=== PATIENT | female | born 1955 | race Caucasian/White ===

== ENCOUNTER 2019-10-06 13:53 | Outpatient (CLI) | payer MEDICARE, MEDICAID, SELFPAY ==
--- NOTE | 2019-10-06 14:01 | MM_ITS ---
WS: [id number] BILATERAL SCREENING DIGITAL MAMMOGRAM WITH CAD HISTORY: SCREENING COMPARISON: 08/09/2018 07/21/2017 Bilateral CC and MLO views submitted. Computer aided detection analyzed. Breast composition: There are scattered areas of fibroglandular density. No suspicious masses, microc alcifications or architectural distortion. Benign calcifications within each breast. MM/[place] [id number] IMPRESSION: BI-RADS: 2-Benign FOLLOW UP: 1 Year Follow-up
== END 2019-10-06 13:54 | disposition home or self-care (01) ==
LOC: RADSHAW 13:58
PROVIDERS: Family Provider Family Medicine; PCP Family Medicine; Visit Provider Family Medicine
DX: Z12.31 Encounter for screening mammogram for malignant neoplasm of breast (principal)
CPT/HCPCS: 77067

== ENCOUNTER → 2020-02-29 08:32 | Outpatient (BNVA) | payer MEDICARE, MEDICAID, SELFPAY | PROVIDERS: Family Provider Family Medicine; PCP Family Medicine; Referring Provider Family Medicine; Visit Provider Specialist | DX: G62.9 Polyneuropathy, unspecified (principal); G57.93 Unspecified mononeuropathy of bilateral lower limbs; M79.661 Pain in right lower leg; M79.662 Pain in left lower leg; R20.0 Anesthesia of skin; R20.2 Paresthesia of skin | CPT/HCPCS: 95909 ==

== ENCOUNTER → 2020-04-11 07:51 | Outpatient (BNVA) | payer MEDICARE, MEDICAID, SELFPAY | PROVIDERS: Family Provider Family Medicine; PCP Family Medicine; Visit Provider Licensed Practical Nurse | DX: G63 Polyneuropathy in diseases classified elsewhere (principal); R20.0 Anesthesia of skin; R20.2 Paresthesia of skin | CPT/HCPCS: 99204 ==

== ENCOUNTER 2020-04-20 08:53 | Outpatient (CLI) | payer MEDICARE, MEDICAID, SELFPAY ==
--- NOTE | 2020-04-20 09:00 | CT_ITS ---
WS: [id number] CT LUMBAR SPINE, noncontrast. HISTORY: Low back pain, gait instability TECHNIQUE: Contiguous 2.5 mm axial imaging are performed. Sagittal and coronal reformats are submitte d and reviewed. All CT scans at [facility] use at least one of these dose optimization te chniques: automated exposure control; mA and/or kV adjustment per patient size (includes targeted exa ms where dose is matched to clinical indication); or iterative reconstruction. IV contrast: None DLP: 1664.44 mGycm COMPARISON: 06/19/2008 Normal lumbar alignment. Less than 2 mm retrolisthesis of L1. Mild disc space narrowing at L1-2 and L 5-S1. Small endplate hypertrophic osteophytes at all levels. No fractures. L1-2: Mild asymmetric disc bulging. No stenosis. L2-3: Mild annular disc bulging without stenosis. L3-4: Mild annular disc bulging. No significant encroachment or focal disc protrusion. L4-5: Diffuse annular disc bulging with mild ligamentum flavum hypertrophy and facet arthritis. Mild central, subarticular recess and foraminal stenosis. L5-S1: Mild diffuse annular disc bulging with osteophytic ridging. Vertebral body osteophytes encroac h into the LEFT foramen most significantly. Effacement of fat in the foramen with slightly greater st enosis on the LEFT. Similar findings were noted on the prior study. Prior cholecystectomy. Mild atherosclerosis aorta. CT/CT lumbar spine wo con* [id number] IMPRESSION: 1. Moderate bilateral foraminal stenosis at L5-S1, greater on the LEFT. Simila r to the prior study from 2007. 2. Mild central, subarticular recess and foraminal stenosis at L4-5 is stable.
== END 2020-04-20 08:54 | disposition home or self-care (01) ==
LOC: RADWPI 08:57
PROVIDERS: Family Provider Family Medicine; PCP Family Medicine; Visit Provider Licensed Practical Nurse
DX: M54.5 Low back pain (principal); R26.89 Other abnormalities of gait and mobility; M48.07 Spinal stenosis, lumbosacral region; M48.061 Spinal stenosis, lumbar region without neurogenic claudication
CPT/HCPCS: 72131

== ENCOUNTER → 2020-05-02 10:55 | Outpatient (BNVA) | payer MEDICARE, MEDICAID, SELFPAY | PROVIDERS: Family Provider Family Medicine; PCP Family Medicine; Visit Provider Licensed Practical Nurse | DX: G63 Polyneuropathy in diseases classified elsewhere (principal) | CPT/HCPCS: 99213 ==

== ENCOUNTER 2020-05-23 12:42 | Outpatient (CLI) | payer MEDICARE, MEDICAID, SELFPAY ==
--- NOTE | 2020-05-23 12:46 | USCV_ITS ---
Alpa Barrera Age: 64 Gender: F : 1955 Exam Date: 05/23/2020 13:19 Ordering Phys: Rafal Kwok MD Technologist: Morales Morrow Exam Location: [facility] – [place] Indication: HISTORY: Lower extremity edema. PROCEDURES: Bilateral duplex Venous Insufficiency study of the Deep and Superficial systems was carried out according to normal protocol with the patient in supine positon for deep system and dependent position for the superficial system. FINDINGS: All deep veins demonstrated compressibility without evidence of intraluminal thrombus or increased echogenicity. Spectral analysis of Doppler signals demonstrates normal response to compression maneuvers indicating patency without obstruction. Reflux determinations were made with the patient in the dependent position, the weight being on the contralateral leg. Vein measurements and reflux times are listed below were applicable. No notable reflux was seen at this time. CONCLUSIONS No evidence of DVT in the above-mentioned identifiable veins. No significant venous reflux either in the deep or superficial veins Dr Toñito Becerra MD [facility] (Electronically Signed) Final Date: 24 May 2020 15:06 S
== END 2020-05-23 12:43 | disposition home or self-care (01) ==
PROVIDERS: PCP Family Medicine; Visit Provider Family Medicine
DX: I87.8 Other specified disorders of veins (principal); R60.0 Localized edema
CPT/HCPCS: 93970

== ENCOUNTER → 2020-09-06 08:53 | Outpatient (BNVA) | payer MEDICARE, MEDICAID, SELFPAY | PROVIDERS: PCP Family Medicine; Visit Provider Internal Medicine Rheumatology | DX: M05.79 Rheumatoid arthritis with rheumatoid factor of multiple sites without organ or systems involvement (principal); Z79.899 Other long term (current) drug therapy; Z11.59 Encounter for screening for other viral diseases; Z11.1 Encounter for screening for respiratory tuberculosis; M17.0 Bilateral primary osteoarthritis of knee; E11.42 Type 2 diabetes mellitus with diabetic polyneuropathy; Z79.4 Long term (current) use of insulin; Z87.891 Personal history of nicotine dependence | CPT/HCPCS: 36415; 99204 ==

== ENCOUNTER 2020-09-06 10:12 | Outpatient (CLI) | payer MEDICARE, MEDICAID, SELFPAY ==
--- NOTE | 2020-09-06 10:19 | XR_ITS ---
WS: [id number] RIGHT FOOT: 3 VIEW(S) TECHNIQUE: AP, oblique and lateral. HISTORY: M06.9 - Rheumatoid arthritis, unspecified COMPARISON: None available. Mild hallux valgus deformity. Small osteophyte along the medial first metatarsal phalangeal joint. No erosions at the metatarsal heads. No subluxations. Small calcaneal spur. No osteopenia. No soft tissue abnormality or bone destruction. XR/XR foot RT min 3V* [id number] IMPRESSION: No metatarsal erosions. Mild hallux valgus deformity.
--- NOTE | 2020-09-06 10:19 | XR_ITS ---
WS: [id number] RIGHT KNEE: 3 VIEW(S) TECHNIQUE: AP, oblique(s) and lateral. HISTORY: M06.9 - Rheumatoid arthritis, unspecified COMPARISON: None available. No fracture or dislocation. Mild narrowing of the medial compartment with small marginal osteophytes. No erosions or subluxation. Possible minimal small effusion. No soft tissue abnormality. XR/XR knee RT 3V* [id number] IMPRESSION: Mild osteoarthritis medial compartment. No erosions.
--- NOTE | 2020-09-06 10:19 | XR_ITS ---
WS: [id number] LEFT KNEE: 3 VIEW(S) TECHNIQUE: AP, oblique(s) and lateral. HISTORY: M06.9 - Rheumatoid arthritis, unspecified COMPARISON: None available. No fracture or dislocation. Mild narrowing of the medial compartment. No joint effusion. No soft tissue abnormality. XR/XR knee LT 3V* [id number] IMPRESSION: Mild medial compartment joint space narrowing.
--- NOTE | 2020-09-06 10:19 | XR_ITS ---
WS: [id number] CHEST 2 VIEWS HISTORY: M06.9 - Rheumatoid arthritis, unspecified COMPARISON: 06/27/2019 Lungs: Clear with no abnormality. No pleural effusion or pneumothorax. Cardiac size: Normal. Mediastinum/Aorta: Mild atherosclerosis aorta. Bones: Prior anterior cervical fusion hardware. XR/XR chest 2V* [id number] IMPRESSION: No acute cardiopulmonary disease. Stable chest.
--- NOTE | 2020-09-06 10:19 | XR_ITS ---
WS: [id number] LEFT HAND: 3 VIEW(S) TECHNIQUE: PA, oblique and lateral. HISTORY: M06.9 - Rheumatoid arthritis, unspecified COMPARISON: 10/04/2008 No acute fracture or dislocation. No erosions. No osteopenia. Mild interphalangeal joint space narrowing. XR/XR hand LT min 3V* [id number] IMPRESSION: 1. No metacarpal head erosions. 2. Mild osteoarthritis.
--- NOTE | 2020-09-06 10:19 | XR_ITS ---
WS: [id number] RIGHT HAND: 3 VIEW(S) TECHNIQUE: PA, oblique and lateral. HISTORY: M06.9 - Rheumatoid arthritis, unspecified COMPARISON: None available. No acute fracture or dislocation. Mild interphalangeal joint space narrowing. No erosions. No osteopenia. XR/XR hand RT min 3V* [id number] IMPRESSION: 1. No erosions. 2. Mild interphalangeal joint space narrowing due to osteoarthritis.
--- NOTE | 2020-09-06 10:19 | XR_ITS ---
WS: [id number] LEFT FOOT: 3 VIEW(S) TECHNIQUE: AP, oblique and lateral. HISTORY: M06.9 - Rheumatoid arthritis, unspecified COMPARISON: 11/09/2015 No acute fracture or dislocation. Normal tarsal/metatarsal alignment. Small calcification or osseous density again noted adjacent to the distal lateral calcaneus. Moderate size calcaneal spur. XR/XR foot LT min 3V* [id number] IMPRESSION: No metatarsal head erosions.
== END 2020-09-06 10:13 | disposition home or self-care (01) ==
PROVIDERS: PCP Family Medicine; Visit Provider Internal Medicine Rheumatology
DX: M06.9 Rheumatoid arthritis, unspecified (principal); Z79.899 Other long term (current) drug therapy; M17.11 Unilateral primary osteoarthritis, right knee; M19.042 Primary osteoarthritis, left hand; M19.041 Primary osteoarthritis, right hand; M20.11 Hallux valgus (acquired), right foot
CPT/HCPCS: 71046; 73130; 73562; 73630; 80076; 82306; 82565; 85025; 85651; 86140; 86480; 86704; 86803; 87340

== ENCOUNTER 2021-06-17 11:34 | Emergency (ER) | payer MEDICARE, MEDICAID, SELFPAY ==
[2021-06-17 11:56] VITALS: BP 182/80; PULSE 62; RESP 18; TEMP 36.3; O2SAT 98; BMI 42.5
--- NOTE | 2021-06-17 12:03 | ECG_ITS ---
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 Measurements Intervals [place] Rate: 59 P: -73 UT: 167 QRS: -7 QRSD: 74 T: 63 QT: 412 QTc: 409 Interpretive Statements ECTOPIC ATRIAL BRADYCARDIA LOW QRS VOLTAGE IN PRECORDIAL LEADS [QRS DEFLECTION < 1.0 mV IN CHEST LEADS] POSSIBLE ANTERIOR MYOCARDIAL INFARCTION , PROBABLY OLD [30 ms Q WAVE IN V3/V4, OR R < 0.2 mV IN V4] ABNORMAL RHYTHM ECG Compared to ECG 07/01/2019 12:18:20 Bradycardia, nonsinus now present Myocardial infarct finding now present Sinus bradycardia no longer present Electronically Signed On 06-17-2021 23:47:09 CDT by Toñito Becerra M.D. [id number]
--- NOTE | 2021-06-17 12:33 | XR_ITS ---
WS: [id number] Exam: XR chest 1V portable [id number] Date/Time of Exam: 06/17/2021 12:33 PM Reason For Exam: chest pain Comparison 09/06/2020. The lungs are clear and fully expanded. Normal cardiomediastinal silhouette. Normal bony structures. Costophrenic angles are sharp. Fusion hardware noted in the lower cervical spine. XR/XR chest 1V portable [id number] IMPRESSION: 1. No acute cardiopulmonary process identified.
[2021-06-17 14:01] LABS: Basophils % 0.4 %; Eosinophils # 0.2 10^3/uL (0.0-0.8); Eosinophils % 2.2 %; Hematocrit 46.6 % (37.0-47.0); Hemoglobin 15.1 g/dL (11.5-15.3); Lymphocytes # 2.8 10^3/uL (0.8-4.8); Lymphocytes % 34.5 %; Mean Corpuscular HGB Conc 32.4 g/dL (30.0-36.0); Mean Corpuscular Hemoglobin 29.9 pg (28.0-34.0); Mean Corpuscular Volume 92.3 fl (81-99); Mean Platelet Volume 11.3 fL (7.4-10.4); Monocytes # 0.6 10^3/uL (0.2-0.9); Monocytes % 7.1 %; Neutrophils # 4.47 10^3/uL (1.8-7.7); Neutrophils % 55.7 %; Nucleated Red Blood Cells % 0 %; Platelet Count 196 10^3/cmm (130-400); Red Blood Count 5.05 10^6/uL (4.1-5.3)
[2021-06-17 14:28] LABS: Alanine Aminotransferase 20 U/L (0-33); Albumin Level 4.1 g/dL (3.5-5.2); Alkaline Phosphatase 78 IU/L (35-105); Anion Gap 16.2 (5-19); Aspartate Amino Transferase 17 U/L (0-32); Blood Urea Nitrogen 17 mg/dL (8-23); Calcium 9.6 mg/dL (8.5-10.5); Carbon Dioxide 27 mmol/L (22-29); Chloride 102 mmol/L (98-107); Globulin 3.2 g/dL (1.3-4.6); Glomerular Filtration Rate 99.7 mL/min (90-130); Glucose 158 mg/dL (65-115); Osmolality Calculated 297 mOsm/kg (285-295); Potassium 4.2 mmol/L (3.5-5.1); Sodium 141 mmol/L (136-145); Total Bilirubin 0.3 mg/dL (0.15-1.2); Total Protein 7.3 g/dL (6.6-8.7)
--- NOTE | 2021-06-17 14:28 | ED_ITS ---
HPI - Chest Pain General: Chief Complaint: Chest Pain Stated Complaint: Chest Pain for Several Days Time Seen by Provider: 06/17/21 14:16 History of Present Illness: HPI narrative: 65-year-old female presents emergency room with complaint of chest pain. States she has had central chest pain radiating into her shoulders for the last 4 days intermittently at times she will get short of breath with that she does not get diaphoretic or nauseous. Is relieved by rest and slightly exacerbated by activity.. MD complaint: chest pain Onset (ago): day(s) (4) Timing of current episode: episodic Onset: during rest Pain location: substernal Pain radiation: left shoulder and right shoulder Quality: aching and heaviness Relieving factors: rest Exacerbating factors: nothing Associated symptoms: Deny abdominal pain, diaphoresis, dyspnea, fever(s), leg edema, nausea, palpitations, sense of impending doom, syncope or vomiting Treatment prior to arrival: none Review of Systems Const: Denies: fever(s) or diaphoresis ENMT: Denies: throat pain, ear or mastoid pain, nasal discharge or nasal congestion Card: Denies: palpitations or syncope Resp: Denies: dyspnea GI: Denies: abdominal pain, nausea or vomiting : Denies: flank pain, difficulty voiding, dysuria, urinary frequency or urinary urgency Skin/Breast: Denies: rash or pruritus PFSH ED PFSH: Medical History Anticoagulation adequate with anticoagulant therapy Atrial fibrillation Carotid stenosis Conversion disorder Diabetes Dyslipidemia High risk medication use IDDM (insulin dependent diabetes mellitus) Immunization counseling Numbness and tingling of both feet Seropositive rheumatoid arthritis of multiple sites Sleep apnea Surgical History History of appendectomy History of cholecystectomy History of hysterectomy Family History Mother Diabetes Hypertension Father Diabetes CAD (coronary artery disease) Hypertension Sister Hypertension Diabetes Brother Diabetes Social History Smoking and tobacco status: former smoker Alcohol intake: former Household members: spouse Marital status: Current occupational status: disabled History of recent travel: No Physical Exam Const: COMMON NORMALS: no acute distress GENERAL APPEARANCE: cooperative and comfortable ORIENTATION/CONSCIOUSNESS: Yes awake, Yes oriented to person, Yes oriented to place and Yes oriented to time HENMT: COMMON NORMALS: normocephalic, atraumatic and hearing grossly normal bilaterally HEAD & SCALP: normocephalic and atraumatic Neck/C-Spine: COMMON NORMALS: no JVD Resp: COMMON NORMALS: normal respiratory effort, No retractions, No use of accessory muscles and clear to auscultation bilaterally AUSCULTATION: clear to auscultation bilaterally Cardio: COMMON NORMALS: no JVD, regular rate, regular rhythm and No murmurs present (Cardio) RATE: regular rate RHYTHM: regular rhythm GI: COMMON NORMALS: Soft to palpation and No hepatosplenomegaly present AUSCULTATION: Yes normoactive bowel sounds PALPATION: Yes Soft to palpation, No Tenderness to palpation present (GI), No Guarding due to palpation present (GI) and Yes No hepatosplenomegaly present Extremity: COMMON NORMALS: normal to inspection, capillary refill normal, no clubbing, cyanosis or edema, no calf tenderness and no pedal edema Neuro: SENSORIUM/ORIENTATION: Yes oriented to person, Yes oriented to place and Yes oriented to time Skin: COMMON NORMALS: no rashes or lesions noted GENERAL SKIN EXAM: no rashes or lesions noted Course Vital Signs: Vital signs: Vital Signs Temperature 97.4 F L 06/17/21 11:56 Pulse Rate 62 06/17/21 15:04 Respiratory Rate 20 H 06/17/21 15:04 Blood Pressure 178/93 06/17/21 15:04 Pulse Oximetry 93 06/17/21 15:04 MDM - Chest Pain MDM Narrative: Medical decision making narrative: Labs and imaging EKGs reviewed as found in the chart. Discussed different options with the patient. She is feeling better and she would prefer to go home. Discussed going home versus admission she would prefer to go home at this point. She is on anticoagulation said no history of atrial fibrillation we will discharge her home at isosorbide mononitrate encourage patient return immediately if she has any further problems otherwise follow-up with primary care or cardiology within the next week. Lab Data: Labs: Lab Results 06/17/21 06/17/21 06/17/21 13:40 13:40 13:40 WBC 8.0 10^3/uL 10^3/ uL (4.0-10.0) RBC 5.05 10^6/uL 10^6 /uL (4.1-5.3) Hgb 15.1 g/dL g/dL (11.5-15.3) Hct 46.6 % % (37.0-47.0) MCV 92.3 fl fl (81-99) MCH 29.9 pg pg (28.0-34.0) MCHC 32.4 g/dL g/dL (30.0-36.0) RDW 13.0 % % (12.1-15.1) Plt Count 196 10^3/cmm 10^3 /cmm (130-400) MPV 11.3 fL H fL (7.4-10.4) Neut % (Auto) 55.7 % % Lymph % (Auto) 34.5 % % [place] % (Auto) 7.1 % % Eos % (Auto) 2.2 % % Baso % (Auto) 0.4 % % Neut # (Auto) 4.47 10^3/uL 10^3 /uL (1.8-7.7) Lymph # (Auto) 2.8 10^3/uL 10^3/ uL (0.8-4.8) [place] # (Auto) 0.6 10^3/uL 10^3/ uL (0.2-0.9) Eos # (Auto) 0.2 10^3/uL 10^3/ uL (0.0-0.8) Baso # (Auto) 0.0 10^3/uL 10^3/ uL (0.0-0.1) Nucleated RBC % (a uto) 0 % % Nucleated RBCs # 0.0 /100WBC /100W BC Sodium 141 mmol/L mmol/L (136-145) Potassium 4.2 mmol/L mmol/L (3.5-5.1) Chloride 102 mmol/L mmol/L (98-107) Carbon Dioxide 27 mmol/L mmol/L (22-29) Anion Gap 16.2 (5-19) BUN 17 mg/dL mg/dL (8-23) Creatinine 0.6 mg/dL mg/dL (0.5-0.9) GFR Calculation 99.7 mL/min mL/mi n (90-130) Glucose 158 mg/dL H mg/dL (65-115) Calculated Osmolal ity 297 mOsm/kg H mOs m/kg (285-295) Calcium 9.6 mg/dL mg/dL (8.5-10.5) Total Bilirubin 0.3 mg/dL mg/dL (0.15-1.2) AST 17 U/L U/L (0-32) ALT 20 U/L U/L (0-33) Alkaline Phosphata se 78 IU/L IU/L (35-105) Troponin T Baselin e 9 ng/L ng/L (0-10) Total Protein 7.3 g/dL g/dL (6.6-8.7) Albumin 4.1 g/dL g/dL (3.5-5.2) Globulin 3.2 g/dL g/dL (1.3-4.6) Discharge Plan Discharge Patient Disposition: Home Clinical Impression: Atypical chest pain, IDDM (insulin dependent diabetes mellitus), Anticoagulation adequate with anticoagulant therapy, Atrial fibrillation Condition: Stable Prescriptions: New isosorbide mononitrate 30 mg tablet extended release 24 hr 30 mg PO DAILY Qty: 30 RF: 0 No Action insulin asp prt-insulin aspart [Novolog Mix 70-30FlexPen U-100] 100 unit/mL (70-30) insulin pen 4 unit SUBCUT .sliding scale RF: 0 Tresiba FlexTouch U-200 200 unit/mL (3 mL) insulin pen 23 unit SUBCUT .at night RF: 0 sotalol 80 mg tablet 80 mg PO BID Qty: 180 RF: 4 aspirin [Aspir-81] 81 mg tablet,delayed release (DR/EC) 81 mg PO DAILY RF: 0 verapamil 180 mg capsule,ext rel. pellets 24 hr 180 mg PO DAILY Qty: 90 RF: 3 albuterol sulfate [ProAir HFA] 90 mcg/actuation HFA aerosol inhaler 2 puff INHALATION Q4H PRNRF: 0 alpha lipoic acid 200 mg capsule 200 mg PO TID RF: 0 pantoprazole 40 mg tablet,delayed release (DR/EC) 40 mg PO QAM Qty: 90 RF: 3 bismuth subsalicylate [Bismuth] 262 mg tablet,chewable 1 tab PO BID Qty: 60 RF: 4 amitriptyline 25 mg tablet 75 mg PO DAILY RF: 0 prednisone 5 mg tablet 5 mg PO DAILY Qty: 30 RF: 0 Hold Instructions: Doctor's Order sulfasalazine 500 mg tablet 1 g PO BID Qty: 120 RF: 3 amlodipine 5 mg tablet 5 mg PO DAILY Qty: 90 RF: 3 olmesartan-hydrochlorothiazide 40-12.5 mg tablet 1 tab PO DAILY Qty: 90 RF: 3 folic acid 1 mg tablet 1 mg PO DAILY Qty: 90 RF: 3 methotrexate sodium 2.5 mg tablet 15 mg PO .Q7days Qty: 30 RF: 3 diclofenac sodium 1 % gel 2 g topical QID Qty: 100 RF: 2 cholecalciferol (vitamin D3) 50 mcg (2,000 unit) capsule 50 mcg PO DAILY Qty: 30 RF: 0 acetaminophen-codeine 300-15 mg tablet 1 tab PO BID Qty: 60 RF: 5 Eliquis 5 mg tablet 5 mg PO BID Qty: 180 RF: 3 Discharge Orders: Discharge ED (Routine); Ordered 06/17/21 Ordered By: Rakesh Tobias Referrals: Rafal Kwok MD [Primary Care Provider] - Discharge Diet: Usual diet Discharge Activity: Limit activity as instructed Patient Instructions: Opioid Safety Activity Restrictions/Additional Instructions: Case management will make arrangements for you to see cardiology within the next week. Return if you have further problems. Coding Level of Care Code ED Video Tape Duplicator for Tavo Fwd Exam Comprehensive
[2021-06-17 14:31] LABS: Troponin(5th) Baseline 9 ng/L (0-10)
[2021-06-17 14:46] VITALS: BP 178/93; PULSE 55; RESP 20; O2SAT 97
[2021-06-17 15:04] VITALS: BP 178/93; PULSE 62; RESP 20; O2SAT 93
== END 2021-06-17 15:05 | disposition home or self-care (01) ==
PROVIDERS: Physician Assistant; Emergency Provider Family Medicine; PCP Family Medicine
DX: R07.89 Other chest pain (principal); E10.8 Type 1 diabetes mellitus with unspecified complications; I48.91 Unspecified atrial fibrillation; E78.5 Hyperlipidemia, unspecified; Z79.01 Long term (current) use of anticoagulants; Z79.82 Long term (current) use of aspirin; Z79.4 Long term (current) use of insulin; Z79.899 Other long term (current) drug therapy
CPT/HCPCS: 71045; 80053; 84484; 85025; 93005; 99283

== ENCOUNTER 2021-07-17 07:26 | Outpatient (CLI) | payer MEDICARE, MEDICAID, SELFPAY ==
--- NOTE | 2021-07-17 07:33 | ECG_ITS ---
[facility] Test Date: 2021-07-17 Pat Name: Alpa Barrera Department: Room: Gender: Female Slack Cooper: : 1955 Requested By: Rafal Valverde Order Number: [id number] Laurie MD: DANUTA STONE Interpretive Statements NAME OF STUDY: LEXISCAN SESTAMIBI STRESS TEST INDICATION: Chest Pain, SEND RESULTS TO DR. LANGE NOTE: Please note that this is the electrocardiogram portion of the Lexiscan/Sestamibi stress test. The perfusion scan will be documented separately. DATA: Baseline heart rate was 58 beats per minute. Baseline blood pressure was 153/87 millimeters of mercury. Target heart rate was 153. Maximum heart rate achieved was 81. which was 52 % of the predicted target heart rate. Maximum blood pressure was 153/92 millimeters of mercury. The reason for ending the test was completion of the protocol. The patient did not experience any symptoms. ELECTROCARDIOGRAM: BASELINE: Sinus rhythm. Normal axis. Otherwise, no ST-T changes suggestive of ischemia noted. No arrhythmia noted. EXERCISE: After Lexiscan injection, no ST-T changes suggestive of ischemic noted. No arrhythmia noted. 1. EKG not suggestive of ischemia 2. Lexiscan injection unremarkable. 3. Perfusion scan will be documented separately. Electronically Signed On 07-17-2021 11:34:58 FOLDER SEAMER by DANUTA STONE [id number]
--- NOTE | 2021-07-17 07:34 | NMCV_ITS ---
NM adam perf SPECT r/s* [id number] Alpa Barrera Age: 65 Gender: F : 1955 Exam Date: 07/17/2021 07:34 Ordering Phys: Rafal Kwok MD Technologist: SHARI Nunn Exam Location: [facility] Indications: CHEST PAIN STRESS TEST [facility] IMAGE PROTOCOL Rest/Stress 1 Lexiscan Day Radiopharmaceutical Dose (mCi) Administration Site Administered by Rest: Tc-99m 10.8 IV SHARI Mckoy Sestamibi Stress:Tc-99m 32.6 IV SHARI Nunn Sestamidanny Rest: 17-Jul-2021 60 Discovery 630 Stress: 17-Jul-2021 30 Discovery 630 0.4mg Lexiscan. Images obtained in supine and prone position. SPECT RESULTS Technical Quality: Excellent Raw Data Analysis: Breast attenuation Image Corrections: No attenuation or motion correction applied Summed Stress Score: 6 Summed Rest Score: 3 Summed Difference Score: 3 PERFUSION FINDINGS Small area of fixed perfusion defect noted in distal apical, apical inferior and apical lateral wall suggestive of old myocardial infarction versus scarring. FUNCTIONAL RESULTS (calculated via Gated SPECT) Stress Image LV EF (%): 71 Stress EDV (mL):102 TID: 1.06 Stress ESV (mL):30 Rest Image LV EF (%): 71 FUNCTIONAL FINDINGS: There is normal left ventricular systolic function. IMPRESSIONS Small area of old myocardial infarction versus scarring noted in the distal apical, apical inferior and apical lateral wall without precious-infarct ischemia. EKG segment to be documented separately. Fatou Valentino MD (Electronically Signed) Final Date: 17 July 2021 11:26 S
[2021-07-17 07:42] VITALS: BMI 43.4
[2021-07-17] MEDS: regadenoson 0.4 Mg/5 ml Syringe IVP (09:37)
[2021-07-17 09:54] VITALS: BP 136/84; PULSE 66
== END 2021-07-17 07:27 | disposition home or self-care (01) ==
LOC: CDL 07:27
PROVIDERS: PCP Family Medicine; Visit Provider Family Medicine
DX: R07.89 Other chest pain (principal)
CPT/HCPCS: 78452; 93017; A9500; J2785

== ENCOUNTER 2021-09-20 08:19 | Emergency (ER) | payer MEDICARE, MEDICAID, SELFPAY ==
[2021-09-20 08:33] VITALS: BP 174/83; PULSE 70; RESP 19; TEMP 36.9; O2SAT 98; BMI 43.4
--- NOTE | 2021-09-20 08:36 | CT_ITS ---
WS: [id number] CT HEAD NONCONTRAST HISTORY: Symptoms of Acute Stroke TECHNIQUE: Contiguous axial imaging performed through the brain in 2.5 mm imaging. Bone and soft tiss ue windows. Sagittal and coronal reformats reviewed. All CT scans at [facility] use at least one of these dose optimization techniques: automated exposure control; mA and/or kV adjustment per pa tient size (includes targeted exams where dose is matched to clinical indication); or iterative recon struction. DLP: 752.93 mGy.cm COMPARISON: 06/27/2019 No acute intracranial hemorrhage, midline shift or mass effect. Mild atrophy is symmetric bilaterally. No acute area of sulcal effacement. Very mild chronic microvas cular ischemic type changes. Ventricles: Normal size with no hydrocephalus. Paranasal sinuses: As visualized are clear. Mastoid air cells: Well pneumatized. Calvarium and scalp: Skull is intact with no soft tissue edema or swelling. CT/CT head wo con* [id number] IMPRESSION: 1. No acute intracranial hemorrhage or edema. 2. Mild atrophy and chronic white matter ischemic disease. No evidence for an acute infarct. Notified Rakesh Tobias DO at 09/20/2021 9:05 AM.
--- NOTE | 2021-09-20 09:02 | ED_ITS ---
HPI - Neuro Symptoms/Deficit General: Chief Complaint: Neuro Symptoms/Deficit Stated Complaint: Stoke-like symptoms Time Seen by Provider: 09/20/21 08:35 Source: patient History of Present Illness: 65-year-old female comes in complaining of numbness at the tip of her tongue on the left side as well as facial droop on the left side. This all began about a day and 1/2 to 2 days ago initially began with some pain behind the left ear. She had a difficult time closing her eye on the left side as well some tearing of the eye and difficulty with swallowing when she goes to swallow she is liquid dribble out the left corner of her mouth. She has previously had strokes in the past. She is on apixaban for atrial fibrillation. She told me that her symptoms began Thursday evening. She had told the nurse that began yesterday around noon. She has a history neuropathy and wears braces on both legs. Onset (ago): day(s) Timing confirmed by: family member Location: left face Severity: moderate Quality: weak, tingling and burning Relieving factors: none Exacerbating factors: none Context: gradual onset Associated symptoms: Deny chest pain, cough, diaphoresis, fevers/chills, headache(s), anorexia, malaise, nausea, seizures, short of breath, syncope, tingling, vertigo, vomiting or weakness Treatments Prior to Arrival: none Review of Systems Const: Denies: malaise or diaphoresis ENMT: Denies: throat pain, ear or mastoid pain, nasal discharge or nasal congestion Card: Denies: chest pain or syncope Resp: Denies: dyspnea, productive cough or non-productive cough GI: Denies: nausea or vomiting : Denies: flank pain, difficulty voiding, dysuria, urinary frequency or urinary urgency Skin/Breast: Denies: rash or pruritus Neuro: Denies: headache(s) or vertigo PFSH ED PFSH: Medical History Anticoagulation adequate with anticoagulant therapy Atrial fibrillation Carotid stenosis Conversion disorder Diabetes Dyslipidemia High risk medication use IDDM (insulin dependent diabetes mellitus) Immunization counseling Numbness and tingling of both feet Seropositive rheumatoid arthritis of multiple sites Sleep apnea Surgical History History of appendectomy History of cholecystectomy History of hysterectomy Family History Mother Diabetes Hypertension Father Diabetes CAD (coronary artery disease) Hypertension Sister Hypertension Diabetes Brother Diabetes Social History Alcohol intake: former Household members: spouse Marital status: Current occupational status: disabled History of recent travel: No NIH stroke score NIHSS: Level Of Consciousness - 1a: 0 Level Of Consciousness Questions - 1b: Both Correct Level Of Consciousness Commands - 1c: Both Correct Best Gaze - 2: Normal Visual Solitario - 3: No Visual Loss Facial Palsy - 4: Minor Paralysis Motor Arm Right - 5: No Drift Motor Arm Left - 5: No Drift Motor Leg Right - 6: No Drift Motor Leg Left - 6: No Drift Limb Ataxia - 7: Absent Sensory - 8: Normal Best Language - 9: No Aphasia Dysarthia - 10: Normal Extinction And Inattention - 11: 0 Score: Total Score: 1 Physical Exam Const: GENERAL APPEARANCE: cooperative and comfortable ORIENTATION/CONSCIOUSNESS: Yes awake, Yes oriented to person, Yes oriented to place and Yes oriented to time HENMT: COMMON NORMALS: normocephalic, atraumatic, hearing grossly normal bilaterally, external ears normal, EAC's normal, TM's normal bilaterally, Normal nasal mucous membranes and turbinates present, moist oral mucous membranes and oropharynx normal HEAD & SCALP: normocephalic and atraumatic NOSE: Normal nasal mucous membranes and turbinates present EXTERNAL EAR: Yes external ears normal EXTERNAL AUDITORY CANAL: EAC's normal TYMPANIC MEMBRANE: TM's normal bilaterally Eye: COMMON NORMALS: Equal, round and reactive pupils present, EOMs intact bilaterally, conjunctivae normal and no scleral icterus CONJUNCTIVA: Yes conjunctivae normal PUPIL: Yes Equal, round and reactive pupils present Neck/C-Spine: COMMON NORMALS: full ROM, no lymphadenopathy, supple and no JVD Lymph: LYMPHATIC: no lymphadenopathy noted and no lymphedema noted Resp: COMMON NORMALS: normal respiratory effort, No retractions, No use of accessory muscles and clear to auscultation bilaterally AUSCULTATION: clear to auscultation bilaterally Cardio: COMMON NORMALS: no JVD, regular rate, regular rhythm and No murmurs present (Cardio) RATE: regular rate RHYTHM: regular rhythm GI: COMMON NORMALS: Soft to palpation and No hepatosplenomegaly present AUSCULTATION: Yes normoactive bowel sounds PALPATION: Yes Soft to palpation, No Tenderness to palpation present (GI), No Guarding due to palpation present (GI) and Yes No hepatosplenomegaly present Extremity: COMMON NORMALS: normal to inspection, capillary refill normal, no clubbing, cyanosis or edema, no calf tenderness and no pedal edema Neuro: SENSORIUM/ORIENTATION: Yes oriented to person, Yes oriented to place and Yes oriented to time OTHER: Left-sided lower facial droop including the left forehead. Patient is unable to completely close left eye and has a droop at the corner of the left mouth. 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 She has previously had strokes per her report. She is on Eliquis and her onset of symptoms is at very best just short of 24 hours and may be even substantially longer based on the varying history she gave. CT reviewed discussed with the patient discharged home with prednisone. Medical Records I reviewed the patient's medical records. Lab Data I reviewed the patient's lab results. Radiology Impressions Head CT 09/20/21 08:36 IMPRESSION: 1. No acute intracranial hemorrhage or edema. 2. Mild atrophy and chronic white matter ischemic disease. No evidence for an acute infarct. Notified Rakesh Tobias DO at 09/20/2021 9:05 AM. Laboratory Results POC Glucose 125 mg/dL (70-110) H 09/20/21 09:11 Discharge Plan Discharge Patient Disposition: Home Clinical Impression: De Leon's palsy Condition: Stable Prescriptions: New prednisone 20 mg tablet 20 mg PO TID 5 Days Qty: 15 0RF Held prednisone 5 mg tablet 5 mg PO DAILY Qty: 30 0RF Hold Instructions: Resume on 09/25/21. Rx Instructions: take 1 tab daily for 7 days then call the Doctor with report No Action insulin asp prt-insulin aspart [Novolog Mix 70-30FlexPen U-100] 100 unit/mL (70-30) insulin pen 4 unit SUBCUT .sliding scale 0RF Tresiba FlexTouch U-200 200 unit/mL (3 mL) insulin pen 23 unit SUBCUT .at night 0RF sotalol 80 mg tablet 80 mg PO BID Qty: 180 4RF Ozempic 0.25 mg or 0.5 mg(2 mg/1.5 mL) pen injector 0.25 mg SUBCUT .WEEKLY 0RF aspirin [Aspir-81] 81 mg tablet,delayed release (DR/EC) 81 mg PO DAILY 0RF verapamil 180 mg capsule,ext rel. pellets 24 hr 180 mg PO DAILY Qty: 90 3RF albuterol sulfate [ProAir HFA] 90 mcg/actuation HFA aerosol inhaler 2 puff INHALATION Q4H PRN0RF alpha lipoic acid 200 mg capsule 200 mg PO TID 0RF pantoprazole 40 mg tablet,delayed release (DR/EC) 40 mg PO QAM Qty: 90 3RF bismuth subsalicylate [Bismuth] 262 mg tablet,chewable 1 tab PO BID Qty: 60 4RF Rx Instructions: do not exceed 16 tabs per 24 hrs amitriptyline 25 mg tablet 75 mg PO DAILY 0RF sulfasalazine 500 mg tablet 1 g PO BID Qty: 120 3RF Rx Instructions: Take 1 QD daily x1wk then 1 BID x1wk then 2 in AM and 1 HS for 1wk then 2 BID. give with food (meal/snack) amlodipine 5 mg tablet 5 mg PO DAILY Qty: 90 3RF olmesartan-hydrochlorothiazide 40-12.5 mg tablet 1 tab PO DAILY Qty: 90 3RF folic acid 1 mg tablet 1 mg PO DAILY Qty: 90 3RF methotrexate sodium 2.5 mg tablet 15 mg PO .Q7days Qty: 30 3RF Rx Instructions: take on same day 1x a week diclofenac sodium 1 % gel 2 g topical QID Qty: 100 2RF Rx Instructions: apply to affected area as needed cholecalciferol (vitamin D3) 50 mcg (2,000 unit) capsule 50 mcg PO DAILY Qty: 30 0RF acetaminophen-codeine 300-15 mg tablet 1 tab PO BID Qty: 60 5RF Rx Instructions: dose change to 300-30 and patient is to cut tab in half. spoke with jerome at pharmacy. Eliquis 5 mg tablet 5 mg PO BID Qty: 180 3RF isosorbide mononitrate 30 mg tablet extended release 24 hr 30 mg PO DAILY Qty: 30 0RF Discharge Orders: Discharge ED (Routine); Ordered 09/20/21 Ordered By: Rakesh Tobias Referrals: Rafal Kwok MD [Primary Care Provider] - Discharge Diet: Usual diet Discharge Activity: Increase activity as tolerated Patient Instructions: De Leon Palsy (ED), Opioid Safety Activity Restrictions/Additional Instructions: Follow-up with your primary care doctor as needed. Coding Level of Care Code ED Director Of Critical Care for Chg Fwd Exam Comprehensive
[2021-09-20 09:09] VITALS: BP 148/66; PULSE 61; O2SAT 95
[2021-09-20 09:16] LABS: Glucose Point of Care 125 mg/dL (70-110)
[2021-09-20 10:07] VITALS: BP 167/77; PULSE 66; O2SAT 95
== END 2021-09-20 10:15 | disposition home or self-care (01) ==
PROVIDERS: Emergency Provider Family Medicine; PCP Family Medicine
DX: G51.0 Bell's palsy (principal); Z79.01 Long term (current) use of anticoagulants; Z79.82 Long term (current) use of aspirin; Z79.4 Long term (current) use of insulin; E11.9 Type 2 diabetes mellitus without complications; E78.5 Hyperlipidemia, unspecified
CPT/HCPCS: 36416; 70450; 82962; 99283

== ENCOUNTER 2021-12-17 14:21 | Outpatient (CLI) | payer MEDICARE, MEDICAID, SELFPAY ==
--- NOTE | 2021-12-17 14:30 | XR_ITS ---
WS: [id number] DEXA (DUAL ENERGY X-RAY ABSORPTIOMETRY) Bone mineral density was performed using a Smart Balloon machine. HISTORY: POST MENOPAUSAL COMPARISON: None available. Lumbar spine BMD (L1-L4): 1.134 g/cm2 T score: -0.4 Z score: 0.1 Total hip BMD: Left: 0.991 g/cm2. T score: -0.1 Z score: 0.4 Right: 1.041 g/cm2. T score: 0.3 Z score: 0.8 10 year probability of a major osteoporotic fracture is 9%. XR/XR DEXA axial skeleton* [id number] IMPRESSION: NORMAL BONE MINERAL DENSITY based upon the WHO classification for females.
== END 2021-12-17 14:22 | disposition home or self-care (01) ==
LOC: RAD 14:24
PROVIDERS: PCP Family Medicine; Visit Provider Nurse Practitioner
DX: Z78.0 Asymptomatic menopausal state (principal)
CPT/HCPCS: 77080

== ENCOUNTER → 2022-01-07 11:01 | Outpatient (BNVA) | payer MEDICARE, MEDICAID, SELFPAY | PROVIDERS: PCP Family Medicine; Visit Provider Podiatrist Foot & Ankle Surgery | DX: E11.42 Type 2 diabetes mellitus with diabetic polyneuropathy (principal); L84 Corns and callosities; M21.371 Foot drop, right foot; M21.372 Foot drop, left foot; E11.8 Type 2 diabetes mellitus with unspecified complications; L60.3 Nail dystrophy | CPT/HCPCS: 11056; 11721 ==

== ENCOUNTER 2022-01-19 12:40 | Emergency (ER) | payer MEDICARE, MEDICAID, SELFPAY ==
[2022-01-19 12:45] VITALS: BP 201/124; PULSE 77; RESP 18; TEMP 36.6; O2SAT 94; BMI 43.8
--- NOTE | 2022-01-19 12:56 | XRR_ITS ---
PROCEDURE INFORMATION: Exam: XR Chest Exam date and time: 01/19/2022 1:17 PM Age: 66 years old Clinical indication: Shortness of breath; Additional info: Covid TECHNIQUE: Imaging protocol: XR of the chest. Views: 1 view. COMPARISON: CR XR chest 1V portable [id number] 06/17/2021 12:41 PM FINDINGS: Lungs: Unremarkable. No consolidation. Pleural spaces: Unremarkable. No pleural effusion. No pneumothorax. Heart/Mediastinum: Unremarkable. No cardiomegaly. Bones/joints: Unremarkable. XR/XR chest 1V portable [id number] IMPRESSION: No acute findings.
--- NOTE | 2022-01-19 12:56 | ECG_ITS ---
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 Measurements Intervals [place] Rate: 80 P: 45 MD: 171 QRS: 12 QRSD: 78 T: 66 QT: 368 QTc: 425 Interpretive Statements SINUS RHYTHM LOW QRS VOLTAGE IN PRECORDIAL LEADS [QRS DEFLECTION < 1.0 mV IN CHEST LEADS] POSSIBLE ANTERIOR MYOCARDIAL INFARCTION , PROBABLY OLD [30 ms Q WAVE IN V3/V4, OR R < 0.2 mV IN V4] Compared to ECG 06/17/2021 12:07:53 Bradycardia, nonsinus no longer present Myocardial infarct finding still present Electronically Signed On 01-19-2022 20:26:08 CDT by Yomi Cohn M.D. [id number]
--- NOTE | 2022-01-19 12:58 | W.ED.COVID ---
HPI - COVID General: Chief Complaint: COVID symptoms Stated Complaint: COVID Time Seen by Provider: 01/19/22 12:44 Triage information: Has fever, cough or shortness of breath. Exposure to COVID + person last 14 days History of Present Illness: 66-year-old presents due to lightheadedness. 3 days ago diagnosed with COVID-19. States today she had 1 episode of nausea and nonbloody nonbilious emesis. Denies any chest pain or abdominal pain. Denies diarrhea or constipation. Denies shortness of breath. States she felt lightheaded but did not syncopized. Denies any focal weakness numbness or tingling. Does report mild bifrontal headache that she has had since being diagnosed with COVID. Denies focal weakness numbness or tingling. COVID Results: No Data to Display Review of Systems Narrative: - CONSTITUTIONAL: Denies weight loss, fever and chills. - HEENT: Denies changes in vision and hearing. - RESPIRATORY: As above - CV: Denies palpitations and CP. - GI: As above - : Denies dysuria and urinary frequency. - MSK: Denies myalgia and joint pain. - SKIN: Denies rash and pruritus. - NEUROLOGICAL: As above - PSYCHIATRIC: Denies suicidal ideation PFS ED PFSH: Medical History Anticoagulation adequate with anticoagulant therapy Atrial fibrillation Carotid stenosis Conversion disorder Diabetes Dyslipidemia High risk medication use IDDM (insulin dependent diabetes mellitus) Immunization counseling Numbness and tingling of both feet Seropositive rheumatoid arthritis of multiple sites Sleep apnea Surgical History History of appendectomy History of cholecystectomy History of hysterectomy Family History Mother Diabetes Hypertension Father Diabetes CAD (coronary artery disease) Hypertension Sister Hypertension Diabetes Brother Diabetes Social History Smoking and tobacco status: former smoker Alcohol intake: former Household members: spouse Marital status: Current occupational status: disabled History of recent travel: No Physical Exam Narrative: EXAM NARRATIVE: - GENERAL: Alert and oriented x 3. No acute distress. Well-nourished. - EYES: EOMI. Anicteric. - HENT: Atraumatic, no C-spine tenderness. Moist mucous membranes. No scleral icterus. No cervical lymphadenopathy. - LUNGS: Clear to auscultation bilaterally. No accessory muscle use. Equal lung sounds bilaterally. No respiratory distress. - CARDIOVASCULAR: Regular rate and rhythm. No murmur. No JVD. - ABDOMEN: Soft, non-tender and non-distended. Negative CVA tenderness bilaterally, no rebound or guarding, negative Brock sign. No palpable masses. - EXTREMITIES: No edema. Non-tender. - SKIN: No rashes or lesions. Warm. - NEUROLOGIC: No meningismus or focal neurological deficits. CN II-XII grossly intact. - PSYCHIATRIC: Cooperative. Appropriate mood and affect. Course Vital Signs: Vital signs: Vital Signs Temperature 97.8 F 01/19/22 12:45 Pulse Rate 68 01/19/22 14:30 Respiratory Rate 22 H 01/19/22 13:50 Blood Pressure 160/89 01/19/22 14:30 Pulse Oximetry 99 01/19/22 14:30 MDM - COVID Medical Decision Making 66-year-old presents due to general malaise in the setting of COVID-19 infection. She has nonfocal neurologic exam. Does complain of headache but CT scan does not reveal any intracranial hemorrhage or acute abnormality. There is no meningismus. Symptoms started around the same time as other general COVID symptoms. She saturating well on room air. Remainder of lab work unremarkable. At this time I believe patient would be safe for discharge and outpatient follow-up. Return precautions provided. Plan was reviewed with the patient who expressed understanding. Questions answered. Patient will follow up with PCP. Patient discharged in stable condition. Lab Data : 01/19/22 13:20 01/19/22 14:00 Radiology Impressions Chest X-Ray 01/19/22 12:56 IMPRESSION: No acute findings. Head CT 01/19/22 12:59 IMPRESSION: There are senescent changes of the brain as described above. No evidence for large acute ischemic infarction or acute intracranial injury. Laboratory Results WBC 6.8 10^3/uL (4.0-10.0) 01/19/22 13:20 RBC 5.53 10^6/uL (4.1-5.3) H 01/19/22 13:20 Hgb 16.3 g/dL (11.5-15.3) H 01/19/22 13:20 Hct 48.2 % (37.0-47.0) H 01/19/22 13:20 MCV 87.2 fl (81-99) 01/19/22 13:20 MCH 29.5 pg (28.0-34.0) 01/19/22 13:20 MCHC 33.8 g/dL (30.0-36.0) 01/19/22 13:20 RDW 12.3 % (12.1-15.1) 01/19/22 13:20 Plt Count 183 10^3/cmm (130-400) 01/19/22 13:20 MPV 11.7 fL (7.4-10.4) H 01/19/22 13:20 Neut % (Auto) 62.6 % 01/19/22 13:20 Lymph % (Auto) 28.9 % 01/19/22 13:20 [place] % (Auto) 6.2 % 01/19/22 13:20 Eos % (Auto) 1.6 % 01/19/22 13:20 Baso % (Auto) 0.3 % 01/19/22 13:20 Neut # (Auto) 4.26 10^3/uL (1.8-7.7) 01/19/22 13:20 Lymph # (Auto) 2.0 10^3/uL (0.8-4.8) 01/19/22 13:20 [place] # (Auto) 0.4 10^3/uL (0.2-0.9) 01/19/22 13:20 Eos # (Auto) 0.1 10^3/uL (0.0-0.8) 01/19/22 13:20 Baso # (Auto) 0.0 10^3/uL (0.0-0.1) 01/19/22 13:20 Nucleated RBC % (auto) 0 % 01/19/22 13:20 Nucleated RBCs # 0.0 /100WBC 01/19/22 13:20 Sodium 140 mmol/L (136-145) 01/19/22 14:00 Potassium 4.3 mmol/L (3.5-5.1) 01/19/22 14:00 Chloride 104 mmol/L (98-107) 01/19/22 14:00 Carbon Dioxide 23 mmol/L (22-29) 01/19/22 14:00 Anion Gap 17.3 (5-19) 01/19/22 14:00 BUN 17 mg/dL (8-23) 01/19/22 14:00 Creatinine 0.6 mg/dL (0.5-0.9) 01/19/22 14:00 GFR Calculation 99.4 mL/min (90-130) 01/19/22 14:00 Glucose 137 mg/dL (65-115) H 01/19/22 14:00 Calculated Osmolality 294 mOsm/kg (285-295) 01/19/22 14:00 Calcium 8.5 mg/dL (8.5-10.5) 01/19/22 14:00 Total Bilirubin 0.4 mg/dL (0.15-1.2) 01/19/22 14:00 AST 24 U/L (0-32) 01/19/22 14:00 ALT 29 U/L (0-33) 01/19/22 14:00 Alkaline Phosphatase 72 IU/L (35-105) 01/19/22 14:00 Total Protein 6.9 g/dL (6.6-8.7) 01/19/22 14:00 Albumin 3.7 g/dL (3.5-5.2) 01/19/22 14:00 Globulin 3.2 g/dL (1.3-4.6) 01/19/22 14:00 TSH 1.81 uIU/mL (0.27-4.20) 01/19/22 14:00 Free T4 1.19 ng/dL (0.82-1.77) 01/19/22 14:00 Urine Color Straw (Yellow) 01/19/22 14:40 Urine Appearance Clear (CLEAR) 01/19/22 14:40 Urine pH 8 (5-7) H 01/19/22 14:40 Ur Specific [place] 1.010 (1.005-1.030) 01/19/22 14:40 Urine Protein Neg (Negative) 01/19/22 14:40 Urine Glucose (UA) Norm (Normal) 01/19/22 14:40 Urine Ketones Negative (Negative) 01/19/22 14:40 Urine Blood Neg (Negative) 01/19/22 14:40 Urine Nitrate Negative (Negative) 01/19/22 14:40 Urine Bilirubin Neg (Negative) 01/19/22 14:40 Prot Sulfosalicylic Acd Positive (Negative) 01/19/22 14:40 Urine Urobilinogen Norm mg/dL (Negative) 01/19/22 14:40 Ur Leukocyte Esterase Negative (Negative) 01/19/22 14:40 Urine RBC None /hpf (0-2) 01/19/22 14:40 Urine WBC Rare /hpf (0-5) 01/19/22 14:40 Ur Squamous Epith Cells 0-4 /hpf (0-5) H 01/19/22 14:40 Amorphous Sediment Not Reportable 01/19/22 14:40 Urine Bacteria Trace /hpf (NONE) 01/19/22 14:40 No Data to Display EKG Data EKG 1: Other EKG comments: Sinus rhythm, rate of 80, no sign of acute ischemia or other acute abnormality. Discharge Plan Discharge Patient Disposition: Home Clinical Impression: COVID-19 Condition: Stable Prescriptions: No Action insulin asp prt-insulin aspart [Novolog Mix 70-30FlexPen U-100] 100 unit/mL (70-30) insulin pen 4 unit SUBCUT .sliding scale 0RF Tresiba FlexTouch U-200 200 unit/mL (3 mL) insulin pen 23 unit SUBCUT .at night 0RF sotalol 80 mg tablet 80 mg PO BID Qty: 180 4RF Ozempic 0.25 mg or 0.5 mg(2 mg/1.5 mL) pen injector 0.25 mg SUBCUT .WEEKLY 0RF aspirin [Aspir-81] 81 mg tablet,delayed release (DR/EC) 81 mg PO DAILY 0RF verapamil 180 mg capsule,ext rel. pellets 24 hr 180 mg PO DAILY Qty: 90 3RF albuterol sulfate [ProAir HFA] 90 mcg/actuation HFA aerosol inhaler 2 puff INHALATION Q4H PRN0RF alpha lipoic acid 200 mg capsule 200 mg PO TID 0RF pantoprazole 40 mg tablet,delayed release (DR/EC) 40 mg PO QAM Qty: 90 3RF bismuth subsalicylate [Bismuth] 262 mg tablet,chewable 1 tab PO BID Qty: 60 4RF Rx Instructions: do not exceed 16 tabs per 24 hrs amitriptyline 25 mg tablet 75 mg PO DAILY 0RF prednisone 5 mg tablet 5 mg PO DAILY Qty: 30 0RF Hold Instructions: Resume on 09/25/21. Rx Instructions: take 1 tab daily for 7 days then call the Doctor with report sulfasalazine 500 mg tablet 1 g PO BID Qty: 120 3RF Rx Instructions: Take 1 QD daily x1wk then 1 BID x1wk then 2 in AM and 1 HS for 1wk then 2 BID. give with food (meal/snack) [place]on 36,000-114,000- 180,000 unit capsule,delayed release(DR/EC) 2 cap PO TID Qty: 180 3RF Rx Instructions: administer with meals and/or snacks gabapentin 300 mg/6 mL (6 mL) solution 300 mg PO BID 0RF amlodipine 5 mg tablet 5 mg PO DAILY Qty: 90 3RF olmesartan-hydrochlorothiazide 40-12.5 mg tablet 1 tab PO DAILY Qty: 90 3RF folic acid 1 mg tablet 1 mg PO DAILY Qty: 90 3RF methotrexate sodium 2.5 mg tablet 15 mg PO .Q7days Qty: 30 3RF Rx Instructions: take on same day 1x a week diclofenac sodium 1 % gel 2 g topical QID Qty: 100 2RF Rx Instructions: apply to affected area as needed cholecalciferol (vitamin D3) 50 mcg (2,000 unit) capsule 50 mcg PO DAILY Qty: 30 0RF Eliquis 5 mg tablet 5 mg PO BID Qty: 180 3RF acetaminophen-codeine 300-30 mg tablet 0.5 tab PO BID PRN (Reason: diarrhea) Qty: 30 0RF Rx Instructions: Patient needs appointment before further refills isosorbide mononitrate 30 mg tablet extended release 24 hr 30 mg PO DAILY Qty: 30 0RF Discharge Orders: Discharge ED (Routine); Ordered 01/19/22 Ordered By: Pablo Sosa Referrals: Rafal Kwok MD [Primary Care Provider] - 1-3 days Patient Instructions: COVID-19 (Coronavirus Disease 2019) (ED), Opioid Safety Coding Level of Care Code 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
--- NOTE | 2022-01-19 12:59 | CTR_ITS ---
PROCEDURE INFORMATION: Exam: CT Head Without Contrast Exam date and time: 01/19/2022 1:27 PM Age: 66 years old Clinical indication: Other: Confusion; Additional info: RIOS TECHNIQUE: Imaging protocol: Computed tomography of the head without contrast. Radiation optimization: All CT scans at this facility use at least one of these dose optimization techniques: automated exposure control; mA and/or kV adjustment per patient size (includes targeted exams where dose is matched to clinical indication); or iterative reconstruction. COMPARISON: CT head wo con* [id number] 09/20/2021 8:49 AM RADIATION DOSE METRICS: Total DLP (mGy-cm): 805.75 FINDINGS: Brain: There is mild diffuse cerebral atrophy present, consistent with this patient's age. Periventricular and subcortical white matter low densities are present which at this age likely represent microvascular ischemic change. There is a small chronic lacunar infarct versus prominent perivascular space in the right external capsule, similar to the prior study. No evidence for large acute ischemic infarction. Please note acute ischemia can be occult by head CT. Cerebral ventricles: No ventriculomegaly. Paranasal sinuses: There are air-fluid levels in the maxillary sinuses. Mucosal thickening is present in the maxillary sinuses and left frontal sinus. Mastoid air cells: Visualized mastoid air cells are well aerated. Bones/joints: Unremarkable. No acute fracture. Soft tissues: Unremarkable. CT/CT head wo con* [id number] IMPRESSION: There are senescent changes of the brain as described above. No evidence for large acute ischemic infarction or acute intracranial injury.
[2022-01-19 13:27] LABS: Basophils % 0.3 %; Eosinophils # 0.1 10^3/uL (0.0-0.8); Eosinophils % 1.6 %; Hematocrit 48.2 % (37.0-47.0); Hemoglobin 16.3 g/dL (11.5-15.3); Lymphocytes % 28.9 %; Mean Corpuscular HGB Conc 33.8 g/dL (30.0-36.0); Mean Corpuscular Hemoglobin 29.5 pg (28.0-34.0); Mean Corpuscular Volume 87.2 fl (81-99); Mean Platelet Volume 11.7 fL (7.4-10.4); Monocytes # 0.4 10^3/uL (0.2-0.9); Monocytes % 6.2 %; Neutrophils # 4.26 10^3/uL (1.8-7.7); Neutrophils % 62.6 %; Nucleated Red Blood Cells % 0 %; Platelet Count 183 10^3/cmm (130-400); Red Blood Count 5.53 10^6/uL (4.1-5.3); Red Cell Distribution Width 12.3 % (12.1-15.1); White Blood Count 6.8 10^3/uL (4.0-10.0)
[2022-01-19 13:30] VITALS: O2SAT 99
[2022-01-19] MEDS: sodium chloride 0.9% 1,000 ML 999 ML IV (13:31)
[2022-01-19] MEDS: ondansetron 2 mg/ML SDV 2 mL 4 MG IVP (13:31)
[2022-01-19 13:50] VITALS: BP 160/89; PULSE 86; RESP 22; O2SAT 99
[2022-01-19] MEDS: hyDRALAzine 20 mg/mL INJ 1 mL 10 MG IVP (13:52)
[2022-01-19 14:30] VITALS: BP 160/89; PULSE 68; O2SAT 99
[2022-01-19 14:34] LABS: Chloride 104 mmol/L (98-107); Potassium 4.3 mmol/L (3.5-5.1); Sodium 140 mmol/L (136-145)
[2022-01-19 14:56] LABS: Add Urine Culture? No; Bacteria Urine TRACE /hpf; Bilirubin Urine Neg (Negative); Blood Urine Neg (Negative); Glucose Urine UA Norm (Normal); Ketones Urine Negative (Negative); Leukocyte Esterase Urine Negative (Negative); Nitrate Urine Negative (Negative); Protein Urine Neg (Negative); Squamous Epithelial Cell Urine 0-4 /hpf (0-5); Sulfosalicylic Acid Urine Positive (Negative); Urine Appearance Clear (CLEAR); Urine Color Straw (Yellow); Urobilinogen Urine Norm (Negative); WBC Urine RARE /hpf (0-5); pH Urine 8 (5-7)
[2022-01-19 15:03] LABS: Alanine Aminotransferase 29 U/L (0-33); Albumin Level 3.7 g/dL (3.5-5.2); Alkaline Phosphatase 72 IU/L (35-105); Anion Gap 17.3 (5-19); Aspartate Amino Transferase 24 U/L (0-32); Blood Urea Nitrogen 17 mg/dL (8-23); Calcium 8.5 mg/dL (8.5-10.5); Carbon Dioxide 23 mmol/L (22-29); Free T4 Free Thyroxine 1.19 ng/dL (0.82-1.77); Globulin 3.2 g/dL (1.3-4.6); Glomerular Filtration Rate 99.4 mL/min (90-130); Glucose 137 mg/dL (65-115); Osmolality Calculated 294 mOsm/kg (285-295); Thyroid Stimulating Hormone 1.81 uIU/mL (0.27-4.20); Total Bilirubin 0.4 mg/dL (0.15-1.2); Total Protein 6.9 g/dL (6.6-8.7)
[2022-01-19 15:50] VITALS: BP 148/73; PULSE 78; RESP 18; TEMP 36.9; O2SAT 96
[2022-01-19 15:51] VITALS: BP 148/73; PULSE 78; RESP 18; TEMP 36.9; O2SAT 96
== END 2022-01-19 15:53 | disposition home or self-care (01) ==
PROVIDERS: Emergency Provider Emergency Medicine; PCP Family Medicine
DX: U07.1 COVID-19 (principal); R51.9 Headache, unspecified; E11.9 Type 2 diabetes mellitus without complications; I48.91 Unspecified atrial fibrillation; Z79.4 Long term (current) use of insulin; Z79.82 Long term (current) use of aspirin; Z79.01 Long term (current) use of anticoagulants; Z87.891 Personal history of nicotine dependence
CPT/HCPCS: 70450; 71045; 80053; 81001; 84439; 84443; 85025; 93005; 96361; 96374; 96375; 99285; J0360; J2405; J7030

== ENCOUNTER → 2022-05-13 09:40 | Outpatient (BNVA) | payer MEDICARE, MEDICAID, SELFPAY | PROVIDERS: PCP Family Medicine; Visit Provider Podiatrist Foot & Ankle Surgery | DX: E11.42 Type 2 diabetes mellitus with diabetic polyneuropathy (principal); L84 Corns and callosities; L60.3 Nail dystrophy; M21.371 Foot drop, right foot; M21.372 Foot drop, left foot; M21.621 Bunionette of right foot; Z79.4 Long term (current) use of insulin | CPT/HCPCS: 11056; 11721; 99213 ==

== ENCOUNTER 2022-05-25 13:01 | Emergency (ER) | payer MEDICARE, MEDICAID, SELFPAY ==
[2022-05-25] VITALS (18 sets, daily range): BP systolic 109–177; BP diastolic 62–144; PULSE 66–99; RESP 14–28; TEMP 36.2; O2SAT 93–99; BMI 43.4
--- NOTE | 2022-05-25 13:07 | XRR_ITS ---
PROCEDURE INFORMATION: Exam: XR Chest Exam date and time: 05/25/2022 1:19 PM Age: 66 years old Clinical indication: Pain; Chest pressure; Additional info: Cp TECHNIQUE: Imaging protocol: Radiologic exam of the chest. Views: 1 view. Other technique: Frontal portable upright view of the chest. COMPARISON: CR XR chest 1V portable [id number] 01/19/2022 1:17 PM FINDINGS: Tubes, catheters and devices: EKG leads are present overlying the chest. Lungs: The lungs are clear bilaterally. The pulmonary vasculature is normal. Pleural spaces: No pleural effusion. No pneumothorax. Heart/Mediastinum: The heart is normal in size and contour. Mediastinum: Stable. Bones/joints: Lower cervical spinal anterior fixation hardware. Stable. XR/XR chest 1V portable [id number] IMPRESSION: No acute cardiopulmonary abnormality identified.
--- NOTE | 2022-05-25 13:14 | ED_ITS ---
HPI - Chest Pain General: Chief Complaint: Chest Pain Stated Complaint: Chest Pain and BP Time Seen by Provider: 05/25/22 13:06 Source: patient Mode of arrival: ambulatory Limitations: no limitations History of Present Illness: 66-year-old female states she has been having chest pains over the last 3 days she states that sharp pain in the center of her chest she rates her pain a 6 out of 10 currently states she had some slight dizziness as well she denies any nausea or diaphoresis states she has had shortness of breath states she has had chronic shortness of breath for years and it is no different today. Patient is in no distress here. Associated symptoms: Deny abdominal pain, dyspnea, fever(s), nausea or vomiting Review of Systems Const: Denies: fever(s), chills, body aches or change in appetite Eyes: Denies: blurry vision or eye discomfort ENMT: Denies: throat pain or dental pain Card: Reports: chest pain Resp: Denies: dyspnea GI: Denies: abdominal pain, nausea, vomiting or diarrhea : Denies: dysuria Musc: Denies: neck pain or back pain Skin/Breast: Denies: rash Neuro: Reports: dizziness Psych: Denies: depression Rahat/Lymph: Denies: easy bruising All/Imm: Denies: urticaria PFSH ED PFSH: Medical History Anticoagulation adequate with anticoagulant therapy Atrial fibrillation Carotid stenosis Conversion disorder Diabetes Dyslipidemia High risk medication use IDDM (insulin dependent diabetes mellitus) Immunization counseling Numbness and tingling of both feet Seropositive rheumatoid arthritis of multiple sites Sleep apnea Surgical History History of appendectomy History of cholecystectomy History of hysterectomy Family History Mother Diabetes Hypertension Father Diabetes CAD (coronary artery disease) Hypertension Sister Hypertension Diabetes Brother Diabetes Social History Smoking and tobacco status: former smoker Alcohol intake: former Household members: spouse Marital status: Current occupational status: disabled History of recent travel: No Physical Exam Const: COMMON NORMALS: patient oriented x3 HENMT: COMMON NORMALS: normocephalic and atraumatic HEAD & SCALP: normocephalic and atraumatic Eye: COMMON NORMALS: Equal, round and reactive pupils present and EOMs intact bilaterally PUPIL: Yes Equal, round and reactive pupils present Neck/C-Spine: COMMON NORMALS: full ROM and supple Chest: COMMONS NORMALS: normal inspection of the chest and normal palpation of entire chest wall Resp: COMMON NORMALS: normal respiratory effort, No retractions, No use of accessory muscles and clear to auscultation bilaterally AUSCULTATION: clear to auscultation bilaterally Cardio: COMMON NORMALS: regular rate, regular rhythm and No murmurs present (Cardio) RATE: regular rate RHYTHM: regular rhythm GI: COMMON NORMALS: Normal to inspection, nondistended, normoactive bowel sounds present, Soft to palpation, non-tender and no masses PALPATION: Yes Soft to palpation Extremity: COMMON NORMALS: normal to inspection and full ROM Neuro: COMMON NORMALS: patient oriented x3, moves all extremities and no focal motor deficits Psych: COMMON NORMALS: mental status grossly normal, Normal thought process present and cooperative THOUGHT PROCESS: Normal thought process present Skin: COMMON NORMALS: no rashes or lesions noted and no wounds GENERAL SKIN EXAM: no rashes or lesions noted Course Vital Signs: Vital signs: Vital Signs Temperature 97.2 F L 05/25/22 13:04 Pulse Rate 99 05/25/22 17:15 Respiratory Rate 28 H 05/25/22 17:15 Blood Pressure 160/144 05/25/22 17:15 Pulse Oximetry 93 05/25/22 17:00 Oxygen Delivery Me thod 05/25/22 13:04 MDM - Chest Pain Medical Decision Making Patient presents with chest pain since resolved her initial repeat troponin here negative she has no signs of acute coronary syndrome no signs of dissection or pulmonary embolism. Patient is stable for discharge we will get her cardiology follow-up she is return if she has worsening pain she understands agrees to plan. Lab Data : 05/25/22 13:40 05/25/22 13:40 Radiology Impressions Chest X-Ray 05/25/22 13:07 IMPRESSION: No acute cardiopulmonary abnormality identified. Laboratory Results WBC 9.0 10^3/uL (4.0-10.0) 05/25/22 13:40 RBC 4.54 10^6/uL (4.1-5.3) 05/25/22 13:40 Hgb 13.7 g/dL (11.5-15.3) 05/25/22 13:40 Hct 42.2 % (37.0-47.0) 05/25/22 13:40 MCV 93.0 fl (81-99) 05/25/22 13:40 MCH 30.2 pg (28.0-34.0) 05/25/22 13:40 MCHC 32.5 g/dL (30.0-36.0) 05/25/22 13:40 RDW 13.0 % (12.1-15.1) 05/25/22 13:40 Plt Count 175 10^3/cmm (130-400) 05/25/22 13:40 MPV 11.6 fL (7.4-10.4) H 05/25/22 13:40 Neut % (Auto) 64.6 % 05/25/22 13:40 Lymph % (Auto) 27.2 % 05/25/22 13:40 Cascade % (Auto) 5.9 % 05/25/22 13:40 Eos % (Auto) 1.7 % 05/25/22 13:40 Baso % (Auto) 0.2 % 05/25/22 13:40 Neut # (Auto) 5.80 10^3/uL (1.8-7.7) 05/25/22 13:40 Lymph # (Auto) 2.4 10^3/uL (0.8-4.8) 05/25/22 13:40 Cascade # (Auto) 0.5 10^3/uL (0.2-0.9) 05/25/22 13:40 Eos # (Auto) 0.2 10^3/uL (0.0-0.8) 05/25/22 13:40 Baso # (Auto) 0.0 10^3/uL (0.0-0.1) 05/25/22 13:40 Nucleated RBC % (auto) 0 % 05/25/22 13:40 Nucleated RBCs # 0.0 /100WBC 05/25/22 13:40 PT 15.80 SECONDS (12.1-14.9) H 05/25/22 13:40 INR 1.23 (0.8-1.2) H 05/25/22 13:40 Sodium 140 mmol/L (136-145) 05/25/22 13:40 Potassium 3.9 mmol/L (3.5-5.1) 05/25/22 13:40 Chloride 101 mmol/L (98-107) 05/25/22 13:40 Carbon Dioxide 26 mmol/L (22-29) 05/25/22 13:40 Anion Gap 16.9 (5-19) 05/25/22 13:40 BUN 18 mg/dL (8-23) 05/25/22 13:40 Creatinine 1.1 mg/dL (0.5-0.9) H 05/25/22 13:40 GFR Calculation 49.4 mL/min (90-130) L 05/25/22 13:40 Glucose 241 mg/dL (65-115) H 05/25/22 13:40 Calculated Osmolality 300 mOsm/kg (285-295) H 05/25/22 13:40 Calcium 9.1 mg/dL (8.5-10.5) 05/25/22 13:40 Total Bilirubin 0.4 mg/dL (0.15-1.2) 05/25/22 13:40 AST 15 U/L (0-32) 05/25/22 13:40 ALT 25 U/L (0-33) 05/25/22 13:40 Alkaline Phosphatase 68 U/L (35-105) 05/25/22 13:40 Troponin T Baseline 14 ng/L (0-10) H 05/25/22 13:40 Troponin T 120 Minute 11.97 ng/L (0-10) H 05/25/22 15:53 Delta Troponin T -2.03 ABS# (0-10) L 05/25/22 15:53 NT-Pro-B Natriuret Pep 84 pg/mL (0-125) 05/25/22 13:40 Total Protein 6.5 g/dL (6.6-8.7) L 05/25/22 13:40 Albumin 3.6 g/dL (3.5-5.2) 05/25/22 13:40 Globulin 2.9 g/dL (1.3-4.6) 05/25/22 13:40 EKG Data EKG 1: I personally reviewed and interpreted this EKG as follows: EKG interpretation date: 05/25/22 EKG interpretation time: 13:14 Interpretation: nsr hr [address] or t wave abnormalities qrs 74 qtc 409 Discharge Plan Discharge Patient Disposition: Home Clinical Impression: Chest pain Condition: Stable Prescriptions: No Action insulin asp prt-insulin aspart [Novolog Mix 70-30FlexPen U-100] 100 unit/mL (70-30) insulin pen 4 unit SUBCUT .sliding scale Tresiba FlexTouch U-200 200 unit/mL (3 mL) insulin pen 23 unit SUBCUT .at night sotalol 80 mg tablet 80 mg PO BID Qty: 180 4RF Ozempic 0.25 mg or 0.5 mg(2 mg/1.5 mL) pen injector 0.25 mg SUBCUT .WEEKLY aspirin [Aspir-81] 81 mg tablet,delayed release (DR/EC) 81 mg PO DAILY verapamil 180 mg capsule,ext rel. pellets 24 hr 180 mg PO DAILY Qty: 90 3RF albuterol sulfate [ProAir HFA] 90 mcg/actuation HFA aerosol inhaler 2 puff INHALATION Q4H PRN alpha lipoic acid 200 mg capsule 200 mg PO TID pantoprazole 40 mg tablet,delayed release (DR/EC) 40 mg PO QAM Qty: 90 3RF bismuth subsalicylate [Bismuth] 262 mg tablet,chewable 1 tab PO BID Qty: 60 4RF Rx Instructions: do not exceed 16 tabs per 24 hrs amitriptyline 25 mg tablet 75 mg PO DAILY prednisone 5 mg tablet 5 mg PO DAILY Qty: 30 0RF Hold Instructions: Doctor's Order Rx Instructions: take 1 tab daily for 7 days then call the Doctor with report sulfasalazine 500 mg tablet 1 g PO BID Qty: 120 3RF Rx Instructions: Take 1 QD daily x1wk then 1 BID x1wk then 2 in AM and 1 HS for 1wk then 2 BID. give with food (meal/snack) Creon 36,000-114,000- 180,000 unit capsule,delayed release(DR/EC) 2 cap PO TID Qty: 180 3RF Rx Instructions: administer with meals and/or snacks gabapentin 300 mg/6 mL (6 mL) solution 300 mg PO BID methylprednisolone [Medrol (Donovan)] 4 mg tablets,dose pack See Rx Instructions PO PER PKG DIR Qty: 21 0RF Rx Instructions: PO PER PKG DIR amlodipine 5 mg tablet 5 mg PO DAILY Qty: 90 3RF olmesartan-hydrochlorothiazide 40-12.5 mg tablet 1 tab PO DAILY Qty: 90 3RF folic acid 1 mg tablet 1 mg PO DAILY Qty: 90 3RF methotrexate sodium 2.5 mg tablet 15 mg PO .Q7days Qty: 30 3RF Rx Instructions: take on same day 1x a week diclofenac sodium 1 % gel 2 g topical QID Qty: 100 2RF Rx Instructions: apply to affected area as needed cholecalciferol (vitamin D3) 50 mcg (2,000 unit) capsule 50 mcg PO DAILY Qty: 30 0RF Eliquis 5 mg tablet 5 mg PO BID Qty: 180 3RF acetaminophen-codeine 300-30 mg tablet 0.5 tab PO BID PRN (Reason: diarrhea) Qty: 30 0RF Rx Instructions: Patient needs appointment before further refills isosorbide mononitrate 30 mg tablet extended release 24 hr 30 mg PO DAILY Qty: 30 0RF Discharge Orders: Discharge ED (Routine); Ordered 05/25/22 Ordered By: Jamal Vasques Referrals: Yomi Cohn M.D [Physician] - 1-3 days Rafal Kwok MD [Primary Care Provider] - Discharge Diet: Advance as tolerated Discharge Activity: Resume usual activity Patient Instructions: Chest Pain (ED) Coding Level of Care Code ED Field Technical Assistant for Chg Fwd Exam Comprehensive
--- NOTE | 2022-05-25 13:14 | ECG_ITS ---
[facility] Test Date: 2022-05-25 Pat Name: Alpa Barrera Department: Room: Gender: Female Credit Representative: : 1955 Requested By: Jamal Vasques Order Number: [id number] Laurie MD: Yomi Cohn M.D. Measurements Intervals [place] Rate: 79 P: 21 [place]: 162 QRS: -7 QRSD: 74 T: 58 QT: 375 QTc: 430 Interpretive Statements SINUS RHYTHM WITH SINUS ARRHYTHMIA LOW QRS VOLTAGE IN PRECORDIAL LEADS [QRS DEFLECTION < 1.0 mV IN CHEST LEADS] POSSIBLE ANTERIOR MYOCARDIAL INFARCTION , PROBABLY OLD [30 ms Q WAVE IN V3/V4, OR R < 0.2 mV IN V4] Compared to ECG 01/19/2022 13:11:59 No significant changes Electronically Signed On 05-25-2022 22:00:09 CDT by Yomi Cohn M.D. [id number]
[2022-05-25] MEDS: meclizine 25 mg tablet PO (13:59)
[2022-05-25 14:01] LABS: Basophils % 0.2 %; Eosinophils # 0.2 10^3/uL (0.0-0.8); Eosinophils % 1.7 %; Hematocrit 42.2 % (37.0-47.0); Hemoglobin 13.7 g/dL (11.5-15.3); Lymphocytes # 2.4 10^3/uL (0.8-4.8); Lymphocytes % 27.2 %; Mean Corpuscular HGB Conc 32.5 g/dL (30.0-36.0); Mean Corpuscular Hemoglobin 30.2 pg (28.0-34.0); Mean Platelet Volume 11.6 fL (7.4-10.4); Monocytes # 0.5 10^3/uL (0.2-0.9); Monocytes % 5.9 %; Neutrophils % 64.6 %; Nucleated Red Blood Cells % 0 %; Platelet Count 175 10^3/cmm (130-400); Red Blood Count 4.54 10^6/uL (4.1-5.3)
[2022-05-25 14:16] LABS: INR 1.23 (0.8-1.2)
[2022-05-25 14:47] LABS: Troponin(5th) Baseline 14 ng/L (0-10)
[2022-05-25 14:50] LABS: Alanine Aminotransferase 25 U/L (0-33); Albumin Level 3.6 g/dL (3.5-5.2); Alkaline Phosphatase 68 U/L (35-105); Anion Gap 16.9 (5-19); Aspartate Amino Transferase 15 U/L (0-32); Blood Urea Nitrogen 18 mg/dL (8-23); Calcium 9.1 mg/dL (8.5-10.5); Carbon Dioxide 26 mmol/L (22-29); Chloride 101 mmol/L (98-107); Globulin 2.9 g/dL (1.3-4.6); Glomerular Filtration Rate 49.4 mL/min (90-130); Glucose 241 mg/dL (65-115); NT Pro B Type Natriuretic Pept 84 pg/mL (0-125); Osmolality Calculated 300 mOsm/kg (285-295); Potassium 3.9 mmol/L (3.5-5.1); Sodium 140 mmol/L (136-145); Total Bilirubin 0.4 mg/dL (0.15-1.2); Total Protein 6.5 g/dL (6.6-8.7)
--- NOTE | 2022-05-25 15:18 | ECG_ITS ---
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 Measurements Intervals [place] Rate: 79 P: 47 [place]: 164 QRS: -3 QRSD: 76 T: 45 QT: 394 QTc: 453 Interpretive Statements SINUS RHYTHM LOW QRS VOLTAGE IN PRECORDIAL LEADS [QRS DEFLECTION < 1.0 mV IN CHEST LEADS] Compared to ECG 05/25/2022 13:14:54 Sinus arrhythmia no longer present Myocardial infarct finding no longer present Electronically Signed On 05-25-2022 22:05:00 CDT by Yomi Cohn M.D. [id number]
[2022-05-25 16:33] LABS: Troponin 5 2HR 11.97 ng/L (0-10)
[2022-05-25 16:54] LABS: Troponin 5 2HR Delta -2.03 ABS# (0-10)
--- NOTE | 2022-05-26 13:53 | DCPLANNER ---
Addendum entered by Michelle Jackman 08/04/22 15:07: Patient had a follow up appointment scheduled 05.27.22 with [facility] - patient did attend appointment. Addendum entered by Michelle Jackman 05/27/22 06:03: Patient has a follow up appointment scheduled for Friday, May 27, 2022 at 3:[address] Cohn at [facility]. Clinic will call patient with appointment information. Original Note: site project manager had message to schedule a follow up appointment for patient with cardiology. site project manager sent patients information to the front office staff at [facility]. patients information will be printed and reviewed. Clinic will call patient with appointment information.
== END 2022-05-25 17:24 | disposition home or self-care (01) ==
PROVIDERS: Emergency Provider Emergency Medicine; PCP Family Medicine
DX: R07.9 Chest pain, unspecified (principal); Z79.01 Long term (current) use of anticoagulants; Z79.82 Long term (current) use of aspirin; Z79.4 Long term (current) use of insulin; Z87.891 Personal history of nicotine dependence; E11.9 Type 2 diabetes mellitus without complications; E78.5 Hyperlipidemia, unspecified
CPT/HCPCS: 36415; 71045; 80053; 83880; 84484; 85025; 85610; 93005; 99285; J8597

== ENCOUNTER → 2022-05-27 15:16 | Outpatient (BNVA) | payer MEDICARE, MEDICAID, SELFPAY | PROVIDERS: PCP Family Medicine; Visit Provider Internal Medicine | DX: R07.9 Chest pain, unspecified (principal); I48.91 Unspecified atrial fibrillation; Z79.01 Long term (current) use of anticoagulants; Z79.82 Long term (current) use of aspirin; G47.30 Sleep apnea, unspecified; E78.5 Hyperlipidemia, unspecified; E11.9 Type 2 diabetes mellitus without complications; Z79.4 Long term (current) use of insulin; I65.29 Occlusion and stenosis of unspecified carotid artery; Z87.891 Personal history of nicotine dependence | CPT/HCPCS: 99214 ==

== ENCOUNTER 2022-06-04 | Outpatient (CLI) | payer MEDICARE, MEDICAID, SELFPAY ==
[2022-06-04 09:05] LABS: Basophils % 0.6 %; Eosinophils # 0.2 10^3/uL (0.0-0.8); Eosinophils % 2.3 %; Hematocrit 40.6 % (37.0-47.0); Hemoglobin 13.8 g/dL (11.5-15.3); Lymphocytes # 1.7 10^3/uL (0.8-4.8); Lymphocytes % 25.2 %; Mean Corpuscular Hemoglobin 30.3 pg (28.0-34.0); Mean Corpuscular Volume 89.2 fl (81-99); Mean Platelet Volume 11.9 fL (7.4-10.4); Monocytes # 0.5 10^3/uL (0.2-0.9); Monocytes % 8.1 %; Neutrophils # 4.21 10^3/uL (1.8-7.7); Neutrophils % 63.3 %; Nucleated Red Blood Cells % 0 %; Platelet Count 223 10^3/cmm (130-400); Red Blood Count 4.55 10^6/uL (4.1-5.3); Red Cell Distribution Width 12.5 % (12.1-15.1); White Blood Count 6.6 10^3/uL (4.0-10.0)
[2022-06-04 09:17] LABS: INR 1.16 (0.83-1.21); Prothrombin Time (Patient) 15.1 Seconds (12.0-15.1)
[2022-06-04 09:22] LABS: Anion Gap 15.2 (5-19); Blood Urea Nitrogen 21 mg/dL (8-23); Calcium 9.7 mg/dL (8.5-10.5); Carbon Dioxide 27 mmol/L (22-29); Chloride 96 mmol/L (98-107); Glomerular Filtration Rate 62.3 mL/min (90-130); Glucose 254 mg/dL (65-115); Osmolality Calculated 290 mOsm/kg (285-295); Potassium 4.2 mmol/L (3.5-5.1); Sodium 134 mmol/L (136-145)
[2022-06-04 09:38] LABS: Slide Review Slide Review Perform
== END 2022-06-04 23:00 | disposition home or self-care (01) ==
LOC: CCL 06-24 01:45
PROVIDERS: PCP Family Medicine; Visit Provider Internal Medicine
DX: I48.91 Unspecified atrial fibrillation (principal); R58 Hemorrhage, not elsewhere classified
CPT/HCPCS: 36415; 80048; 85025; 85610

== ENCOUNTER 2022-06-18 11:20 | Outpatient (CLI) | payer MEDICARE, MEDICAID, SELFPAY ==
--- NOTE | 2022-06-18 | CT_ITS ---
WS: [id number] CT HEAD WITH AND WITHOUT CONTRAST HISTORY: VISION DISTURBANCES TECHNIQUE: Noncontrast 2.5 mm axial images obtained from the vertex to the skull base. Additional shalonda ging performed at 2.5 mm axial images status post IV contrast. Bone and soft tissue windows are revie wed. All CT scans at [facility] use at least one of these dose optimization techniques: autom ated exposure control; mA and/or kV adjustment per patient size (includes targeted exams where dose i s matched to clinical indication); or iterative reconstruction. CONTRAST: Omnipaque 350; 95 mL IV. DLP: 2020.58 mGy.cm COMPARISON: 01/19/2022 No acute intracranial hemorrhage, edema or midline shift. Mild atrophy and small vessel ischemic dise ase. Small lacunar infarct in the posterior LEFT external capsule versus perivascular space is unchan ged. Stable perivascular space or prior lacunar infarct LEFT frontal lobe. No enhancing mass or vascular malformations identified. Dural venous sinuses are normally enhancing. Visualized [place] is unremarkable. Paranasal sinuses as visualized: Clear. Mastoid air cells: Clear. Calvarium and scalp: Intact. CT/CT head wo/w con [id number] IMPRESSION: 1. No acute intracranial hemorrhage or enhancing mass. 2. Mild atrophy and small vessel ischemic disease. Very similar to the prior s tudy of 01/19/2022. 3. MRI brain with and without contrast may be helpful for additional evaluatio n
[2022-06-18] MEDS: iohexol 350 mg/mL 100 mL Btl IV (12:07)
== END 2022-06-18 11:21 | disposition home or self-care (01) ==
LOC: RAD 11:25
PROVIDERS: PCP Family Medicine; Visit Provider Family Medicine
DX: H53.9 Unspecified visual disturbance (principal); G31.9 Degenerative disease of nervous system, unspecified; I67.82 Cerebral ischemia
CPT/HCPCS: 70470

== ENCOUNTER 2022-08-01 11:11 | Outpatient (CLI) | payer MEDICARE, MEDICAID, SELFPAY ==
--- NOTE | 2022-08-01 11:15 | MM_ITS ---
WS: [id number] Bilateral screening 3D tomosynthesis digital mammogram, 08/01/2022 Clinical Data: SCREENING Comparison: 10/06/2019, 08/09/2018, 07/21/2017, 07/20/2013, 07/17/2010, 07/16/2009. Findings: The breast parenchymal pattern shows hyperglandular tissue. No spiculated masses or clustered calcifi cations are seen. There are no secondary signs of carcinoma. There are small lymph nodes in the left axilla. MM/[place] [id number] Impression: 1. Negative bilateral mammogram unchanged. 2. Recommend annual screening mammograms. BIRADS: 1-Negative FOLLOW UP: 1 Year Follow-up The CAD billing checker was used.
== END 2022-08-01 11:12 | disposition home or self-care (01) ==
PROVIDERS: PCP Family Medicine; Visit Provider Physician Assistant
DX: Z12.31 Encounter for screening mammogram for malignant neoplasm of breast (principal)
CPT/HCPCS: 77063; 77067

== ENCOUNTER 2022-08-14 12:33 | Outpatient (CLI) | payer MEDICARE, MEDICAID, SELFPAY ==
--- NOTE | 2022-08-14 12:48 | MR_ITS ---
WS: [id number] MRI HEAD WITH CONTRAST TECHNIQUE: Sagittal T1, T2 axial, T2 axial FLAIR, axial susceptibility weighted imaging, axial diffus ion weighted images, and coronal T2 images were obtained. Pre and post-T1 axial and post T1 coronal i mages. ADC and FSPGR images. CLINICAL INFORMATION: MEMORY CHANGES COMPARISON: CT June 18, 2022 FINDINGS: No evidence of restricted diffusion to suggest acute ischemia. Ventricular system and basal cisterns are patent. Prior postoperative changes in the upper cervical spine. Mild small vessel changes. Mild parenchymal volume loss. No extra-axial fluid collections. No evidence of mass or mass effect. Promin ent perivascular spaces in the basal ganglia. Normal posterior fossa. Normal vascular flow voids at the skull base. Paranasal sinuses and mastoid a ir cells are well aerated. No hemosiderin on susceptibly weighted images. Normal optic chiasm and pit uitary infundibulum. Normal cavernous sinuses and Meckel's cave. Normal temporal lobes and hippocampa l formations. No abnormal gadolinium enhancement. Normal visualized dural venous sinuses. MR/MR head wo/w con [id number] IMPRESSION: 1. No evidence of restricted diffusion to suggest acute ischemia. 2. Mild small vessel changes. No significant parenchymal volume loss 3. No abnormal gadolinium enhancement. 4. No hemosiderin on susceptibly weighted images. 5. Temporal lobes and hippocampal formations are normal in appearance.
[2022-08-14] MEDS: gadobenate dimeglumine 20 mL vial IV (13:43)
== END 2022-08-14 12:34 | disposition home or self-care (01) ==
LOC: RAD 12:35
PROVIDERS: PCP Family Medicine; Visit Provider Family Medicine
DX: R41.3 Other amnesia (principal)
CPT/HCPCS: 70553; A9577

== ENCOUNTER → 2022-11-20 08:58 | Outpatient (BNVA) | payer OTHER, MEDICAID, SELFPAY | PROVIDERS: PCP Family Medicine; Visit Provider Podiatrist Foot & Ankle Surgery | DX: E11.42 Type 2 diabetes mellitus with diabetic polyneuropathy (principal); L84 Corns and callosities; L60.3 Nail dystrophy; M21.371 Foot drop, right foot; M21.372 Foot drop, left foot; M21.621 Bunionette of right foot; Z79.4 Long term (current) use of insulin | CPT/HCPCS: 11056; 11721 ==

== ENCOUNTER 2022-11-30 14:43 | Emergency (ER) | payer MEDICARE, MEDICAID, SELFPAY ==
[2022-11-30 15:00] VITALS: BP 135/66; PULSE 80; RESP 16; TEMP 36.6; O2SAT 95
[2022-11-30 15:14] LABS: Glucose Point of Care 66 mg/dL (70-110)
--- NOTE | 2022-11-30 15:16 | ED_ITS ---
Documented by User: Law Caro MD 12/11/22 03:33 HPI - Weakness General: Chief complaint: Weakness Stated complaint: low sugar Time Seen by Provider: 11/30/22 15:16 History of Present Illness: Ms. Barrera is a 67 history of diabetes, coming with generalized weakness. She saw PCP due to hyperglycemia and was started on sliding scale. Took 18 units and started to feel worse, did not eat lunch, generalized malaise. Intensity symptoms is moderate. Course has persisted. No other specific changes in health, exacerbating, or alleviating factors identified. Onset (ago): hour(s) Severity: moderate Context: new medication Review of Systems General: Reports: 10 or more systems reviewed and unremarkable except in HPI and below PFSH ED PFSH: Medical History Anticoagulation adequate with anticoagulant therapy Atrial fibrillation Carotid stenosis Conversion disorder Diabetes Dyslipidemia High risk medication use IDDM (insulin dependent diabetes mellitus) Immunization counseling Numbness and tingling of both feet Seropositive rheumatoid arthritis of multiple sites Sleep apnea Surgical History History of appendectomy History of cholecystectomy History of hysterectomy Family History Mother Diabetes Hypertension Father Diabetes CAD (coronary artery disease) Hypertension Sister Hypertension Diabetes Brother Diabetes Social History Smoking and tobacco status: former smoker Alcohol intake: former Household members: spouse Marital status: Current occupational status: disabled Physical Exam Const: COMMON NORMALS: patient oriented x3 and alert GENERAL APPEARANCE: cooperative and well developed HENMT: COMMON NORMALS: normocephalic and atraumatic HEAD & SCALP: normoceph alic and atraumatic THROAT: posterior oropharynx normal Eye: COMMON NORMALS: conjunctivae normal CONJUNCTIVA: Yes conjunctivae normal SCLERA: sclerae normal Neck/C-Spine: COMMON NORMALS: supple GENERAL: Yes trachea midline Resp: COMMON NORMALS: normal respiratory effort EFFORT & INSPECTION: Yes able to speak in complete sentences Cardio: COMMON NORMALS: regular rate and regular rhythm RATE: regular rate RHYTHM: regular rhythm GI: COMMON NORMALS: Soft to palpation PALPATION: Yes Soft to palpation and No Tenderness to palpation present (GI) PERCUSSION: normal to percussion Extremity: GENERAL: Yes normal exam except as noted and No edema Neuro: COMMON NORMALS: patient oriented x3, CN's II-XII intact bilaterally, moves all extremities, no focal motor deficits and no sensory deficits noted SENSORIUM/ORIENTATION: Yes alert and No Orientation impaired Psych: COMMON NORMALS: mental status grossly normal and Normal thought process present THOUGHT PROCESS: Normal thought process present Course Vital Signs: Vital signs: Vital Signs Temperature 97.8 F 11/30/22 15:00 Pulse Rate 51 L 11/30/22 19:42 Respiratory Rate 16 11/30/22 19:42 Blood Pressure 172/88 11/30/22 19:42 Pulse Oximetry 97 11/30/22 19:42 Oxygen Delivery Me thod Room Air 11/30/22 19:10 MDM - Weakness Medical Decision Making 67-year-old lady presenting with low blood sugar in the context of medication change. Exam as above. No focal neurodeficits. Labs with no significant hematologic abnormality Mild dehydration on metabolic panel. Mild transaminitis of uncertain etiology. Urine pending. Patient care handed off to Dr. Vasques pending completion of ED evaluation and reassessment. Patient presents here with weakness likely from hypoglycemia her blood sugar here is improved she had recently increased her meds I informed her go back to her dose she is taking a week ago other work-up here is normal head CT is normal no signs of a stroke she is stable for discharge she is to follow-up with her PCP and return if worsening her glucose is normalized here. Medical Records I reviewed the patient's medical records. Lab Data I reviewed the patient's lab results. 11/30/22 16:15 11/30/22 16:[address] 11/30/22 17:34 IMPRESSION: No acute intracranial abnormality. Laboratory Results WBC 7.1 10^3/uL (4.0-10.0) 11/30/22 16:15 RBC 4.64 10^6/uL (4.1-5.3) 11/30/22 16:15 Hgb 13.5 g/dL (11.5-15.3) 11/30/22 16:15 Hct 41.7 % (37.0-47.0) 11/30/22 16:15 MCV 89.9 fl (81-99) 11/30/22 16:15 MCH 29.1 pg (28.0-34.0) 11/30/22 16:15 MCHC 32.4 g/dL (30.0-36.0) 11/30/22 16:15 RDW 12.9 % (12.1-15.1) 11/30/22 16:15 Plt Count 172 10^3/cmm (130-400) 11/30/22 16:15 MPV 11.9 fL (7.4-10.4) H 11/30/22 16:15 Neut % (Auto) 69.4 % 11/30/22 16:15 Lymph % (Auto) 21.4 % 11/30/22 16:15 [place] % (Auto) 6.1 % 11/30/22 16:15 Eos % (Auto) 2.5 % 11/30/22 16:15 Baso % (Auto) 0.3 % 11/30/22 16:15 Neut # (Auto) 4.92 10^3/uL (1.8-7.7) 11/30/22 16:15 Lymph # (Auto) 1.5 10^3/uL (0.8-4.8) 11/30/22 16:15 [place] # (Auto) 0.4 10^3/uL (0.2-0.9) 11/30/22 16:15 Eos # (Auto) 0.2 10^3/uL (0.0-0.8) 11/30/22 16:15 Baso # (Auto) 0.0 10^3/uL (0.0-0.1) 11/30/22 16:15 Nucleated RBC % (auto) 0 % 11/30/22 16:15 Nucleated RBCs # 0.0 /100WBC 11/30/22 16:15 Sodium 133 mmol/L (136-145) L 11/30/22 16:15 Potassium 3.5 mmol/L (3.5-5.1) 11/30/22 16:15 Chloride 97 mmol/L (98-107) L 11/30/22 16:15 Carbon Dioxide 26 mmol/L (22-29) 11/30/22 16:15 Anion Gap 13.5 (5-19) 11/30/22 16:15 BUN 21 mg/dL (8-23) 11/30/22 16:15 Creatinine 0.7 mg/dL (0.5-0.9) 11/30/22 16:15 GFR Calculation 83.0 mL/min (90-130) L 11/30/22 16:15 Glucose 190 mg/dL (65-115) H 11/30/22 16:15 POC Glucose 226 mg/dL (70-110) H 11/30/22 17:05 Calculated Osmolality 284 mOsm/kg (285-295) L 11/30/22 16:15 Calcium 8.9 mg/dL (8.5-10.5) 11/30/22 16:15 Total Bilirubin 0.4 mg/dL (0.15-1.2) 11/30/22 16:15 AST 33 U/L (0-32) H 11/30/22 16:15 ALT 38 U/L (0-33) H 11/30/22 16:15 Alkaline Phosphatase 63 U/L (35-105) 11/30/22 16:15 Total Protein 6.9 g/dL (6.6-8.7) 11/30/22 16:15 Albumin 3.6 g/dL (3.5-5.2) 11/30/22 16:15 Globulin 3.3 g/dL (1.3-4.6) 11/30/22 16:15 Urine Color Yellow (Yellow) 11/30/22 17:55 Urine Appearance Sl hazy (CLEAR) A 11/30/22 17:55 Urine pH 6 (5-7) 11/30/22 17:55 Ur Specific Howard 1.025 (1.005-1.030) 11/30/22 17:55 Urine Protein Neg (Negative) 11/30/22 17:55 Urine Glucose (UA) 2+ (Normal) H 11/30/22 17:55 Urine Ketones Negative (Negative) 11/30/22 17:55 Urine Blood Neg (Negative) 11/30/22 17:55 Urine Nitrate Negative (Negative) 11/30/22 17:55 Urine Bilirubin Neg (Negative) 11/30/22 17:55 Urine Urobilinogen Norm mg/dL (Negative) 11/30/22 17:55 Ur Leukocyte Esterase Trace (Negative) H 11/30/22 17:55 Urine RBC 0-4 /hpf (0-2) H 11/30/22 17:55 Urine WBC 0-4 /hpf (0-5) H 11/30/22 17:55 Ur Squamous Epith Cells 40-55 /hpf (0-5) H 11/30/22 17:55 Amorphous Sediment Not Reportable 11/30/22 17:55 Urine Bacteria Trace /hpf (NONE) 11/30/22 17:55 Urine Yeast 1+ /hpf H 11/30/22 17:55 Discharge Plan Discharge Patient Disposition: Home Clinical Impression: Hypoglycemia, Generalized weakness, Transaminitis Condition: Stable Prescriptions: No Action insulin asp prt-insulin aspart [Novolog Mix 70-30FlexPen U-100] 100 unit/mL (70-30) insulin pen 4 unit SUBCUT .sliding scale Tresiba FlexTouch U-200 200 unit/mL (3 mL) insulin pen 23 unit SUBCUT .at night Ozempic 0.25 mg or 0.5 mg(2 mg/1.5 mL) pen injector 0.25 mg SUBCUT .WEEKLY aspirin [Aspir-81] 81 mg tablet,delayed release (DR/EC) 81 mg PO DAILY verapamil 180 mg capsule,ext rel. pellets 24 hr 180 mg PO DAILY Qty: 90 3RF albuterol sulfate [ProAir HFA] 90 mcg/actuation HFA aerosol inhaler 2 puff INHALATION Q4H PRN (Reason: Shortness Of Breath) alpha lipoic acid 200 mg capsule 200 mg PO TID pantoprazole 40 mg tablet,delayed release (DR/EC) 40 mg PO QAM Qty: 90 3RF bismuth subsalicylate [Bismuth] 262 mg tablet,chewable 1 tab PO BID Qty: 60 4RF Rx Instructions: do not exceed 16 tabs per 24 hrs amitriptyline 25 mg tablet 75 mg PO DAILY prednisone 5 mg tablet 5 mg PO DAILY Qty: 30 0RF Hold Instructions: Doctor's Order Rx Instructions: take 1 tab daily for 7 days then call the Doctor with report sulfasalazine 500 mg tablet 1 g PO BID Qty: 120 3RF Rx Instructions: Take 1 QD daily x1wk then 1 BID x1wk then 2 in AM and 1 HS for 1wk then 2 BID. give with food (meal/snack) gabapentin 300 mg/6 mL (6 mL) solution 300 mg PO BID sotalol 80 mg tablet 80 mg PO BID Qty: 180 3RF Eliquis 5 mg tablet 5 mg PO BID Qty: 180 3RF methylprednisolone [Medrol (Donovan)] 4 mg tablets,dose pack See Rx Instructions PO PER PKG DIR Qty: 21 0RF Rx Instructions: PO PER PKG DIR amlodipine 5 mg tablet 5 mg PO DAILY Qty: 90 3RF olmesartan-hydrochlorothiazide 40-12.5 mg tablet 1 tab PO DAILY Qty: 90 3RF folic acid 1 mg tablet 1 mg PO DAILY Qty: 90 3RF methotrexate sodium 2.5 mg tablet 15 mg PO .Q7days Qty: 30 3RF Rx Instructions: take on same day 1x a week diclofenac sodium 1 % gel 2 g topical QID Qty: 100 2RF Rx Instructions: apply to affected area as needed cholecalciferol (vitamin D3) 50 mcg (2,000 unit) capsule 50 mcg PO DAILY Qty: 30 0RF acetaminophen-codeine 300-30 mg tablet 0.5 tab PO BID PRN (Reason: diarrhea) Qty: 30 0RF Rx Instructions: Patient needs appointment before further refills Creon 36,000-114,000- 180,000 unit capsule,delayed release(DR/EC) 2 cap PO TID Qty: 180 3RF Rx Instructions: administer with meals and/or snacks isosorbide mononitrate 30 mg tablet extended release 24 hr 30 mg PO DAILY Qty: 30 0RF Discharge Orders: Discharge ED (Routine); Ordered 11/30/22 Ordered By: Jamal Vasques Referrals: Rafal Kwok MD [Primary Care Provider] - Discharge Diet: Diabetic Discharge Activity: Increase activity as tolerated Patient Instructions: Hypoglycemia in a Person with Diabetes (ED), What to Do if Your Blood Sugar is Low (ED) Activity Restrictions/Additional Instructions: Thank you for visiting the emergency department. You were seen and evaluated for generalized symptoms in the context of low blood sugar. We are pleased that your blood sugar has improved. The most likely cause of symptoms is insulin use in the absence of eating. I recommend follow-up with your primary care provider. In the meantime please reduce your sliding scale to 75% or 3/4 of what you are previously instructed to take. Return to the emergency department for anything that you are concerned about and feel needs emergency department evaluation. Coding Level of Care Code ED Nurse Healthcare Manager for Chg Fwd Documented by User: Jamal Vasques MD 11/30/22 19:28 HPI - Weakness General: Chief complaint: Weakness Stated complaint: low sugar Time Seen by Provider: 11/30/22 15:16 PFSH ED PFSH: Medical History Anticoagulation adequate with anticoagulant therapy Atrial fibrillation Carotid stenosis Conversion disorder Diabetes Dyslipidemia High risk medication use IDDM (insulin dependent diabetes mellitus) Immunization counseling Numbness and tingling of both feet Seropositive rheumatoid arthritis of multiple sites Sleep apnea Surgical History History of appendectomy History of cholecystectomy History of hysterectomy Family History Mother Diabetes Hypertension Father Diabetes CAD (coronary artery disease) Hypertension Sister Hypertension Diabetes Brother Diabetes Social History Smoking and tobacco status: former smoker Alcohol intake: former Household members: spouse Marital status: Current occupational status: disabled Course Vital Signs: Vital signs: Vital Signs Temperature 97.8 F 11/30/22 15:00 Pulse Rate 51 L 11/30/22 19:42 Respiratory Rate 16 11/30/22 19:42 Blood Pressure 172/88 11/30/22 19:42 Pulse Oximetry 97 11/30/22 19:42 Oxygen Delivery Me thod Room Air 11/30/22 19:10 MDM - Weakness Medical Decision Making Patient presents here with weakness likely from hypoglycemia her blood sugar here is improved she had recently increased her meds I informed her go back to her dose she is taking a week ago other work-up here is normal head CT is normal no signs of a stroke she is stable for discharge she is to follow-up with her PCP and return if worsening her glucose is normalized here. Lab Data 11/30/22 16:15 11/30/22 16:[address] 11/30/22 17:34 IMPRESSION: No acute intracranial abnormality. Laboratory Results WBC 7.1 10^3/uL (4.0-10.0) 11/30/22 16:15 RBC 4.64 10^6/uL (4.1-5.3) 11/30/22 16:15 Hgb 13.5 g/dL (11.5-15.3) 11/30/22 16:15 Hct 41.7 % (37.0-47.0) 11/30/22 16:15 MCV 89.9 fl (81-99) 11/30/22 16:15 MCH 29.1 pg (28.0-34.0) 11/30/22 16:15 MCHC 32.4 g/dL (30.0-36.0) 11/30/22 16:15 RDW 12.9 % (12.1-15.1) 11/30/22 16:15 Plt Count 172 10^3/cmm (130-400) 11/30/22 16:15 MPV 11.9 fL (7.4-10.4) H 11/30/22 16:15 Neut % (Auto) 69.4 % 11/30/22 16:15 Lymph % (Auto) 21.4 % 11/30/22 16:15 [place] % (Auto) 6.1 % 11/30/22 16:15 Eos % (Auto) 2.5 % 11/30/22 16:15 Baso % (Auto) 0.3 % 11/30/22 16:15 Neut # (Auto) 4.92 10^3/uL (1.8-7.7) 11/30/22 16:15 Lymph # (Auto) 1.5 10^3/uL (0.8-4.8) 11/30/22 16:15 [place] # (Auto) 0.4 10^3/uL (0.2-0.9) 11/30/22 16:15 Eos # (Auto) 0.2 10^3/uL (0.0-0.8) 11/30/22 16:15 Baso # (Auto) 0.0 10^3/uL (0.0-0.1) 11/30/22 16:15 Nucleated RBC % (auto) 0 % 11/30/22 16:15 Nucleated RBCs # 0.0 /100WBC 11/30/22 16:15 Sodium 133 mmol/L (136-145) L 11/30/22 16:15 Potassium 3.5 mmol/L (3.5-5.1) 11/30/22 16:15 Chloride 97 mmol/L (98-107) L 11/30/22 16:15 Carbon Dioxide 26 mmol/L (22-29) 11/30/22 16:15 Anion Gap 13.5 (5-19) 11/30/22 16:15 BUN 21 mg/dL (8-23) 11/30/22 16:15 Creatinine 0.7 mg/dL (0.5-0.9) 11/30/22 16:15 GFR Calculation 83.0 mL/min (90-130) L 11/30/22 16:15 Glucose 190 mg/dL (65-115) H 11/30/22 16:15 POC Glucose 226 mg/dL (70-110) H 11/30/22 17:05 Calculated Osmolality 284 mOsm/kg (285-295) L 11/30/22 16:15 Calcium 8.9 mg/dL (8.5-10.5) 11/30/22 16:15 Total Bilirubin 0.4 mg/dL (0.15-1.2) 11/30/22 16:15 AST 33 U/L (0-32) H 11/30/22 16:15 ALT 38 U/L (0-33) H 11/30/22 16:15 Alkaline Phosphatase 63 U/L (35-105) 11/30/22 16:15 Total Protein 6.9 g/dL (6.6-8.7) 11/30/22 16:15 Albumin 3.6 g/dL (3.5-5.2) 11/30/22 16:15 Globulin 3.3 g/dL (1.3-4.6) 11/30/22 16:15 Urine Color Yellow (Yellow) 11/30/22 17:55 Urine Appearance Sl hazy (CLEAR) A 11/30/22 17:55 Urine pH 6 (5-7) 11/30/22 17:55 Ur Specific [place] 1.025 (1.005-1.030) 11/30/22 17:55 Urine Protein Neg (Negative) 11/30/22 17:55 Urine Glucose (UA) 2+ (Normal) H 11/30/22 17:55 Urine Ketones Negative (Negative) 11/30/22 17:55 Urine Blood Neg (Negative) 11/30/22 17:55 Urine Nitrate Negative (Negative) 11/30/22 17:55 Urine Bilirubin Neg (Negative) 11/30/22 17:55 Urine Urobilinogen Norm mg/dL (Negative) 11/30/22 17:55 Ur Leukocyte Esterase Trace (Negative) H 11/30/22 17:55 Urine RBC 0-4 /hpf (0-2) H 11/30/22 17:55 Urine WBC 0-4 /hpf (0-5) H 11/30/22 17:55 Ur Squamous Epith Cells 40-55 /hpf (0-5) H 11/30/22 17:55 Amorphous Sediment Not Reportable 11/30/22 17:55 Urine Bacteria Trace /hpf (NONE) 11/30/22 17:55 Urine Yeast 1+ /hpf H 11/30/22 17:55 Discharge Plan Discharge Patient Disposition: Home Clinical Impression: Hypoglycemia, Generalized weakness, Transaminitis Condition: Stable Prescriptions: No Action insulin asp prt-insulin aspart [Novolog Mix 70-30FlexPen U-100] 100 unit/mL (70-30) insulin pen 4 unit SUBCUT .sliding scale Tresiba FlexTouch U-200 200 unit/mL (3 mL) insulin pen 23 unit SUBCUT .at night Ozempic 0.25 mg or 0.5 mg(2 mg/1.5 mL) pen injector 0.25 mg SUBCUT .WEEKLY aspirin [Aspir-81] 81 mg tablet,delayed release (DR/EC) 81 mg PO DAILY verapamil 180 mg capsule,ext rel. pellets 24 hr 180 mg PO DAILY Qty: 90 3RF albuterol sulfate [ProAir HFA] 90 mcg/actuation HFA aerosol inhaler 2 puff INHALATION Q4H PRN (Reason: Shortness Of Breath) alpha lipoic acid 200 mg capsule 200 mg PO TID pantoprazole 40 mg tablet,delayed release (DR/EC) 40 mg PO QAM Qty: 90 3RF bismuth subsalicylate [Bismuth] 262 mg tablet,chewable 1 tab PO BID Qty: 60 4RF Rx Instructions: do not exceed 16 tabs per 24 hrs amitriptyline 25 mg tablet 75 mg PO DAILY prednisone 5 mg tablet 5 mg PO DAILY Qty: 30 0RF Hold Instructions: Doctor's Order Rx Instructions: take 1 tab daily for 7 days then call the Doctor with report sulfasalazine 500 mg tablet 1 g PO BID Qty: 120 3RF Rx Instructions: Take 1 QD daily x1wk then 1 BID x1wk then 2 in AM and 1 HS for 1wk then 2 BID. give with food (meal/snack) gabapentin 300 mg/6 mL (6 mL) solution 300 mg PO BID sotalol 80 mg tablet 80 mg PO BID Qty: 180 3RF Eliquis 5 mg tablet 5 mg PO BID Qty: 180 3RF methylprednisolone [Medrol (Donovan)] 4 mg tablets,dose pack See Rx Instructions PO PER PKG DIR Qty: 21 0RF Rx Instructions: PO PER PKG DIR amlodipine 5 mg tablet 5 mg PO DAILY Qty: 90 3RF olmesartan-hydrochlorothiazide 40-12.5 mg tablet 1 tab PO DAILY Qty: 90 3RF folic acid 1 mg tablet 1 mg PO DAILY Qty: 90 3RF methotrexate sodium 2.5 mg tablet 15 mg PO .Q7days Qty: 30 3RF Rx Instructions: take on same day 1x a week diclofenac sodium 1 % gel 2 g topical QID Qty: 100 2RF Rx Instructions: apply to affected area as needed cholecalciferol (vitamin D3) 50 mcg (2,000 unit) capsule 50 mcg PO DAILY Qty: 30 0RF acetaminophen-codeine 300-30 mg tablet 0.5 tab PO BID PRN (Reason: diarrhea) Qty: 30 0RF Rx Instructions: Patient needs appointment before further refills Creon 36,000-114,000- 180,000 unit capsule,delayed release(DR/EC) 2 cap PO TID Qty: 180 3RF Rx Instructions: administer with meals and/or snacks isosorbide mononitrate 30 mg tablet extended release 24 hr 30 mg PO DAILY Qty: 30 0RF Discharge Orders: Discharge ED (Routine); Ordered 11/30/22 Ordered By: Jamal Vasques Referrals: Rafal Kwok MD [Primary Care Provider] - Discharge Diet: Diabetic Discharge Activity: Increase activity as tolerated Patient Instructions: Hypoglycemia in a Person with Diabetes (ED), What to Do if Your Blood Sugar is Low (ED) Activity Restrictions/Additional Instructions: Thank you for visiting the emergency department. You were seen and evaluated for generalized symptoms in the context of low blood sugar. We are pleased that your blood sugar has improved. The most likely cause of symptoms is insulin use in the absence of eating. I recommend follow-up with your primary care provider. In the meantime please reduce your sliding scale to 75% or 3/4 of what you are previously instructed to take. Return to the emergency department for anything that you are concerned about and feel needs emergency department evaluation. Coding Level of Care Code ED Nurse Healthcare Manager for Tavo Gambino
[2022-11-30 16:23] LABS: Basophils % 0.3 %; Eosinophils # 0.2 10^3/uL (0.0-0.8); Eosinophils % 2.5 %; Hematocrit 41.7 % (37.0-47.0); Hemoglobin 13.5 g/dL (11.5-15.3); Lymphocytes # 1.5 10^3/uL (0.8-4.8); Lymphocytes % 21.4 %; Mean Corpuscular HGB Conc 32.4 g/dL (30.0-36.0); Mean Corpuscular Hemoglobin 29.1 pg (28.0-34.0); Mean Corpuscular Volume 89.9 fl (81-99); Mean Platelet Volume 11.9 fL (7.4-10.4); Monocytes # 0.4 10^3/uL (0.2-0.9); Monocytes % 6.1 %; Neutrophils # 4.92 10^3/uL (1.8-7.7); Neutrophils % 69.4 %; Nucleated Red Blood Cells % 0 %; Platelet Count 172 10^3/cmm (130-400); Red Blood Count 4.64 10^6/uL (4.1-5.3); Red Cell Distribution Width 12.9 % (12.1-15.1); White Blood Count 7.1 10^3/uL (4.0-10.0)
[2022-11-30 17:02] LABS: Alanine Aminotransferase 38 U/L (0-33); Albumin Level 3.6 g/dL (3.5-5.2); Alkaline Phosphatase 63 U/L (35-105); Anion Gap 13.5 (5-19); Aspartate Amino Transferase 33 U/L (0-32); Blood Urea Nitrogen 21 mg/dL (8-23); Calcium 8.9 mg/dL (8.5-10.5); Carbon Dioxide 26 mmol/L (22-29); Chloride 97 mmol/L (98-107); Globulin 3.3 g/dL (1.3-4.6); Glucose 190 mg/dL (65-115); Osmolality Calculated 284 mOsm/kg (285-295); Potassium 3.5 mmol/L (3.5-5.1); Sodium 133 mmol/L (136-145); Total Bilirubin 0.4 mg/dL (0.15-1.2); Total Protein 6.9 g/dL (6.6-8.7)
[2022-11-30 17:09] VITALS: BP 126/65; PULSE 62; O2SAT 92
[2022-11-30 17:10] LABS: Glucose Point of Care 226 mg/dL (70-110)
--- NOTE | 2022-11-30 17:34 | CTR_ITS ---
PROCEDURE INFORMATION: Exam: CT Head Without Contrast Exam date and time: 11/30/2022 6:08 PM Age: 67 years old Clinical indication: Other: Lightheaded w/low blood sugar; Patient HX: PT reports she got very light headed and her blood sugar dropped into the 50's. HX of stroke. ; Additional info: AMS TECHNIQUE: Imaging protocol: Computed tomography of the head without contrast. Radiation optimization: All CT scans at this facility use at least one of these dose optimization techniques: automated exposure control; mA and/or kV adjustment per patient size (includes targeted exams where dose is matched to clinical indication); or iterative reconstruction. REPORTING DATA: Count of CT and Cardiac NM exams in prior 12 months: This patient has received 2 known CTs and 0 known cardiac nuclear medicine studies in the 12 months prior to the current study. COMPARISON: MR head wo/w con [id number] 08/14/2022 1:15 PM RADIATION DOSE METRICS: Total DLP (mGy-cm): 1063.18 FINDINGS: Brain: Mild diffuse cortical volume loss. Very mild hypodensities in supratentorial periventricular and subcortical white matter, consistent with microangiopathy. No intracranial hemorrhage. Cerebral ventricles: No ventriculomegaly. Paranasal sinuses: Visualized sinuses are unremarkable. No fluid levels. Mastoid air cells: Visualized mastoid air cells are well aerated. Orbital cavities: Prior cataract surgery. Bones/joints: Unremarkable. No acute fracture. Soft tissues: Unremarkable. Vasculature: No hyperdense artery. CT/CT head wo con* [id number] IMPRESSION: No acute intracranial abnormality.
--- NOTE | 2022-11-30 17:35 | ECG_ITS ---
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 Measurements Intervals [place] Rate: 60 P: 35 W[place]: 194 QRS: -4 QRSD: 80 T: 46 QT: 437 QTc: 439 Interpretive Statements SINUS RHYTHM LOW QRS VOLTAGE IN PRECORDIAL LEADS [QRS DEFLECTION < 1.0 mV IN CHEST LEADS] POSSIBLE ANTERIOR MYOCARDIAL INFARCTION , PROBABLY OLD [30 ms Q WAVE IN V3/V4, OR R < 0.2 mV IN V4] POSSIBLE INFERIOR MYOCARDIAL INFARCTION , PROBABLY OLD [30 ms Q WAVE IN II/aVF] Compared to ECG 05/25/2022 15:18:35 Myocardial infarct finding now present Electronically Signed On 11-30-2022 22:13:35 CDT by Toñito Becerra M.D. [id number]
[2022-11-30] MEDS: sodium chloride 0.9% 1,000 ML 999 ML IV (18:01)
[2022-11-30 18:13] VITALS: BP 128/99
[2022-11-30 18:23] LABS: Add Urine Microscopic? YES; Bilirubin Urine Neg (Negative); Blood Urine Neg (Negative); Glucose Urine UA 2+ (Normal); Ketones Urine Negative (Negative); Leukocyte Esterase Urine Trace (Negative); Nitrate Urine Negative (Negative); Protein Urine Neg (Negative); Specific Gravity, Urine 1.025 (1.005-1.030); Urine Appearance SL Hazy (CLEAR); Urine Color Yellow (Yellow); Urobilinogen Urine Norm (Negative); pH Urine 6 (5-7)
[2022-11-30 18:25] LABS: RBC Urine 0-4 /hpf (0-2)
[2022-11-30 18:26] LABS: WBC Urine 0-4 /hpf (0-5)
[2022-11-30 18:27] LABS: Bacteria Urine TRACE /hpf; Squamous Epithelial Cell Urine 40-55 /hpf (0-5)
[2022-11-30 19:10] VITALS: BP 158/83; PULSE 51; RESP 18; O2SAT 95
[2022-11-30 19:42] VITALS: BP 172/88; PULSE 51; RESP 16; O2SAT 97
== END 2022-11-30 19:50 | disposition home or self-care (01) ==
PROVIDERS: Emergency Medicine; Emergency Provider Emergency Medicine; PCP Family Medicine
DX: E11.649 Type 2 diabetes mellitus with hypoglycemia without coma (principal); R53.1 Weakness; R74.01 Elevation of levels of liver transaminase levels; Z79.82 Long term (current) use of aspirin; Z79.01 Long term (current) use of anticoagulants; Z79.4 Long term (current) use of insulin; E78.5 Hyperlipidemia, unspecified; Z87.891 Personal history of nicotine dependence
CPT/HCPCS: 36415; 36416; 70450; 80053; 81001; 82962; 85025; 93005; 96361; 96374; 99285; J7030

== ENCOUNTER → 2023-02-11 08:36 | Outpatient (BNVA) | payer MEDICARE, MEDICAID, SELFPAY | PROVIDERS: PCP Family Medicine; Referring Provider Family Medicine; Visit Provider Specialist | DX: G43.711 Chronic migraine without aura, intractable, with status migrainosus (principal); G31.84 Mild cognitive impairment of uncertain or unknown etiology; I48.91 Unspecified atrial fibrillation; Z79.01 Long term (current) use of anticoagulants; E11.42 Type 2 diabetes mellitus with diabetic polyneuropathy; Z79.4 Long term (current) use of insulin; E11.8 Type 2 diabetes mellitus with unspecified complications; L84 Corns and callosities; L60.3 Nail dystrophy; M21.371 Foot drop, right foot; M21.372 Foot drop, left foot; M21.621 Bunionette of right foot | CPT/HCPCS: 11056; 11721; 99204 ==

== ENCOUNTER → 2023-04-10 12:11 | Outpatient (BNVA) | payer MEDICARE, MEDICAID, SELFPAY | PROVIDERS: PCP Family Medicine; Visit Provider Specialist | DX: G43.711 Chronic migraine without aura, intractable, with status migrainosus (principal); G31.84 Mild cognitive impairment of uncertain or unknown etiology | CPT/HCPCS: 99213 ==

== ENCOUNTER → 2023-05-20 08:00 | Outpatient (BNVA) | payer MEDICARE, MEDICAID, SELFPAY | PROVIDERS: PCP Family Medicine; Visit Provider Podiatrist Foot & Ankle Surgery | DX: E11.42 Type 2 diabetes mellitus with diabetic polyneuropathy (principal); L84 Corns and callosities; L60.3 Nail dystrophy; M21.371 Foot drop, right foot; M21.372 Foot drop, left foot; M21.621 Bunionette of right foot; M21.41 Flat foot [pes planus] (acquired), right foot; M21.42 Flat foot [pes planus] (acquired), left foot; M20.41 Other hammer toe(s) (acquired), right foot; M20.42 Other hammer toe(s) (acquired), left foot; Z79.4 Long term (current) use of insulin | CPT/HCPCS: 11056; 11721 ==

== ENCOUNTER 2023-06-24 11:23 | Emergency (ER) | payer MEDICARE, MEDICAID, SELFPAY ==
[2023-06-24 11:26] VITALS: BP 187/97; PULSE 61; RESP 17; TEMP 36.4; O2SAT 99; BMI 43.4
--- NOTE | 2023-06-24 11:55 | CT_ITS ---
WS: [id number] CT ABDOMEN PELVIS TECHNIQUE: Contrast-enhanced CT of the abdomen and pelvis with coronal and sagittal reformatted image s. CLINICAL INFORMATION: Diffuse Abdominal Pain COMPARISON: None. DLP: 980.[address] scans at [facility] use at least one of these dose optimization techniques: automated e xposure control; mA and/or kV adjustment per patient size (includes targeted exams where dose is matc hed to clinical indication); or iterative reconstruction. FINDINGS: Slight bibasilar atelectasis. Mild diffuse fatty filtration of the liver. Spinal granulomas . Normal portal vein and splenic vein. Fatty atrophy of the pancreas. Tiny esophageal hiatal hernia. Normal caliber abdominal aorta. Aortic calcification. Celiac and SMA are patent. Adrenal glands are n ormal. Normal renal parenchymal enhancement. No hydronephrosis. Bilateral renal cysts. A few sigmoid diverticuli. Prior hysterectomy and cholecystectomy. IMPRESSION: 1. Mild diffuse fatty filtration of the liver. Prior cholecystectomy. 2. Tiny esophageal hernia. 3. No hydronephrosis in either kidney. Bilateral renal cysts. 4. A few sigmoid diverticuli. No evidence of acute diverticulitis. 5. No other suspicious findings.
[2023-06-24] MEDS: sodium chloride 0.9% 1,000 ML 999 ML IV (12:10)
[2023-06-24] MEDS: ondansetron 2 mg/ML SDV 2 mL 4 MG IVP (12:10)
[2023-06-24 12:11] VITALS: RESP 18; O2SAT 94
[2023-06-24 12:11] LABS: Basophils % 0.4 %; Eosinophils # 0.2 10^3/uL (0.0-0.8); Hematocrit 44.8 % (36-47); Lymphocytes # 2.6 10^3/uL (0.8-4.8); Mean Corpuscular HGB Conc 33.3 g/dL (30-55); Mean Corpuscular Hemoglobin 29.7 pg (27-33); Mean Corpuscular Volume 89.2 fl (85-98); Mean Platelet Volume 11.5 fL (7.4-10.4); Monocytes # 0.4 10^3/uL (0.2-0.9); Monocytes % 5.2 %; Neutrophils % 55.1 %; Nucleated Red Blood Cells % 0 %; Platelet Count 177 10^3/cmm (157-399); Red Blood Count 5.02 10^6/uL (3.85-5.65); Red Cell Distribution Width 12.6 % (12.1-15.1); White Blood Count 7.08 10^3/uL (3.29-11.43)
[2023-06-24] MEDS: HYDROmorphone 1 mg/mL INJ 1 mL 0.5 MG IVP (12:11)
[2023-06-24 12:24] LABS: Alanine Aminotransferase 27 U/L (0-33); Albumin Level 4.1 g/dL (3.5-5.2); Alkaline Phosphatase 75 U/L (35-105); Anion Gap 14.4 (5-19); Aspartate Amino Transferase 20 U/L (0-32); Blood Urea Nitrogen 19 mg/dL (8-23); Calcium 9.7 mg/dL (8.5-10.5); Carbon Dioxide 27 mmol/L (22-29); Chloride 102 mmol/L (98-107); Globulin 3.5 g/dL (1.3-4.6); Glucose 171 mg/dL (65-115); Lipase 13 U/L (13-60); Osmolality Calculated 294 mOsm/kg (285-295); Potassium 4.4 mmol/L (3.5-5.1); Sodium 139 mmol/L (136-145); Total Bilirubin 0.3 mg/dL (0.15-1.2); Total Protein 7.6 g/dL (6.6-8.7)
[2023-06-24] MEDS: iohexol 350 mg/mL 500 mL Btl (per mL) IV (12:55)
[2023-06-24 13:01] VITALS: BP 198/92; PULSE 58; O2SAT 93
--- NOTE | 2023-06-24 13:14 | PC.PHAR ---
pt and pts verified pts medications-pt states not gotten emgality injection since the last sat in apr 2023-pt states dced ozempic 0.25mg q7d on 06/24/23-pt states she uses novolog ss up to qid as directed ext shows last filled 08/28/22 125d/s ss qpm meal-pt states she is using tresiba flextouch u-100 32 units hs ext shows last filled 08/28/22 25 units hs-notes are made in the pharmacy comments
--- NOTE | 2023-06-24 14:02 | W.ED.ABDPA2 ---
HPI - Abdominal Pain General: Chief Complaint: Abdominal Pain Stated Complaint: lower abd pain, sent by Dr Isabel Kwok Time Seen by Provider: 06/24/23 11:33 History of Present Illness: This patient is a 67-year-old white female who presents to the ER complaining of diffuse abdominal pain. The symptoms been going on for 1 week now. She has not had any nausea or vomiting. She has had diarrhea. No blood in the stool. No fever. Urination has been normal. Review of Systems General: Reports: 10 or more systems reviewed and unremarkable except in HPI and below PFSH ED PFSH: Medical History Anticoagulation adequate with anticoagulant therapy Atrial fibrillation Carotid stenosis Conversion disorder Diabetes Dyslipidemia High risk medication use IDDM (insulin dependent diabetes mellitus) Immunization counseling Numbness and tingling of both feet Seropositive rheumatoid arthritis of multiple sites Sleep apnea Surgical History History of appendectomy History of cholecystectomy History of hysterectomy Family History Mother Diabetes Hypertension Father Diabetes CAD (coronary artery disease) Hypertension Sister Hypertension Diabetes Brother Diabetes Social History Smoking and tobacco/nicotine status: former use of tobacco/nicotine Alcohol intake: former Substance/Drug Use: never Household members: spouse Marital status: Current occupational status: disabled Physical Exam Const: COMMON NORMALS: patient oriented x3 and no limitations GENERAL APPEARANCE: cooperative and comfortable OTHER: Mild distress HENMT: COMMON NORMALS: normocephalic, atraumatic, Normal nasal mucous membranes and turbinates present, moist oral mucous membranes and oropharynx normal HEAD & SCALP: normal to inspection, normocephalic and atraumatic FACE & SINUS: normal facial exam NOSE: Normal nasal mucous membranes and turbinates present Eye: COMMON NORMALS: Equal, round and reactive pupils present, EOMs intact bilaterally and conjunctivae normal GENERAL EYE: appearance normal, both eyes and all related structures CONJUNCTIVA: Yes conjunctivae normal PUPIL: Yes Equal, round and reactive pupils present Neck/C-Spine: COMMON NORMALS: supple and no JVD Chest: COMMONS NORMALS: normal inspection of the chest Resp: COMMON NORMALS: normal respiratory effort and clear to auscultation bilaterally AUSCULTATION: clear to auscultation bilaterally Cardio: COMMON NORMALS: no JVD, regular rate, regular rhythm, No gallops present (Cardio), No murmurs present (Cardio) and No rub (Cardio) RATE: regular rate RHYTHM: regular rhythm GI: COMMON NORMALS: Soft to palpation AUSCULTATION: Yes normoactive bowel sounds PALPATION: Yes Soft to palpation OTHER: Mild diffuse tenderness to palpation. : COMMON NORMALS: Yes no CVA tenderness BLADDER/KIDNEY EXAM: Yes no CVA tenderness Back/Pelvis: COMMON NORMALS: no CVA tenderness and thoracic and lumbar spine normal to inspection Extremity: COMMON NORMALS: normal to inspection Neuro: COMMON NORMALS: patient oriented x3 and CN's II-XII intact bilaterally Psych: COMMON NORMALS: mental status grossly normal, Normal thought process present and cooperative THOUGHT PROCESS: Normal thought process present Skin: COMMON NORMALS: no rashes or lesions noted, turgor normal and no jaundice GENERAL SKIN EXAM: no rashes or lesions noted and turgor normal Course Vital Signs: Vital signs: Vital Signs Temperature 97.5 F L 06/24/23 11:26 Pulse Rate 58 L 06/24/23 13:01 Respiratory Rate 18 06/24/23 12:11 Blood Pressure 198/92 06/24/23 13:01 Pulse Oximetry 93 06/24/23 13:01 Oxygen Delivery Me thod Room Air 06/24/23 11:26 MDM - Abdominal Pain Medical Decision Making Patient was given IV fluids, Zofran and Dilaudid. She is feeling better. Her CBC, CMP and lipase were normal. CT scan of the abdomen and pelvis was read by the radiologist as nothing acute. Patient likely has some gastroenteritis with spasm of the bowel. She was discharged in stable condition with prescriptions for norco and Bentyl. Follow up with PCP in 2 days for recheck if no improvement. Lab Data 06/24/23 12:00 06/24/23 12:00 Labs/Radiology: Laboratory Results WBC 7.08 10^3/uL (3.29-11.43) 06/24/23 12:00 RBC 5.02 10^6/uL (3.85-5.65) 06/24/23 12:00 Hgb 14.90 g/dL (11.27-16.99) 06/24/23 12:00 Hct 44.8 % (36-47) 06/24/23 12:00 MCV 89.2 fl (85-98) 06/24/23 12:00 MCH 29.7 pg (27-33) 06/24/23 12:00 MCHC 33.3 g/dL (30-55) 06/24/23 12:00 RDW 12.6 % (12.1-15.1) 06/24/23 12:00 Plt Count 177 10^3/cmm (157-399) 06/24/23 12:00 MPV 11.5 fL (7.4-10.4) H 06/24/23 12:00 Neut % (Auto) 55.1 % 06/24/23 12:00 Lymph % (Auto) 36.0 % 06/24/23 12:00 [place] % (Auto) 5.2 % 06/24/23 12:00 Eos % (Auto) 3.0 % 06/24/23 12:00 Baso % (Auto) 0.4 % 06/24/23 12:00 Neut # (Auto) 3.90 10^3/uL (1.8-7.7) 06/24/23 12:00 Lymph # (Auto) 2.6 10^3/uL (0.8-4.8) 06/24/23 12:00 [place] # (Auto) 0.4 10^3/uL (0.2-0.9) 06/24/23 12:00 Eos # (Auto) 0.2 10^3/uL (0.0-0.8) 06/24/23 12:00 Baso # (Auto) 0.0 10^3/uL (0.0-0.1) 06/24/23 12:00 Nucleated RBC % (auto) 0 % 06/24/23 12:00 Nucleated RBCs # 0.0 /100WBC 06/24/23 12:00 Sodium 139 mmol/L (136-145) 06/24/23 12:00 Potassium 4.4 mmol/L (3.5-5.1) 06/24/23 12:00 Chloride 102 mmol/L (98-107) 06/24/23 12:00 Carbon Dioxide 27 mmol/L (22-29) 06/24/23 12:00 Anion Gap 14.4 (5-19) 06/24/23 12:00 BUN 19 mg/dL (8-23) 06/24/23 12:00 Creatinine 0.7 mg/dL (0.5-0.9) 06/24/23 12:00 GFR Calculation 83.0 mL/min (90-130) L 06/24/23 12:00 Glucose 171 mg/dL (65-115) H 06/24/23 12:00 Calculated Osmolality 294 mOsm/kg (285-295) 06/24/23 12:00 Calcium 9.7 mg/dL (8.5-10.5) 06/24/23 12:00 Total Bilirubin 0.3 mg/dL (0.15-1.2) 06/24/23 12:00 AST 20 U/L (0-32) 06/24/23 12:00 ALT 27 U/L (0-33) 06/24/23 12:00 Alkaline Phosphatase 75 U/L (35-105) 06/24/23 12:00 Total Protein 7.6 g/dL (6.6-8.7) 06/24/23 12:00 Albumin 4.1 g/dL (3.5-5.2) 06/24/23 12:00 Globulin 3.5 g/dL (1.3-4.6) 06/24/23 12:00 Lipase 13 U/L (13-60) 06/24/23 12:00 All radiology interpretation(s) finalized by discharge Discharge Plan Discharge Patient Disposition: Home Clinical Impression: Gastroenteritis Condition: Stable Prescriptions: New dicyclomine 20 mg tablet 20 mg PO QID PRN (Reason: abdominal pain) Qty: 20 0RF hydrocodone-acetaminophen 5-325 mg tablet 1 tab PO Q4H PRN (Reason: pain) Qty: 20 0RF No Action albuterol sulfate [ProAir HFA] 90 mcg/actuation HFA aerosol inhaler 2 puff INHALATION Q4H PRN (Reason: Shortness Of Breath) sotalol 80 mg tablet 80 mg PO BID Qty: 180 3RF Eliquis 5 mg tablet 5 mg PO BID Qty: 180 3RF (DME) diabetic shoes with 3 inserts See Rx Instructions .Route .MEDSUPPLY Qty: 1 0RF Rx Instructions: As directed Creon 36,000-114,000- 180,000 unit capsule,delayed release(DR/EC) 2 cap PO TID Qty: 180 3RF Rx Instructions: administer with meals and/or snacks amitriptyline 75 mg tablet 75 mg PO BEDTIME Aspir-81 81 mg Tablet,Delayed Release (Dr/Ec) 81 mg PO QAM gabapentin 300 mg capsule 300 mg PO BID olmesartan-hydrochlorothiazide 20-12.5 mg tablet 1 tab PO QAM Ozempic 0.25 mg or 0.5 mg (2 mg/3 mL) pen injector 0.25 mg SUBCUT Q7D Rx Instructions: on (pt states dced 06/24/23) isosorbide mononitrate 30 mg tablet extended release 24 hr 30 mg PO QAM amlodipine 5 mg tablet 5 mg PO QAM topiramate 100 mg tablet 100 mg PO DAILY diclofenac sodium 1 % gel 2 g topical QID PRN (Reason: Pain) Rx Instructions: apply to affected area as needed Emgality Syringe 120 mg/mL syringe 240 mg SUBCUT Q30D Nitrostat 0.4 mg Tablet, Sublingual 0.4 mg SUBLINGUAL Q5M PRN (Reason: Chest Pain) Rx Instructions: do not exceed 3 doses per episode Novolog FlexPen U-100 Insulin 100 unit/mL (3 mL) insulin pen See Rx Instructions .ROUTE .COMPLEX Rx Instructions: sliding scale subcutaneously up to qid as directed as needed insulin degludec [Tresiba FlexTouch U-100] 100 unit/mL (3 mL) insulin pen 32 unit SUBCUT BEDTIME Discharge Orders: Discharge ED (Routine); Ordered 06/24/23 Ordered By: Ochoa Saldana Referrals: Rafal Kwok MD [Primary Care Provider] - Patient Instructions: Opioid Safety, Pain Management Coding Level of Care Code ED Doughnut Icer Machine for Tavo Gambino
[2023-06-24 14:06] VITALS: RESP 16; O2SAT 98
[2023-06-24] MEDS: HYDROmorphone 1 mg/mL INJ 1 mL IVP (14:06)
== END 2023-06-24 14:22 | disposition home or self-care (01) ==
PROVIDERS: Emergency Provider Emergency Medicine; PCP Family Medicine
DX: K52.9 Noninfective gastroenteritis and colitis, unspecified (principal); Z79.01 Long term (current) use of anticoagulants; Z79.82 Long term (current) use of aspirin; Z79.4 Long term (current) use of insulin; Z87.891 Personal history of nicotine dependence; E11.9 Type 2 diabetes mellitus without complications; E78.5 Hyperlipidemia, unspecified
CPT/HCPCS: 74177; 80053; 83690; 85025; 96361; 96374; 96375; 99285; J1170; J2405; J7030; Q9967

== ENCOUNTER → 2023-07-06 12:04 | Outpatient (BNVA) | payer MEDICARE, MEDICAID, SELFPAY | PROVIDERS: PCP Family Medicine; Visit Provider Specialist | DX: G43.711 Chronic migraine without aura, intractable, with status migrainosus (principal) | CPT/HCPCS: 99213 ==

== ENCOUNTER → 2023-08-19 07:50 | Outpatient (BNVA) | payer MEDICARE, MEDICAID, SELFPAY | PROVIDERS: PCP Family Medicine; Visit Provider Podiatrist Foot & Ankle Surgery | DX: E11.42 Type 2 diabetes mellitus with diabetic polyneuropathy (principal); L84 Corns and callosities; L60.3 Nail dystrophy; M21.371 Foot drop, right foot; M21.372 Foot drop, left foot; M21.621 Bunionette of right foot; M21.41 Flat foot [pes planus] (acquired), right foot; M21.42 Flat foot [pes planus] (acquired), left foot; Z79.4 Long term (current) use of insulin | CPT/HCPCS: 11056; 11721 ==

== ENCOUNTER → 2023-11-04 08:01 | Outpatient (BNVA) | payer MEDICARE, MEDICAID, SELFPAY | PROVIDERS: PCP Family Medicine; Visit Provider Podiatrist Foot & Ankle Surgery | DX: E11.8 Type 2 diabetes mellitus with unspecified complications (principal); E11.42 Type 2 diabetes mellitus with diabetic polyneuropathy; L84 Corns and callosities; L60.3 Nail dystrophy; M21.371 Foot drop, right foot; M21.372 Foot drop, left foot; M21.41 Flat foot [pes planus] (acquired), right foot; M21.42 Flat foot [pes planus] (acquired), left foot | CPT/HCPCS: 11721 ==

== ENCOUNTER 2023-11-11 22:17 | Emergency (ER) | payer MEDICARE, MEDICAID, SELFPAY ==
[2023-11-11 22:22] VITALS: BP 171/81; PULSE 41; RESP 16; O2SAT 94; BMI 43.4
--- NOTE | 2023-11-11 22:23 | XRR_ITS ---
PROCEDURE INFORMATION: Exam: XR Chest Exam date and time: 11/11/2023 10:34 PM Age: 67 years old Clinical indication: Other: Altered mental status; Additional info: AMS TECHNIQUE: Imaging protocol: Radiologic exam of the chest. Views: 1 view. COMPARISON: CR XR chest 2V* [id number] 11/24/2022 10:00 AM FINDINGS: Lungs: There is some questionable haziness in the left lung base although this could be artifactual from overlying soft tissue. Pleural spaces: Unremarkable. No pleural effusion. No pneumothorax. Heart/Mediastinum: Unremarkable. No cardiomegaly. Bones/joints: Metallic fusion plate in the cervical spine. XR/XR chest 1V portable [id number] IMPRESSION: Questionable left basilar infiltrate. However suspect this is artifact from overlying soft tissue
--- NOTE | 2023-11-11 22:26 | ECG_ITS ---
[facility] Test Date: 2023-11-11 Pat Name: Alpa Barrera Department: Room: Gender: Female Lead Database Administrator: : [id number] Requested By: Ruben Pedroza Order Number: [id number] Laurie MD: Yomi Cohn M.D. Measurements Intervals [place] Rate: 41 P: 84 ID: [id number] QRS: 26 QRSD: 85 T: 81 QT: 488 QTc: 404 Interpretive Statements SINUS BRADYCARDIA LOW QRS VOLTAGE IN PRECORDIAL LEADS [QRS DEFLECTION < 1.0 mV IN CHEST LEADS] Compared to ECG 11/30/2022 18:40:07 Sinus rhythm no longer present Myocardial infarct finding no longer present Electronically Signed On 11-12-2023 7:52:01 CDT by Yomi Cohn M.D. [email or web address]
--- NOTE | 2023-11-11 22:29 | CTR_ITS ---
PROCEDURE INFORMATION: Exam: CT Head Without Contrast Exam date and time: 11/11/2023 10:53 PM Age: 67 years old Clinical indication: Altered mental status/memory loss; Additional info: AMS TECHNIQUE: Imaging protocol: Computed tomography of the head without contrast. Radiation optimization: All CT scans at this facility use at least one of these dose optimization techniques: automated exposure control; mA and/or kV adjustment per patient size (includes targeted exams where dose is matched to clinical indication); or iterative reconstruction. COMPARISON: CT head wo con* [id number] 11/30/2022 6:08 PM RADIATION DOSE METRICS: Total DLP (mGy-cm): 1058.29 FINDINGS: Brain: No CT evidence for acute ischemia, mass or hemorrhage. No extra-axial fluid collection, midline shift or hydrocephalus. Sulci and ventricles are appropriate in size for age. Cerebral ventricles: See Brain finding. Paranasal sinuses: Mild mucosal thickening in the left maxillary sinus. Mastoid air cells: Visualized mastoid air cells are well aerated. Bones/joints: Unremarkable. No acute fracture. Soft tissues: Unremarkable. CT/CT head wo con* [id number] IMPRESSION: No acute intracranial findings.
[2023-11-11] MEDS: dextrose 10% 125 ML 750 ML IV (22:31)
[2023-11-11] MEDS: ondansetron 2 mg/ML SDV 2 mL 4 MG IVP (22:37)
[2023-11-11 22:39] LABS: Basophils % 0.3 %; Eosinophils # 0.2 10^3/uL (0.0-0.8); Eosinophils % 2.3 %; Hematocrit 42.6 % (36-47); Lymphocytes # 3.4 10^3/uL (0.8-4.8); Lymphocytes % 42.3 %; Mean Corpuscular HGB Conc 33.3 g/dL (30-55); Mean Corpuscular Hemoglobin 30.4 pg (27-33); Mean Corpuscular Volume 91.2 fl (85-98); Monocytes # 0.5 10^3/uL (0.2-0.9); Monocytes % 6.3 %; Neutrophils # 3.86 10^3/uL (1.8-7.7); Neutrophils % 48.7 %; Nucleated Red Blood Cells % 0 %; Platelet Count 169 10^3/cmm (157-399); Red Blood Count 4.67 10^6/uL (3.85-5.65); White Blood Count 7.92 10^3/uL (3.29-11.43)
[2023-11-11] MEDS: glucagon 1 mg/mL KIT 1 mL IVP (22:39)
[2023-11-11 22:57] LABS: Troponin(5th) Baseline 15 ng/L (0-10)
[2023-11-11 23:00] VITALS: TEMP 35.5
[2023-11-11 23:00] LABS: Lactic Sepsis W/Reflex 1.6 mmol/L (0.5-2.2)
[2023-11-11 23:06] LABS: Glucose Point of Care 152 mg/dL (70-110)
[2023-11-11 23:06] LABS: Glucose Point of Care 103 mg/dL (70-110)
[2023-11-11 23:06] LABS: Glucose Point of Care 107 mg/dL (70-110)
[2023-11-11 23:15] VITALS: BP 183/78; PULSE 41; RESP 16; O2SAT 93
[2023-11-11 23:36] LABS: Add Urine Microscopic? NO; Charge for UA Resulting for Rev
[2023-11-11 23:43] LABS: Bilirubin Urine Neg (Negative); Blood Urine Neg (Negative); Glucose Urine UA Norm (Normal); Ketones Urine Negative (Negative); Leukocyte Esterase Urine Negative (Negative); Nitrate Urine Negative (Negative); Protein Urine Neg (Negative); Sulfosalicylic Acid Urine Negative (Negative); Urine Appearance Clear (CLEAR); Urine Color Light yellow (Yellow); Urobilinogen Urine Neg (Negative); pH Urine 8 (5-7)
[2023-11-11 23:46] LABS: Alanine Aminotransferase 21 U/L (0-33); Albumin Level 3.8 g/dL (3.5-5.2); Alkaline Phosphatase 62 U/L (35-105); Anion Gap 13.7 (5-19); Aspartate Amino Transferase 25 U/L (0-32); Blood Urea Nitrogen 24 mg/dL (8-23); Calcium 9.3 mg/dL (8.5-10.5); Carbon Dioxide 26 mmol/L (22-29); Chloride 102 mmol/L (98-107); Globulin 3.2 g/dL (1.3-4.6); Glucose 150 mg/dL (65-115); Osmolality Calculated 293 mOsm/kg (285-295); Potassium 3.7 mmol/L (3.5-5.1); Sodium 138 mmol/L (136-145); Total Bilirubin 0.4 mg/dL (0.15-1.2)
[2023-11-11 23:53] LABS: Procalcitonin 0.05 ng/mL (0-0.5)
[2023-11-11 23:54] VITALS: BP 160/83; PULSE 41; RESP 16; O2SAT 98
[2023-11-12] VITALS: BP 150/69; PULSE 37; RESP 13; O2SAT 90
[2023-11-12 00:06] LABS: Glucose Point of Care 167 mg/dL (70-110)
--- NOTE | 2023-11-12 00:24 | ED_ITS ---
HPI - Recheck/Abnormal Lab/Rx 2 General: Chief Complaint: Recheck/Abnormal Lab/Rx Stated Complaint: hypoglycemia Time Seen by Provider: 11/11/23 22:23 History of Present Illness: 67-year-old female presents emergency de partment via EMS personnel secondary to altered mental status. The family members state that the patient became unresponsive and was cool and clammy and EMS reported an initial blood glucose of 39 upon arrival. The patient did receive D10 and rates her blood glucose level per EMS to 237. The patient does appear to still be lethargic upon arrival her repeat blood glucose level was 103. She does not appear to be in acute distress. Review of Systems 2 General: Reports: ROS unobtainable due to medical condition and ROS unobtainable due to mental status PFSH ED 2 PFSH: Medical History Immunization counseling High risk medication use IDDM (insulin dependent diabetes mellitus) Seropositive rheumatoid arthritis of multiple sites Numbness and tingling of both feet Anticoagulation adequate with anticoagulant therapy Sleep apnea Conversion disorder Carotid stenosis Dyslipidemia Diabetes Atrial fibrillation Surgical History History of hysterectomy History of appendectomy History of cholecystectomy Family History Mother Diabetes Hypertension Father Diabetes CAD (coronary artery disease) Hypertension Sister Hypertension Diabetes Brother Diabetes Social History Smoking and tobacco/nicotine status: former use of tobacco/nicotine Alcohol intake: former Substance/Drug Use: never Household members: spouse Marital status: Current occupational status: disabled Physical Exam 2 Narrative: EXAM NARRATIVE: Constitutional: Lethargic, with normal development. Vital signs reviewed as documented. HENMT: Normocephalic, atraumatic. External ears normal appearance without drainage. Nose without drainage, normal appearance. Mucus membranes moist. Neck is supple, No jugular venous distension, trachea is midline, no appreciable carotid bruits. No lymphadenopathy. No meningeal signs. Flexion, extension and lateral rotation is without pain. Eyes: Pupils are equal, round, reactive to light and accommodation. No scleral icterus. Extra-ocular movement are intact. Thorax is symmetrical and with equal rise and fall with respirations. Resp: Lungs are clear to auscultation. No wheezes, rales, crackles or ronchi at present. Cardio: Regular rate and rhythm. Positive S1, S2. No appreciable murmurs, rubs or gallops. GI: Abdominal exam reveals normal bowel sounds to all quadrants. No organomegaly. No obvious palpable masses noted. No hepatomegally appreciated. Soft, non-tender to palpation. Extremity: Extremities are non-edematous and both femoral and pedal pulses are 2+ and equal bilaterally. Moves all extremities well, sensation in all extremities. Neuro: Lethargic, nonverbal, withdraws to noxious stimuli, Psych: Cooperative, calm, Skin: No lesions, rashes. No gross abnormalities noted. Back: Symmetrical, no obvious deformity, No CVA tenderness Course 2 Reevaluation(s): Reevaluation #1: Repeat evaluation demonstrates a awake alert and oriented x 4 patient who is conversing with her family at bedside she is in no acute distress her blood glucose has been rechecked several times and is currently 167. She is eating and sitting up in bed and in no acute distress. I did discuss the importance of monitoring her blood glucose levels as well as by mouth intake when she takes her insulin and she states it has been very difficult because she is diagnosed with alpha galactosidase 1 deficiency. I did advise her of her CT scan and laboratory findings and that we would discharge her home and both the patient and her family were agreeable to the plan of care. Time: 00:26 Vital Signs: Vital signs: Vital Signs Temperature 95.9 F L 11/11/23 23:00 Pulse Rate 37 L 11/12/23 00:00 Respiratory Rate 13 11/12/23 00:00 Blood Pressure 150/69 11/12/23 00:00 Pulse Oximetry 90 11/12/23 00:00 Oxygen Delivery Me thod Room Air 11/12/23 00:00 MDM - Recheck/Abnormal Lab/Rx Medical Decision Making Physical exam completed and documented given the patient's altered mental status I will obtain a CT scan of the head as she is on anticoagulation. I have provided D10 and we will also recheck her blood glucose level. Patient's heart rate is in the low 40s consistent with sinus bradycardia I suspect that is most likely secondary to her beta-anjelica use I have given her glucagon to ensure that she is not having beta-anjelica excess. I did obtain a CBC and CMP which are essentially unremarkable CT scan of the head was unremarkable for acute findings. Her blood glucose levels have continued to trend upward she is awake alert and oriented. Medical Records I reviewed the patient's medical records. Lab Data I reviewed the patient's lab results. 11/11/23 22:02 11/11/23 23:14 Radiology Impressions Chest X-Ray 11/11/23 22:23 IMPRESSION: Questionable left basilar infiltrate. However suspect this is artifact from overlying soft tissue Head CT 11/11/23 22:29 IMPRESSION: No acute intracranial findings. Laboratory Results WBC 7.92 10^3/uL (3.29-11.43) 11/11/23 22:02 RBC 4.67 10^6/uL (3.85-5.65) 11/11/23 22:02 Hgb 14.20 g/dL (11.27-16.99) 11/11/23 22: Hct 42.6 % (36-47) 11/11/23 22:02 MCV 91.2 fl (85-98) 11/11/23 22: MCH 30.4 pg (27-33) 11/11/23 22: MCHC 33.3 g/dL (30-55) 11/11/23 22:02 RDW 13.0 % (12.1-15.1) 11/11/23 22:02 Plt Count 169 10^3/cmm (157-399) 11/11/23 22:02 MPV 13.0 fL (7.4-10.4) H 11/11/23 22:02 Neut % (Auto) 48.7 % 11/11/23 22:02 Lymph % (Auto) 42.3 % 11/11/23 22:02 [place] % (Auto) 6.3 % 11/11/23 22:02 Eos % (Auto) 2.3 % 11/11/23 22:02 Baso % (Auto) 0.3 % 11/11/23 22:02 Neut # (Auto) 3.86 10^3/uL (1.8-7.7) 11/11/23 22: Lymph # (Auto) 3.4 10^3/uL (0.8-4.8) 11/11/23 22:02 [place] # (Auto) 0.5 10^3/uL (0.2-0.9) 11/11/23 22:02 Eos # (Auto) 0.2 10^3/uL (0.0-0.8) 11/11/23 22:02 Baso # (Auto) 0.0 10^3/uL (0.0-0.1) 11/11/23 22:02 Nucleated RBC % (auto) 0 % 11/11/23 22:02 Nucleated RBCs # 0.0 /100WBC 11/11/23 22:02 Sodium 138 mmol/L (136-145) 11/11/23 23:14 Potassium 3.7 mmol/L (3.5-5.1) 11/11/23 23:14 Chloride 102 mmol/L (98-107) 11/11/23 23:14 Carbon Dioxide 26 mmol/L (22-29) 11/11/23 23:14 Anion Gap 13.7 (5-19) 11/11/23 23:14 BUN 24 mg/dL (8-23) H 11/11/23 23:14 Creatinine 0.7 mg/dL (0.5-0.9) 11/11/23 23:14 GFR Calculation 83.0 mL/min (90-130) L 11/11/23 23:14 Glucose 150 mg/dL (65-115) H 11/11/23 23:14 POC Glucose 167 mg/dL (70-110) H 11/11/23 23:54 Calculated Osmolality 293 mOsm/kg (285-295) 11/11/23 23:14 Lactic Acid 1.6 mmol/L (0.5-2.2) 11/11/23 22:02 Calcium 9.3 mg/dL (8.5-10.5) 11/11/23 23:14 Total Bilirubin 0.4 mg/dL (0.15-1.2) 11/11/23 23:14 AST 25 U/L (0-32) 11/11/23 23:14 ALT 21 U/L (0-33) 11/11/23 23:14 Alkaline Phosphatase 62 U/L (35-105) 11/11/23 23:14 Troponin T Baseline 15 ng/L (0-10) H 11/11/23 22:02 Total Protein 7.0 g/dL (6.6-8.7) 11/11/23 23:14 Albumin 3.8 g/dL (3.5-5.2) 11/11/23 23:14 Globulin 3.2 g/dL (1.3-4.6) 11/11/23 23:14 Procalcitonin 0.05 ng/mL (0-0.5) 11/11/23 23:14 Urine Color Light yellow (Yellow) 11/11/23 23:29 Urine Appearance Clear (CLEAR) 11/11/23 23:29 Urine pH 8 (5-7) H 11/11/23 23:29 Ur Specific [place] 1.010 (1.005-1.030) 11/11/23 23:29 Urine Protein Neg (Negative) 11/11/23 23: Urine Glucose (UA) Norm (Normal) 11/11/23 23: Urine Ketones Negative (Negative) 11/11/23 23: Urine Blood Neg (Negative) 11/11/23 23: Urine Nitrate Negative (Negative) 11/11/23 23:29 Urine Bilirubin Neg (Negative) 11/11/23 23:29 Prot Sulfosalicylic Acd Negative (Negative) 11/11/23 23: Urine Urobilinogen Neg mg/dL (Negative) 11/11/23 23:29 Ur Leukocyte Esterase Negative (Negative) 11/11/23 23:29 All radiology interpretation(s) finalized by discharge EKG Data EKG 1: Interpretation: Twelve-lead EKG obtained at 9 reviewed at 0 demonstrates sinus bradycardia with a ventricular rate of 41 bpm, WI interval 187, QRS duration 85, QT 488, QTc [address] elevation or depression to demonstrate acute ischemia or infarction at present. Discharge Plan Discharge Patient Disposition: Home Clinical Impression: Acute alteration in mental status, Diabetes mellitus with hypoglycemia, Bradycardia, sinus Condition: Stable Prescriptions: No Action albuterol sulfate [ProAir HFA] 90 mcg/actuation HFA aerosol inhaler 2 puff INHALATION Q4H PRN (Reason: Shortness Of Breath) sotalol 80 mg tablet 80 mg PO BID Qty: 180 3RF Eliquis 5 mg tablet 5 mg PO BID Qty: 180 3RF (DME) diabetic shoes with 3 inserts See Rx Instructions .Route .MEDSUPPLY Qty: 1 0RF Rx Instructions: As directed pantoprazole 40 mg tablet,delayed release (DR/EC) 40 mg PO DAILY Emgality Syringe 120 mg/mL syringe 240 mg SUBCUT Q30D Qty: 1 11RF topiramate 100 mg tablet 100 mg PO DAILY Qty: 90 3RF Creon 36,000-114,000- 180,000 unit capsule,delayed release(DR/EC) 2 cap PO TID Qty: 180 3RF Rx Instructions: administer with meals and/or snacks Emgality Pen 120 mg/mL pen injector 120 mg SUBCUT ONCE Qty: 1 3RF amitriptyline 75 mg tablet 75 mg PO BEDTIME Aspir-81 81 mg Tablet,Delayed Release (Dr/Ec) 81 mg PO QAM gabapentin 300 mg capsule 300 mg PO BID olmesartan-hydrochlorothiazide 20-12.5 mg tablet 1 tab PO QAM Ozempic 0.25 mg or 0.5 mg (2 mg/3 mL) pen injector 0.25 mg SUBCUT Q7D Rx Instructions: on (pt states dced 06/24/23) isosorbide mononitrate 30 mg tablet extended release 24 hr 30 mg PO QAM amlodipine 5 mg tablet 5 mg PO QAM diclofenac sodium 1 % gel 2 g topical QID PRN (Reason: Pain) Rx Instructions: apply to affected area as needed Nitrostat 0.4 mg Tablet, Sublingual 0.4 mg SUBLINGUAL Q5M PRN (Reason: Chest Pain) Rx Instructions: do not exceed 3 doses per episode Novolog FlexPen U-100 Insulin 100 unit/mL (3 mL) insulin pen See Rx Instructions .ROUTE .COMPLEX Rx Instructions: sliding scale subcutaneously up to qid as directed as needed insulin degludec [Tresiba FlexTouch U-100] 100 unit/mL (3 mL) insulin pen 32 unit SUBCUT BEDTIME dicyclomine 20 mg tablet 20 mg PO QID PRN (Reason: abdominal pain) Qty: 20 0RF hydrocodone-acetaminophen 5-325 mg tablet 1 tab PO Q4H PRN (Reason: pain) Qty: 20 0RF Discharge Orders: Discharge ED (Routine); Ordered 11/12/23 Ordered By: Ruben Pedroza Referrals: Rafal Kwok MD [Primary Care Provider] - Discharge Diet: Usual diet Discharge Activity: Resume usual activity Patient Instructions: Opioid Safety, Pain Management Activity Restrictions/Additional Instructions: Activity Restrictions/Additional Instructions: Thank you for choosing [facility] for your healthcare needs today. Please realize that you were seen in the Emergency Department and that we are providing you with an emergency medical screening exam and this may not be a complete and all inclusive of all the testing and or medical work-up that you may need to determine your ailment or severity of your illness. It is very important that you follow-up as instructed with your Primary care provider or Specialist for additional evaluation and to discuss your medical treatment plan. Coding Level of Care Code ED Horse Race Timer for Tavo Gambino
[2023-11-12 00:56] VITALS: PULSE 44; RESP 18; O2SAT 92
== END 2023-11-12 00:59 | disposition home or self-care (01) ==
PROVIDERS: Emergency Provider Internal Medicine; PCP Family Medicine
DX: R41.82 Altered mental status, unspecified (principal); E11.649 Type 2 diabetes mellitus with hypoglycemia without coma; R00.1 Bradycardia, unspecified; Z79.01 Long term (current) use of anticoagulants; Z79.82 Long term (current) use of aspirin; Z79.4 Long term (current) use of insulin; Z87.891 Personal history of nicotine dependence; E78.5 Hyperlipidemia, unspecified
CPT/HCPCS: 36415; 36416; 70450; 71045; 80053; 81003; 82962; 83605; 84145; 84484; 85025; 87040; 93005; 96374; 96375; 99285; J1610; J2405; J7799

== ENCOUNTER → 2023-12-29 13:03 | Outpatient (BNVA) | payer MEDICARE, MEDICAID, SELFPAY | PROVIDERS: PCP Family Medicine; Visit Provider Internal Medicine | DX: G47.30 Sleep apnea, unspecified (principal); R07.9 Chest pain, unspecified; E78.5 Hyperlipidemia, unspecified; E11.9 Type 2 diabetes mellitus without complications; I65.29 Occlusion and stenosis of unspecified carotid artery; I48.91 Unspecified atrial fibrillation; Z87.891 Personal history of nicotine dependence; Z79.01 Long term (current) use of anticoagulants; Z79.4 Long term (current) use of insulin | CPT/HCPCS: 99214 ==

== ENCOUNTER 2024-01-12 08:32 | Outpatient (CLI) | payer MEDICARE, MEDICAID, SELFPAY ==
[2024-01-12 08:57] VITALS: BMI 38.5
--- NOTE | 2024-01-12 09:06 | NMCV_ITS ---
NM adam perf SPECT r/s* [id number] Alpa Barrera Age: 68 Gender: F : 1955 Exam Date: 01/12/2024 09:28 Ordering Phys: Yomi Cohn M.D ([email or web address]) Technologist: SHARI Nunn Exam Location: [facility] Indications: CHEST PAIN STRESS TEST [facility] IMAGE PROTOCOL Rest/Stress 1 Lexiscan Day Radiopharmaceutical Dose (mCi) Administration Site Administered by Rest: Tc-99m 11.0 IV SHARI Nunn Sestamibi Stress:Tc-99m 32.5 IV SHARI Mckoy Sestamibi Rest: 12-Jan-2024 60 Discovery 630 Stress: 12-Jan-2024 30 Discovery 630 0.4mg Lexiscan. Images obtained in supine and prone position. SPECT RESULTS Technical Quality: Excellent Raw Data Analysis: Normal Image Corrections: No attenuation or motion correction applied Summed Stress Score: 8 Summed Rest Score: 8 Summed Difference Score: 2 PERFUSION FINDINGS There is inconsistent area of reduced radiotracer uptake noted in apical, apical inferior, apical lateral lees. This improves on prone imaging and stress images. This is consistent most likely with attenuation artifarct vs small to medium sized area of prior infarct with small area of precious-infarct ischemia in these territories. FUNCTIONAL RESULTS (calculated via Gated SPECT) Stress Image LV EF (%): 71 Stress EDV (mL):103 TID: 1 Stress ESV (mL):30 FUNCTIONAL FINDINGS: There is normal left ventricular systolic function. IMPRESSIONS 1. Attenuation artifact vs small to medium sized area of prior infarct with small area of precious-infarct ischemia in the apical, apical lateral and apical inferior lees. Clinical correlation is required. 2. LV systolic function is normal. Yomi Cohn MD (Electronically Signed) Final Date: 15 Jan 2024 13:40 S
--- NOTE | 2024-01-12 09:06 | ECG_ITS ---
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 Interpretive Statements NAME OF STUDY: LEXISCAN SESTAMIBI STRESS TEST INDICATION: [Chest Pain] Procedure: At the baseline, the blood pressure was 152/78 mmHg with a heart rate of 57 bpm. The electrocardiogram showed sinus bradycardia, normal axis with normal ST and T's. The Lexiscan was infused over a period of 20 seconds. A total of 0.4 mg of Lexiscan was infused. The stress phase was continued for a total of 5 minutes. Heart rate was at the end of stress phase was 60 bpm and a blood pressure of 143/72 mmHg. The EKG at the peak infusion revealed normal sinus rhythm with no significant ST-T wave changes. Sestamibi was injected 20 seconds after the Lexiscan infusion. Conclusion: 1. Normal EKG response to Lexiscan infusion 2. No Lexiscan induced chest pain or cardiac arrhythmia. 3. Normal blood pressure and heart rate response. 4. Sestamibi/sestamibi perfusion scan pending; see separate report. Electronically Signed On 01-12-2024 10:56:34 CDT by Yomi Cohn M.D. [email or web address]
[2024-01-12] MEDS: regadenoson 0.4 Mg/5 ml Syringe 0.400000000000000022 MG IVP (10:35)
[2024-01-12 10:44] VITALS: BP 145/71; PULSE 64
== END 2024-01-12 08:33 | disposition home or self-care (01) ==
PROVIDERS: PCP Family Medicine; Visit Provider Internal Medicine
DX: R07.9 Chest pain, unspecified (principal)
CPT/HCPCS: 36415; 78452; 93017; 96374; A9500; J2785

== ENCOUNTER 2024-01-13 08:25 | Outpatient (CLI) | payer MEDICARE, MEDICAID, SELFPAY ==
--- NOTE | 2024-01-13 08:45 | USCV_ITS ---
Alpa Barrera Age: 68 Gender: F : 1955 Exam Date: 01/13/2024 08:35 Ordering Phys: Yomi Cohn M.D ([email or web address]) Technologist: CT Exam Location: [facility] [place] Indication: sob BP: / HR: Rhythm: Sinus Technical Quality: Adequate MEASUREMENTS (Male / Female) Normal Values FINDINGS Left Ventricle Left ventricle is normal size. LV systolic function is normal with EF 55 to 60%. No regional wall motion abnormalities are seen. Grade 1 diastolic dysfunction. Right Ventricle Normal in size and function Right Atrium Normal in size Left Atrium Normal in size Mitral Valve Structurally normal mitral valve. Trace mitral regurgitation. Aortic Valve Structurally normal aortic valve. No significant stenosis or regurgitation. Tricuspid Valve Insufficient TR jet to evaluate RVSP. Pulmonic Valve Not well visualized Pericardium Grossly normal Aorta Normal in size IVC Appears to be normal CONCLUSIONS LV systolic function is normal with EF of 55 to 60%. Grade 1 diastolic dysfunction Trace mitral regurgitation Yomi Cohn MD (Electronically Signed) Final Date: 25 January 2024 11:12 S
== END 2024-01-13 08:26 | disposition home or self-care (01) ==
LOC: RAD 08:25
PROVIDERS: PCP Family Medicine; Visit Provider Internal Medicine
DX: R06.02 Shortness of breath (principal); I50.30 Unspecified diastolic (congestive) heart failure
CPT/HCPCS: 93306

== ENCOUNTER → 2024-02-09 10:48 | Outpatient (BNVA) | payer MEDICARE, MEDICAID, SELFPAY | PROVIDERS: PCP Family Medicine; Visit Provider Podiatrist Foot & Ankle Surgery | DX: E11.8 Type 2 diabetes mellitus with unspecified complications (principal); E11.42 Type 2 diabetes mellitus with diabetic polyneuropathy; L84 Corns and callosities; L60.3 Nail dystrophy; M21.371 Foot drop, right foot; M21.372 Foot drop, left foot | CPT/HCPCS: 11056; 11721 ==

== ENCOUNTER → 2024-05-24 10:55 | Outpatient (BNVA) | payer MEDICARE, MEDICAID, SELFPAY | PROVIDERS: PCP Family Medicine; Visit Provider Podiatrist Foot & Ankle Surgery | DX: E11.42 Type 2 diabetes mellitus with diabetic polyneuropathy (principal); L84 Corns and callosities; L60.3 Nail dystrophy; M21.371 Foot drop, right foot; M21.372 Foot drop, left foot; Z79.4 Long term (current) use of insulin | CPT/HCPCS: 11056; 11721; 99213 ==

== ENCOUNTER → 2024-07-05 11:35 | Outpatient (BNVA) | payer MEDICARE, MEDICAID, SELFPAY | PROVIDERS: PCP Family Medicine; Visit Provider Nurse Practitioner Family | DX: I48.91 Unspecified atrial fibrillation (principal); Z79.01 Long term (current) use of anticoagulants; I48.0 Paroxysmal atrial fibrillation | CPT/HCPCS: 93005; 99214 ==

== ENCOUNTER → 2024-07-06 12:25 | Outpatient (BNVA) | payer MEDICARE, MEDICAID, SELFPAY | PROVIDERS: PCP Family Medicine; Visit Provider Specialist | DX: G43.711 Chronic migraine without aura, intractable, with status migrainosus (principal); G31.84 Mild cognitive impairment of uncertain or unknown etiology; Z71.89 Other specified counseling; R03.0 Elevated blood-pressure reading, without diagnosis of hypertension | CPT/HCPCS: 99213 ==

== ENCOUNTER 2024-07-13 10:47 | Outpatient (CLI) | payer MEDICARE, MEDICAID, SELFPAY ==
--- NOTE | 2024-07-13 11:04 | MM_ITS ---
WS: [id number] BILATERAL SCREENING DIGITAL TOMOSYNTHESIS MAMMOGRAM WITH CAD HISTORY: SCREENING COMPARISON: 08/01/2022, 10/06/2019 Bilateral CC and MLO views with tomosynthesis and synthetic mammography submitted. Computer aided det ection analyzed. Breast composition: There are scattered areas of fibroglandular density. No suspicious masses, microc alcifications or architectural distortion. Benign scattered calcifications within each breast. MM/MM scr BI tomosynthesis [id number] IMPRESSION: BI-RADS: 2 - Benign. FOLLOW UP: 1 Year Follow-up
== END 2024-07-13 10:48 | disposition home or self-care (01) ==
LOC: RAD 10:47
PROVIDERS: PCP Family Medicine; Visit Provider Family Medicine
DX: Z12.31 Encounter for screening mammogram for malignant neoplasm of breast (principal); R92.323 Mammographic fibroglandular density, bilateral breasts; R92.1 Mammographic calcification found on diagnostic imaging of breast
CPT/HCPCS: 77063; 77067

== ENCOUNTER → 2024-10-04 13:11 | Outpatient (BNVA) | payer MEDICARE, MEDICAID, SELFPAY | PROVIDERS: PCP Family Medicine; Visit Provider Podiatrist Foot & Ankle Surgery | DX: E11.42 Type 2 diabetes mellitus with diabetic polyneuropathy (principal); L84 Corns and callosities; E11.8 Type 2 diabetes mellitus with unspecified complications; L60.3 Nail dystrophy; M21.371 Foot drop, right foot; M21.372 Foot drop, left foot; M21.41 Flat foot [pes planus] (acquired), right foot; M21.42 Flat foot [pes planus] (acquired), left foot; Z79.4 Long term (current) use of insulin | CPT/HCPCS: 11056; 11721; 99213 ==

== ENCOUNTER 2024-10-28 08:00 | Outpatient (CLI) | payer MEDICARE, MEDICAID, SELFPAY ==
--- NOTE | 2024-10-28 08:01 | CT_ITS ---
WS: [id number] CT HEAD NONCONTRAST HISTORY: POSTCONCUSSION SYNDROME TECHNIQUE: Contiguous axial imaging performed through the brain. Bone and soft tissue windows. Sagittal and coronal reformats reviewed. All CT scans at [facility] use at least one of these dose optimization techniques: automated exposure control; mA and/or kV adjustment per patient size (includes targeted exams where dose is matched to clinical indication); or iterative reconstruction. DLP: 1059.08 mGy.cm COMPARISON: 11/11/2023 Mild atrophy and mild small vessel disease. No acute intracranial hemorrhage or edema. No extra-axial collections. Ventricles: Normal size with no hydrocephalus. No inferior displacement of the cerebellar tonsils. Paranasal sinuses: As visualized are clear. Mastoid air cells: Well pneumatized. Calvarium and scalp: Skull is intact with no soft tissue edema or swelling. In the LEFT sylvian fissure is a 10 mm low-attenuation round nodule. This has been present on prior studies but has increased in size. This may be a small lacunar infarct but due to its location at the sylvian fissure aneurysm should be considered. Prior imaging studies are reviewed with IV contrast and no aneurysm is identified. CT/CT head wo con* [id number] IMPRESSION: 1. No acute intracranial hemorrhage or edema. 2. No extra-axial fluid collections. 3. Mild age-appropriate atrophy and small vessel disease. 4. LEFT sylvian fissure low-attenuation well-circumscribed nodule. This nodule has become more prominent over prior MRI and CT examinations. May be related t o volume loss. Aneurysm needs to be excluded. Recommend follow-up [facility] CT angiogram.
== END 2024-10-28 08:01 | disposition home or self-care (01) ==
PROVIDERS: PCP Family Medicine; Visit Provider Family Medicine
DX: F07.81 Postconcussional syndrome (principal); G31.9 Degenerative disease of nervous system, unspecified; I67.89 Other cerebrovascular disease; R90.89 Other abnormal findings on diagnostic imaging of central nervous system
CPT/HCPCS: 70450

== ENCOUNTER 2024-11-22 12:41 | Emergency (ER) | payer MEDICARE, MEDICAID, SELFPAY ==
[2024-11-22 13:19] VITALS: BP 193/102; PULSE 81; RESP 16; TEMP 36.8; O2SAT 96; BMI 36.2
--- NOTE | 2024-11-22 13:37 | XRR_ITS ---
PROCEDURE INFORMATION: Exam: XR Left Hip Exam date and time: 11/22/2024 2:15 PM Age: 68 years old Clinical indication: Injury or trauma; Fall; Blunt trauma (contusions or hematomas); Left; Hip TECHNIQUE: Imaging protocol: Radiologic exam of the left hip. Views: 2 or 3 views hip with pelvis when performed. COMPARISON: CT abdomen pelvis wo con [id number] 11/22/2024 2:04 PM FINDINGS: Bones/joints: Unremarkable. No fracture, malalignment or deformity detected. No significant degenerative joint changes. Soft tissues: Unremarkable. XR/XR hip LT 2-3V wo/w pel* [id number] IMPRESSION: No acute bony abnomalities.
--- NOTE | 2024-11-22 13:37 | XRR_ITS ---
PROCEDURE INFORMATION: Exam: XR Left Knee Exam date and time: 11/22/2024 1:46 PM Age: 68 years old Clinical indication: Injury or trauma; Fall; Blunt trauma; Knee; Left TECHNIQUE: Imaging protocol: Radiologic exam of the left knee. Views: 3 views. COMPARISON: CR XR knee LT 3V* [id number] 09/06/2020 10:46 AM FINDINGS: Bones/joints: There are moderate degenerative changes involving the medial knee compartment with some joint space narrowing, subchondral sclerosis and mild marginal spurring. Remainder of the joint surfaces are better preserved. No fracture or malalignment. Soft tissue: No significant joint effusion. XR/XR knee LT 3V* [id number] IMPRESSION: Moderate degenerative changes medial knee compartment. No acute abnormalities.
--- NOTE | 2024-11-22 13:37 | XRR_ITS ---
PROCEDURE INFORMATION: Exam: XR Left Tibia and Fibula Exam date and time: 11/22/2024 1:43 PM Age: 68 years old Clinical indication: Injury or trauma; Fall; Blunt trauma; Lower leg; Left TECHNIQUE: Imaging protocol: Radiologic exam of the left tibia and fibula. Views: 2 views. COMPARISON: CR XR foot LT min 3V* [id number] 09/06/2020 10:38 AM FINDINGS: Bones/joints: Osseous structures are intact. No fracture or malalignment. Visualized joint surfaces are preserved. Soft tissues: Unremarkable. XR/XR tibia fibula LT 2V [id number] IMPRESSION: Negative exam. No acute bony abnormalities.
--- NOTE | 2024-11-22 13:37 | CT_ITS ---
WS: [id number] CT ABDOMEN AND PELVIS NONCONTRAST HISTORY: Abdominal pain, left-sided abdominal pain after fall. TECHNIQUE: Imaging performed through the abdomen and pelvis. Coronal and sagittal reformats are submitted. All CT scans at [facility] use at least one of these dose optimization techniques: automated exposure control; mA and/or kV adjustment per patient size (includes targeted exams where dose is matched to clinical indication); or iterative reconstruction. DLP: 889.90 mGy.cm COMPARISON: 06/24/2023 Lower thorax: Lung bases are clear. Visualized heart is normal. No hiatal hernia. Liver: Normal size liver. No mass or bile duct dilatation. Gallbladder: Prior cholecystectomy. Pancreas: Normal size and attenuation. Normal pancreatic duct. No pancreatitis or mass. Spleen: Normal spleen with granulomata. Adrenal glands: Normal. No mass. Right kidney: Cortical hypodensities cannot be characterized. No renal obstruction. Left kidney: No renal obstruction. Small extrarenal pelvis. Aorta: Mild atherosclerosis abdominal aorta with no aneurysm. No free fluid, intraperitoneal air or significant lymphadenopathy. GI tract: Normal noncontrast imaging of the stomach, small bowel and colon. No obstruction or wall thickening. Prior appendectomy. Abdominal wall: Negative. No hernia. Pelvis: Prior hysterectomy. Normally distended urinary bladder. Osseous structures: Unremarkable. No fractures. CT/CT abdomen pelvis wo con [id number] IMPRESSION: 1. No GI tract obstruction or colitis. 2. Cholecystectomy and appendectomy. 3. No renal obstruction. 4. No fractures.
--- NOTE | 2024-11-22 13:37 | CT_ITS ---
WS: [id number] CT HEAD NONCONTRAST HISTORY: fall TECHNIQUE: Contiguous axial imaging performed through the brain. Bone and soft tissue windows. Sagittal and coronal reformats reviewed. All CT scans at [facility] use at least one of these dose optimization techniques: automated exposure control; mA and/or kV adjustment per patient size (includes targeted exams where dose is matched to clinical indication); or iterative reconstruction. DLP: 1073.05 mGy.cm COMPARISON: 10/28/2024 No acute intracranial hemorrhage, midline shift or mass effect. Mild atrophy and small vessel disease. No acute infarcts. No change in the shape of the sylvian fissures. Mild small vessel disease. Ventricles: Normal size with no hydrocephalus. Paranasal sinuses: Small air-fluid level in the RIGHT maxillary sinus. Mastoid air cells: Well pneumatized. Calvarium and scalp: Skull is intact with no soft tissue edema or swelling. CT/CT head wo con* [id number] IMPRESSION: 1. No acute intracranial hemorrhage or edema. 2. Mild atrophy and small vessel disease. 3. Stable noncontrast head CT since 10/28/2024. 4. No fracture. 5. New small air-fluid level RIGHT maxillary sinus.
--- NOTE | 2024-11-22 13:47 | W.ED.FALL ---
HPI - Fall General: Chief Complaint: Fall Stated Complaint: L knee, hip, elbow pain, hit head, fall Time Seen by Provider: 11/22/24 13:37 History of Present Illness: 68-year-old female presents to the emergency room via left eye pain in her body particularly her shoulder knee and her hip. Patient has a history of previous stroke she wears a AFO for foot drop bilaterally. Patient a ground-level mechanical fall landed on her left side she did not strike her head she did not lose consciousness she recently had an implantable pacemaker placed and has some discomfort at the incision site from this. She has not had any shortness of breath or no vomiting since then no abdominal pain. Associated symptoms-after fall: Denies abdominal pain, chest pain or neck pain Related Data Home Medications ?Medication ?Instructions ?Recorded ?Confirmed insulin aspart U-100 100 unit/mL See Rx Instructions .Route .COMPLEX 06/24/23 11/22/24 (3 mL) subcutaneous pen (Novolog FlexPen U-100 Insulin aspart) insulin degludec 100 unit/mL (3 22 unit SUBCUT BEDTIME 06/24/23 11/22/24 mL) subcutaneous pen (Tresiba FlexTouch U-100 insulin) nitroglycerin 0.4 mg sublingual 0.4 mg sublingual Q5M PRN Chest 06/24/23 11/22/24 tablet (Nitrostat) Pain olmesartan 20 1 tab PO QAM 06/24/23 11/22/24 mg-hydrochlorothiazide 12.5 mg tablet pantoprazole 40 mg tablet,delayed 40 mg PO DAILY 07/06/23 11/22/24 release amitriptyline 75 mg tablet 75 mg PO DAILY 07/06/24 11/22/24 colestipol 1 gram tablet 1 g PO BID 11/22/24 11/22/24 folic acid 1 mg tablet 1 mg PO DAILY 11/22/24 11/22/24 sotalol 80 mg tablet 80 mg PO BID 11/22/24 11/22/24 topiramate 100 mg tablet 100 mg PO DAILY 11/22/24 11/22/24 Previous Rx's ?Medication ?Instructions ?Recorded amlodipine 10 mg tablet 10 mg PO DAILY #90 tabs 12/29/23 apixaban 5 mg tablet (Eliquis) 5 mg PO BID #180 tabs 12/29/23 galcanezumab-gnlm 120 mg/mL See Rx Instructions .Route 06/21/24 subcutaneous pen injector .COMPLEX #1 mL (Emgality Pen) hydrocodone 5 mg-acetaminophen 325 1 tab PO Q8H PRN pain #5 tabs 11/22/24 mg tablet Allergies Allergy/AdvReac Type Severity Reaction Status Date / Time Alpha-Gal Allergy Severe ALGY-Hives Verified 10/04/24 13:21 (Zaipszzji-Xjaef-1,3-Gala Penicillins Allergy Intermediate hives Verified 10/04/24 13:21 tramadol AdvReac possibly Verified 10/04/24 13:21 lowered seizure threshold Review of Systems Const: Denies: fever(s) or chills Card: Denies: chest pain Resp: Denies: dyspnea GI: Denies: abdominal pain : Denies: dysuria, urinary frequency or urinary urgency Musc: Denies: neck pain or back pain Skin/Breast: Denies: rash PFSH ED PFSH: Medical History Immunization counseling High risk medication use IDDM (insulin dependent diabetes mellitus) Seropositive rheumatoid arthritis of multiple sites Numbness and tingling of both feet Anticoagulation adequate with anticoagulant therapy Sleep apnea Conversion disorder Carotid stenosis Dyslipidemia Diabetes Atrial fibrillation Surgical History History of hysterectomy History of appendectomy History of cholecystectomy Family History Mother Diabetes Hypertension Father Diabetes CAD (coronary artery disease) Hypertension Sister Hypertension Diabetes Brother Diabetes Social History Smoking and tobacco/nicotine status: former use of tobacco/nicotine (quit 39+ years ago) Alcohol intake: former Substance/Drug Use: never Household members: spouse Marital status: Current occupational status: disabled Physical Exam Const: COMMON NORMALS: no acute distress GENERAL APPEARANCE: cooperative and comfortable ORIENTATION/CONSCIOUSNESS: Yes awake, Yes oriented to person, Yes oriented to place and Yes oriented to time HENMT: COMMON NORMALS: normocephalic, atraumatic and hearing grossly normal bilaterally HEAD & SCALP: normocephalic and atraumatic Resp: COMMON NORMALS: normal respiratory effort, No retractions, No use of accessory muscles and clear to auscultation bilaterally AUSCULTATION: clear to auscultation bilaterally Cardio: COMMON NORMALS: regular rate, regular rhythm and No murmurs present (Cardio) RATE: regular rate RHYTHM: regular rhythm GI: COMMON NORMALS: Soft to palpation and No hepatosplenomegaly present AUSCULTATION: Yes normoactive bowel sounds PALPATION: Yes Soft to palpation, No Tenderness to palpation present (GI), No Guarding due to palpation present (GI) and Yes No hepatosplenomegaly present Extremity: COMMON NORMALS: normal to inspection, capillary refill normal, no clubbing, cyanosis or edema, no calf tenderness and no pedal edema Neuro: SENSORIUM/ORIENTATION: Yes oriented to person, Yes oriented to place and Yes oriented to time Skin: COMMON NORMALS: no rashes or lesions noted GENERAL SKIN EXAM: no rashes or lesions noted Course Vital Signs: Vital signs: Vital Signs Temperature 98.3 F 11/22/24 13:19 Pulse Rate 60 11/22/24 13:52 Respiratory Rate 16 11/22/24 13:19 Blood Pressure 239/100 11/22/24 13:52 Pulse Oximetry 97 11/22/24 13:52 Oxygen Delivery Me thod Room Air 11/22/24 13:19 MDM - Fall Medical Decision Making Labs and imaging reviewed no acute fractures. Patient is ambulatory without difficulty. CT head negative neurologic exam intact will discharge patient home. Labs and imaging reviewed on the chart also reviewed with the patient. Follow-up with primary care return if has further problems. Lab Data Radiology Impressions Abdomen/Pelvis CT 11/22/24 13:37 IMPRESSION: 1. No GI tract obstruction or colitis. 2. Cholecystectomy and appendectomy. 3. No renal obstruction. 4. No fractures. Head CT 11/22/24 13:37 IMPRESSION: 1. No acute intracranial hemorrhage or edema. 2. Mild atrophy and small vessel disease. 3. Stable noncontrast head CT since 10/28/2024. 4. No fracture. 5. New small air-fluid level RIGHT maxillary sinus. Hip/Pelvis X-Ray 11/22/24 13:37 IMPRESSION: No acute bony abnomalities. Knee X-Ray 11/22/24 13:37 IMPRESSION: Moderate degenerative changes medial knee compartment. No acute abnormalities. Tibia/Fibula X-Ray 11/22/24 13:37 IMPRESSION: Negative exam. No acute bony abnormalities. All radiology interpretation(s) finalized by discharge Discharge Plan Discharge Patient Disposition: Home Clinical Impression: Fall, Acute pain of right hip, Acute pain of right knee Condition: Stable Prescriptions: New hydrocodone-acetaminophen 5-325 mg tablet 1 tab PO Q8H PRN (Reason: pain) Qty: 5 0RF No Action pantoprazole 40 mg tablet,delayed release (DR/EC) 40 mg PO DAILY amitriptyline 75 mg tablet 75 mg PO DAILY amlodipine 10 mg tablet 10 mg PO DAILY Qty: 90 3RF Eliquis 5 mg tablet 5 mg PO BID Qty: 180 3RF Emgality Pen 120 mg/mL pen injector See Rx Instructions .ROUTE .COMPLEX Qty: 1 6RF Dose Instruction: Inject 120mg subcutaneously ONCE monthly Rx Instructions: Inject 120mg subcutaneously ONCE monthly olmesartan-hydrochlorothiazide 20-12.5 mg tablet 1 tab PO QAM nitroglycerin [Nitrostat] 0.4 mg Tablet, Sublingual 0.4 mg SUBLINGUAL Q5M PRN (Reason: Chest Pain) Rx Instructions: do not exceed 3 doses per episode insulin aspart U-100 [Novolog FlexPen U-100 Insulin] 100 unit/mL (3 mL) insulin pen See Rx Instructions .ROUTE .COMPLEX Rx Instructions: sliding scale subcutaneously up to qid as directed as needed insulin degludec [Tresiba FlexTouch U-100] 100 unit/mL (3 mL) insulin pen 22 unit SUBCUT BEDTIME sotalol 80 mg tablet 80 mg PO BID Rx Instructions: TAKE 1 TABLET BY MOUTH TWICE DAILY topiramate 100 mg tablet 100 mg PO DAILY Rx Instructions: TAKE 1 TABLET BY MOUTH EVERY DAY folic acid 1 mg tablet 1 mg PO DAILY colestipol 1 gram tablet 1 g PO BID Discharge Orders: Discharge ED (Routine); Ordered 11/22/24 Ordered By: Rakesh Tobias Referrals: Rafal Kwok MD [Primary Care Provider] - Discharge Diet: Usual diet Discharge Activity: Increase activity as tolerated Patient Instructions: Opioid Safety, Pain Management Activity Restrictions/Additional Instructions: Thank you for choosing [facility] for your healthcare needs today. It is very important that you follow up as instructed or that you return to the Emergency Department should you have concerns or if your condition changes or worsens in any way. You were seen in the emergency room after a fall. X-rays and CT did not show any acute injury. You will likely be very sore for the next few days. Recommend use a cane or walker to prevent further falls. You can use the medication given for pain as needed. Follow-up with your primary care doctor as needed Print Language: Occitan Coding Level of Care Code ED Material Control Manager for Tavo Gambino
[2024-11-22 13:52] VITALS: BP 239/100; PULSE 60; O2SAT 97
--- NOTE | 2024-11-22 15:07 | ECG_ITS ---
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 Measurements Intervals [place] Rate: 60 P: 109 [place]: 175 QRS: 15 QRSD: 82 T: 42 QT: 430 QTc: 432 Interpretive Statements ELECTRONIC ATRIAL PACEMAKER POSSIBLE ANTERIOR MYOCARDIAL INFARCTION , PROBABLY OLD [30 ms Q WAVE IN V3/V4, OR R < 0.2 mV IN V4] Compared to ECG 07/05/2024 11:40:47 Sinus bradycardia no longer present Myocardial infarct finding still present Electronically Signed On 11-26-2024 18:27:28 CDT by Yomi Cohn M.D. [id number] [id number]
== END 2024-11-22 16:20 | disposition home or self-care (01) ==
PROVIDERS: Emergency Provider Family Medicine; PCP Family Medicine
DX: M25.562 Pain in left knee (principal); M25.552 Pain in left hip; M79.605 Pain in left leg; H57.12 Ocular pain, left eye; R10.9 Unspecified abdominal pain; Z79.01 Long term (current) use of anticoagulants; Z79.4 Long term (current) use of insulin; Z87.891 Personal history of nicotine dependence; E78.5 Hyperlipidemia, unspecified; E11.9 Type 2 diabetes mellitus without complications; W19.XXXA Unspecified fall, initial encounter; Z95.0 Presence of cardiac pacemaker
CPT/HCPCS: 70450; 73502; 73562; 73590; 74176; 93005; 99284

== ENCOUNTER 2024-11-24 09:16 | Outpatient (CLI) | payer MEDICARE, MEDICAID, SELFPAY ==
--- NOTE | 2024-11-24 09:30 | CT_ITS ---
WS: [id number] CT ANGIOGRAM CEREBRAL ARTERIES HISTORY: CEREBRAL ARTERY ANEURYSM TECHNIQUE: Pre and postcontrast imaging through the brain. CT angiogram is performed of the cerebral arteries. During arterial injection imaging is obtained from the skull vertex to the skull base in 1.25 mm imaging. Coronal and sagittal reformats are submitted. Additional multi planar reformats of the cerebral arteries are submitted, MIP imaging also reviewed. All CT scans at [facility] use at least one of these dose optimization techniques: automated exposure control; mA and/or kV adjustment per patient size (includes targeted exams where dose is matched to clinical indication); or iterative reconstruction. CONTRAST: Omnipaque 350; 100 mL IV. DLP: 1629.74 mGy.cm COMPARISON: CT head 11/22/2024, 10/28/[address] head: Mild atrophy and small vessel disease. No acute infarct or sulcal effacement. No edema or hemorrhage. Reidentified is prominence in the LEFT sylvian fissure. Intracranial vertebral arteries: Normal with no significant atherosclerosis. Basilar artery: No significant stenosis or occlusion. No aneurysm. Intracranial Internal carotid arteries: Moderate dense calcified plaque to the cavernous sinuses. No stenosis greater than 50%. No supraclinoid aneurysm. Middle cerebral arteries: No middle cerebral artery aneurysm. Anterior cerebral arteries and ACOM: Normal. Posterior cerebral arteries and PCOM's: Posterior cerebral arteries are normal. Mildly hypoplastic and small caliber posterior communicating arteries but they are both patent. Small caliber, hypoplastic LEFT transverse sinus and sigmoid sinus. No thrombus is identified. This is most consistent with a normal variant. Mastoid air cells: Clear. Paranasal sinuses: Air-fluid level in the RIGHT maxillary sinus. Calvarium: Normal. CT/CT angio head [id number] IMPRESSION: 1. No cerebral artery aneurysm identified. 2. Prominence in the LEFT sylvian fissure appears to be related to temporal lo be atrophy. 3. Moderate atherosclerotic plaque to the intracranial cavernous carotid arter ies. No stenosis greater than 50%.
[2024-11-24] MEDS: iohexol 350 mg/mL 500 mL Btl (per mL) IV (10:20)
== END 2024-11-24 09:17 | disposition home or self-care (01) ==
LOC: RAD 09:16
PROVIDERS: PCP Family Medicine; Visit Provider Family Medicine
DX: I67.1 Cerebral aneurysm, nonruptured (principal); R93.0 Abnormal findings on diagnostic imaging of skull and head, not elsewhere classified; I67.2 Cerebral atherosclerosis; G31.89 Other specified degenerative diseases of nervous system; I67.89 Other cerebrovascular disease; J32.0 Chronic maxillary sinusitis
CPT/HCPCS: 70496

== ENCOUNTER 2025-03-29 12:56 | Inpatient (IN) | payer MEDICARE, SELFPAY ==
[2025-03-29] VITALS (80 sets, daily range): BP systolic 126–211; BP diastolic 69–95; PULSE 0–118; RESP 12–32; TEMP 36.6–36.8; O2SAT 92–100
--- OUTSIDE RECORDS SUMMARY | 2025-03-29 13:07 | XMS_ITS | Encounter Summary ---
Author Organization [facility] Address [address] [place] [address] Care Team Providers Care Electronics Production Supervisor Name Role Phone Rafal Kwok MD Primary Care Provider [phone] Encounter Details Date Type Department Care Team (Late st Contact Info) Description 11/12/2009 Ancillary Orders [facility]- [place] [address] [place] [address] Sally Valverde MD [address] [facility] [address] [place] [address] PVCs (Premature Ventricular Contractions) Social History Tobacco Use Types Packs/Day Years Used Date Smoking Tobacco: Never Assessed Comments No Sex and Gender Information Value Date Recorded Sex Assigned at Not on file Legal 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 PRE-PROCEDURE DIAGNOSES: 1. Frequent premature ventricular contractions, highly symptomatic. 2. Moderate bradycardia. 3. Hypertension. 4. Hyperlipidemia. POST-PROCEDURE DIAGNOSES: 1. Frequent premature ventricular contractions, highly symptomatic. 2. Moderate bradycardia. 3. Hypertension. 4. Hyperlipidemia. 5. Status post radiofrequency ablation at the RV outflow tract area. Electrophysiology study showed normal electric conduction system. MATERIALS USED: 5, 6, 5 [place] sheaths to the left femoral vein for quadruple, octapolar and quadruple electrode catheter to electrically map HRA, HIS bundle and RV apex. 7 [place] sheath to the right internal jugular for the Orbitor electrode catheter to map coronary sinus. 7 [place] sheath to the right femoral vein, later on changed to SRO sheath for 4 millimeter Carto mapping / ablation catheter. PROCEDURES PERFORMED: 1. Comprehensive electrophysiology study. 2. 3D mapping of the RV outflow tract area. 3. Electric activation sequencing mapping and radiofrequency ablation of the RV outflow tract area. 4. Electrophysiology study with isoproterenol infusion attempting to induce supraventricular tachycardia or ventricular tachycardia. DESCRIPTION OF PROCEDURE: After informed consent was obtained, the patient was sent to the electrophysiology lab in the postabsorptive state. Bilateral groins and the right neck were prepped in the usual fashion with sterile technique. All catheters were placed under fluoro guidance so we could electrically map HRA, HIS bundle, RV apex and the coronary sinus areas. Baseline measurements as follows: QTC 417, NC 165, QRS 95, QT 430, AH 105, HV 40, cycle length 1,045 milliseconds. Atrial pacing 1:1 conduction until 340 milliseconds. We did see AV leidy dual physiology from 170 to 248 with pacing from 600/390 to 600/380. No echo beat or supraventricular tachycardia could be induced. Atrial ERP was 600/290 milliseconds. Ventricular pacing 1:1 conduction until 530 milliseconds. The patient had not much premature ventricular contractions at all throughout the study. Very rare premature ventricular contractions and infrequent premature ventricular contractions were seen. 3D mapping at the RV outflow tract area was done. The patient's premature ventricular contractions mapped to the anteroseptal area; however, without enough premature ventricular contractions, it is very difficult to precisely map to the activation, so we changed to the paced mapping system. We had almost 12 out of 12 at the anteroseptal area, so radiofrequency proceeded with 50 sosa and 60 degrees C between 25 to 30 seconds at one spot. Several spots were ablated around this area. Post ablation, we only rarely could see the premature ventricular contractions which may or may not be from the same spot. Again, the patient had very infrequent premature ventricular contractions. Post ablation, the patient's baseline was as follows: NC 156, QRS 104, QT 395, AH 100 milliseconds, HV 35 milliseconds, cycle length 722 milliseconds. Post ablation, atrial pacing demonstrated atrial ERP 600/300 milliseconds and ventricular pacing 1:1 conduction until 540 milliseconds. Again, we did not see much premature ventricular contractions at all. Isoproterenol 1 microgram per minute was then started to infuse. Post ablation isoproterenol atrial pacing demonstrated 1:1 conduction until 280 milliseconds. No supraventricular tachycardia could be induced. Atrial ERP was 600/310 milliseconds. Ventricular decremental pacing was 1:1 until 380 milliseconds. Ventricular ERP was 600/230 milliseconds. At the end of the procedure, the patient still had rare premature ventricular contractions which were similar to the RV outflow tract but not exactly the same. This could be due to the irritable ablation point or the original point, I am not sure, but the premature ventricular contractions are so infrequent it is very difficult to map. Throughout the procedure, the patient's hemodynamics and oxygenation were stable. She received a total of 5 milligrams Versed and 125 micrograms fentanyl. No complications noted. Minimal bleeding. Total fluoro time was 14.3 minutes. Total number of ablations was 12. Total time of ablation was 380 seconds. Final baseline on isoproterenol as follows: NC 160, QRS 78, QT 374, AH 80, HV 55, with cycle length of 900 at 5 milliseconds. FINAL SUMMARY: 1. RV outflow tract premature ventricular contractions likely in the anteroseptal area, status post radiofrequency ablation. 2. Normal electric conduction system. 3. Moderate sinus bradycardia. klb/ / D [id number] V [id number] Procedure Note Sally Valverde MD - 11/28/2009 DATE OF PROCEDURE: 11/27/2009 TITLE OF PROCEDURE: Electrophysiology study and radiofrequency ablationfor premature ventricular contraction. PRE-PROCEDURE DIAGNOSES: 1. Frequent premature ventricular contractions, highly symptomatic. 2. Moderate bradycardia. 3. Hypertension. 4. Hyperlipidemia. POST-PROCEDURE DIAGNOSES: 1. Frequent premature ventricular contractions, highly symptomatic. 2. Moderate bradycardia. 3. Hypertension. 4. Hyperlipidemia. 5. Status post radiofrequency ablation at the RV outflow tract area.Electrophysiology study showed normal electric conduction system. MATERIALS USED: 5, 6, 5 [place]and[place] sheaths to the left femoral vein forquadruple, octapolar and quadruple electrode catheter to electrically mapHRA, HIS bundle and RV apex. 7 [place]and[place] sheath to the right internal jugularfor the Orbitor electrode catheter to map coronary sinus. 7 [place] sheathto the right femoral vein, later on changed to SRO sheath for 4 millimeterCarto mapping / ablation catheter. PROCEDURES PERFORMED: 1. Comprehensive electrophysiology study. 2. 3D mapping of the RV outflow tract area. 3. Electric activation sequencing mapping and radiofrequency ablation ofthe RV outflow tract area. 4. Electrophysiology study with isoproterenol infusion attempting toinduce supraventricular tachycardia or ventricular tachycardia. DESCRIPTION OF PROCEDURE: After informed consent was obtained, thepatient was sent to the electrophysiology lab in the postabsorptive state.Bilateral groins and the right neck were prepped in the usual fashion withsterile technique. All catheters were placed under fluoro guidance so wecould electrically map HRA, HIS bundle, RV apex and the coronary sinusareas. Baseline measurements as follows: QTC 417, NC 165, QRS 95, QT 430,AH 105, HV 40, cycle length 1,045 milliseconds. Atrial pacing 1:1conduction until 340 milliseconds. We did see AV leidy dual physiologyfrom 170 to 248 with pacing from 600/390 to 600/380. No echo beat orsupraventricular tachycardia could be induced. Atrial ERP was 600/290milliseconds. Ventricular pacing 1:1 conduction until 530 milliseconds.The patient had not much premature ventricular contractions at allthroughout the study. Very rare premature ventricular contractions andinfrequent premature ventricular contractions were seen. 3D mapping at theRV outflow tract area was done. The patient's premature ventricularcontractions mapped to the anteroseptal area; however, without enoughpremature ventricular contractions, it is very difficult to precisely mapto the activation, so we changed to the paced mapping system. We hadalmost 12 out of 12 at the anteroseptal area, so radiofrequency proceededwith 50 sosa and 60 degrees C between 25 to 30 seconds at one spot.Several spots were ablated around this area. Post ablation, we only rarelycould see the premature ventricular contractions which may or may not befrom the same spot. Again, the patient had very infrequent prematureventricular contractions. Post ablation, the patient's baseline was asfollows: NC 156, QRS 104, QT 395, AH 100 milliseconds, HV 35 milliseconds,cycle length 722 milliseconds. Post ablation, atrial pacing demonstratedatrial ERP 600/300 milliseconds and ventricular pacing 1:1 conductionuntil 540 milliseconds. Again, we did not see much premature ventricularcontractions at all. Isoproterenol 1 microgram per minute was then startedto infuse. Post ablation isoproterenol atrial pacing demonstrated 1:1conduction until 280 milliseconds. No supraventricular tachycardia couldbe induced. Atrial ERP was 600/310 milliseconds. Ventricular decrementalpacing was 1:1 until 380 milliseconds. Ventricular ERP was 600/230milliseconds. At the end of the procedure, the patient still had rarepremature ventricular contractions which were similar to the RV outflowtract but not exactly the same. This could be due to the irritableablation point or the original point, I am not sure, but the prematureventricular contractions are so infrequent it is very difficult to map. Throughout the procedure, the patient's hemodynamics and oxygenation werestable. She received a total of 5 milligrams Versed and 125 microgramsfentanyl. No complications noted. Minimal bleeding. Total fluoro timewas 14.3 minutes. Total number of ablations was 12. Total time of ablationwas 380 seconds. Final baseline on isoproterenol as follows: NC 160, QRS78, QT 374, AH 80, HV 55, with cycle length of 900 at 5 milliseconds. FINAL SUMMARY: 1. RV outflow tract premature ventricular contractions likely in theanteroseptal area, status post radiofrequency ablation. 2. Normal electric conduction system. 3. Moderate sinus bradycardia. klb/ / D [id number] V [id number] Sally Valverde MD FLUOROSCOPY ORDERABLES Final Result documented in this encounter Visit Diagnoses Diagnosis PVCs (premature ventricular contractions) Other premature beats PVC's Other premature beats PVCs (premature ventricular contractions) Other premature beats documented in this encounter Care Teams Electronics Production Supervisor Relationship Specialty Start Date End Date Rafal Kwok MD [address] [address] PCP - General 11/27/09 documented as of this encounter
--- OUTSIDE RECORDS SUMMARY | 2025-03-29 13:07 | XMS_ITS | Clinical Summary ---
Author Organization [facility] Address [address] [place] [address] Phone Care Team Providers Care Political Science Professor Name Role Phone Rafal Kwok MD Primary Care Provider [phone] Allergies Active Allergy Reactions Criticality Noted Date Comments Alpha-Gal (Ebqfvktvm-Naobr-0,3-Galactose) Diarrhea,Itching Low 11/02/2024 Cromolyn Hives High 12/05/2024 Penicillins Other (See Comments) 11/12/2009 Semaglutide Abdominal Pain Low 10/15/2023 Tramadol Confusion,Muscle Pain Medium 03/06/2021 Medications insulin degludec (TRESIBA FLEXTOUCH U-100 SUBCUT) Inject by subcutaneous injection. 23 units hs Active insulin aspart (NovoLOG) 100 unit/mL injection Inject by subcutaneous injection. SS Active amLODIPine (NORVASC) 5 mg tablet Take 5 mg by mouth daily. afternoon Active olmesartan-hydr oCHLOROthiazide (BENICAR-HCT) 40-12.5 mg tablet Take 1 Tablet by mouth daily in the morning. Active amitriptyline (ELAVIL) 75 mg tablet Take 75 mg by mouth daily at bedtime. Active sotaloL (BETAPACE) 80 mg tablet Take 80 mg by mouth 2 times daily. Active apixaban (Eliquis) 5 mg tablet Take by mouth [address] Turner Active temazepam (RESTORIL) 15 mg capsule Take 15 mg by mouth daily at bedtime. Active desvenlafaxine (PRISTIQ) 100 mg Extended Release 24 hour tablet Take by mouth. Activ e prednisoLONE acetate (PRED FORTE) 1 % suspension Administer 1 Drop in both eyes 4 times daily. 10 mL 1 1 Active Emgality Syringe 120 mg/mL Syringe 3 Active HYDROcodone-barbara taminophen (NORCO) 5-325 mg tablet Take 1 Tablet by mouth every 4 hours as needed for Pain. 3 Active aspirin (ECOTRIN EC) 81 mg Tablet, Delayed Release (E.C.) Take 1 tablet every day by oral route. Active isosorbide mononitrate (IMDUR) 30 mg Extended Release 24 hour tablet Take 1 Tablet by mouth daily. Active nitroglycerin (NITROSTAT) 0.4 mg Tablet, Sublingual at the onset of chest pain 1 Active EPINEPHrine (EpiPen) 0.3 mg/0.3 mL Auto-InjectorIn dications:Aller gy to alpha-gal,Bile salt-induced diarrhea Inject 0.3 mL (0.3 mg) by intramuscular injection 1 time daily as needed for Anaphylaxis. 1 Each 4 Active folic acid (FOLVITE) 1 mg tablet Take 1 mg by mouth daily. Active alpha lipoic acid 600 mg Capsule capsule Take 600 mg by mouth daily. 4 Active cyanocobalamin/ folic acid (vitamin F37-rgxth acid) 1,000-400 mcg Lozenge dissolve 2 lozenges under the tongue once daily 4 Active topiramate (TOPAMAX) 50 mg tablet Take 50 mg by mouth daily. 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 1 Drop Right Eye ONE TIME ONLY 02/28/2021 Active Active Problems Problem Noted Date Diagnosed Date SSS (sick sinus syndrome) 10/25/2024 Chronic diarrhea 08/11/2023 PVC's 11/12/2009 Bradycardia 11/12/2009 Encounters Date Type Department Care Team Description 02/14/2025 External Device Data STL ABSTRACTION Provider, Abstract 02/13/2025 2:15 PM CDT Procedure visit [facility] [address] [place] [phone] Sally Valverde MD SSS (sick sinus syndrome) (CMS/HCC) (Primary Dx); Bradycardia; Paroxysmal atrial fibrillation ([facility]/HCC); Cardiac pacemaker in situ 01/20/[address] 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 [place] [phone] Gunjan Singleton PA-C C. DIFFICILE DETECTION, STOOL CULTURE W/SHIGA TOXIN, C. DIFFICILE DETECTION 12/27/2024 External Device Data STL ABSTRACTION Provider, Abstract from Last 3 Months Immunizations Immunization Administration Dates Next Due (ADACEL/BOOSTRIX)(10 YR UP) TDAP VACCINE, 0.5ML, IM 05/24/2017 (PNEUMOVAX 23)(50 YRS UP) PN EUMOCOCCAL POLYSACCHARIDE (PPV23) 0.5 ML, IM 06/28/2019 (SPIKEVAX) (12 YRS UP PRIMAR Y SERIES) COVID-19 VACCINE - MRNA-1273(PF) 100 MCG/0.5 ML IM SUSP 05/24/2021 INFLUENZA VACCINE QUADRIVALENT 6 MOS UP PF IM Influenza Seasonal Unspecified Formulation IM ,05/24/2017 Family History Medical History Relation Name Comments Heart Disease Father Heart Disease Mother Colon Cancer Neg Hx Relation Name Status Comments Father Mother Social History Tobacco Use Types Packs/Day Years Used Date Smoking Tobacco: Former Cigarettes Smokeless Tobacco: Never Tobacco Cessation:Counseling Given: Not Answered Alcohol Use Standard Drinks/Week Comments No 0 (1 standard drink = 0.6 oz pur e alcohol) Comments No Sex and Gender Information Value Date Recorded Sex Assigned at Not on file Legal Sex Female 11:35 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 Gender Identity Not on file Sexual Orientation Not on file Last Filed Vital Signs Vital Sign Reading Time Taken Comments Blood Pressure 158/92 12/05/2024 9:19 AM CDT Pulse 88 12/05/2024 9:19 AM CDT Temperature 36.1 C (97 F) 11/03/2024 5:01 PM CDT Respiratory Rate 20 11/03/2024 6:00 PM CDT Oxygen Saturation 93% 11/03/2024 6:00 PM CDT Inhaled Oxygen Concentration - - Weight 95.3 kg (210 lb) 12/05/2024 9:19 AM CDT Height 154.9 cm (5' 1 ) 12/05/2024 9:19 AM CDT Body Mass Index 39.68 12/05/2024 9:19 AM CDT Plan of Treatment Upcoming Encounters Date Type Department Care Team (Late st Contact Info) Description 05/16/2025 8:15 AM CDT Procedure visit [facility] [address] [place] [address] Sally Valverde MD [address] [place] [address] 06/06/2025 10:00 AM CDT Office Visit [facility] [place] [address] [place] [address] Gunjan Singleton PA-C [address] [place] [address] 06/30/2025 11:00 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 Office Visit [facility] [address] [place] [address] Sally Valverde MD [address] [place] [address] Sterling Ott CRNP [address] [place] [address] 06/30/2025 2:00 PM TILE GRADER Office Visit [facility] [address] [place] [address] 06/30/2025 2:15 PM TILE GRADER Office Visit [facility] [address] [place] [address] Waldo Singleton, OD [address] [place] [address] Health Maintenance Due Date Last Done Comments DIABETES ANNUAL FOOT EXAM 11/25/1971 DIABETES MICROALBUMIN ANNUAL SCREEN 11/25/1971 LDL CHOLESTEROL ANNUAL 11/25/1971 BREAST CANCER SCREENING 1993 FIT-DNA Q 3 years 1998 FIT/FOBT Q 1 year 1998 Flex Sig/CT Colonography Q 5 years 1998 ZOSTER VACCINE (1 of 2) 11/25/2003 RSV VACCINE (60+ or ) (1 - Risk 60-74 years 1-dose series) 2013 OSTEOPOROSIS SCREENING 2018 PNEUMOCOCCAL VACCINE 50+ YEA RS (2 of 2 - PCV) 06/28/2020 06/28/2019 COVID-19 Vaccine (4 - 2023-2 5 season) 2024 05/24/2021, 04/24/2021, 03/27/2021 INFLUENZA VACCINE (#1) 2025 , 06/28/2019, 05/24/2017 DIABETES HBA1C Q 6 MONTHS 04/19/2025 10/20/2024, 08/2023 DIABETES ANNUAL RETINAL EXAM 06/29/202501/2024, 06/29/2024, 06/29/2024, Additional history exists DTAP/TDAP/TD VACCINES (2 - T d or Tdap) 05/24/2027 05/24/2017 COLORECTAL SCREENING 02/10/2034 02/11/2024, 02/11/2024, 02/11/2024 Colorectal Cancer Screening 02/10/2034 Medical Devices Implanted Type Area Human Performance Professor Device Identifier Shelf Expiration Date Model / Serial / Lot Lens Io Tecnis 1pc 25.0 [id number] - [id number] Implanted:Qty: 1 on 02/21/2021 by Samir Turner MD at [facility] Left: Eye [employer] 10/28/2024 [id number] / [id number] / N/A Lens Iol Tecnis Eyhance 24.5 [id number] - [id number] Implanted:Qty: 1 on 03/07/2021 by Samir Turner MD at [facility] Right: Eye [employer] 12/31/2023 [id number] / [id number] / Lead Capsurefix Novus Mri 52cm Endocardial Pacing 5076-52 - [id number] Implanted:Qty: 1 on 11/03/2024 by Sally Valverde MD at [facility] Lead Left: Chest Wall [employer] - BULK BUY [id number] 08/10/2026 5076-52 / [id number] 6V / Lead Capsurefix Novus Mri 58cm Endocardial Pacing 5077 5076-58 - [id number] Implanted:Qty: 1 on 11/03/2024 by Sally Valverde MD at [facility] Lead Left: Chest Wall [employer] - BULK BUY [id number] 07/28/2026 5076-58 / [id number] 2V / Pacemaker [place] Xt Dr Mri Ipg Dual Chmbr Surescan [id number] - [id number] Implanted:Qty: 1 on 11/03/2024 by Sally Valverde MD at [facility] Pacemaker Left: Chest Wall [employer]- CRM - BULK BUY [id number] 03/06/2026 [id number] / [id number] 2G / Procedures Procedure Name Priority Date/Time Associated Diagnosis Comments MS PROGRAM EVAL IMPLANTABLE IN PERSN DUAL LD PACER Routine 02/13/2025 2:18 PM CDT SSS (sick sinus syndrome) (CMS/HCC) Bradycardia Paroxysmal atrial fibrillation (CMS/HCC) Cardiac pacemaker in situ HEMOGLOBIN A1C Routine 02/22/2024 3:08 PM CDT COLONOSCOPY REPORT 02/11/2024 11 :42 AM CDT from Last 3 Months or Most Recently Relevant to Health Maintenance Results * MS PROGRAM EVAL IMPLANTABLE IN PERSN DUAL LD PACER (02/13/2025 2:18 PM CDT) 02/13/2025 2:18 PM CDT Narrative INTERFACE SYSTEM - 02/13/2025 4:04 PM CDT Office Device Check Report Date of Procedure: February 13, 2025 Events: Atrial: 0 (0.1%) Ventricular: 6 NSVT episodes, longest 2 seconds, fastest rate 192 BPM. 1 Fast AV episode, 5 seconds, 194 BPM, noted as SVT Other Episodes: Patient noted fall on 02-12-2025 @ approx 0100 am. Patient unsure if fall was trip and fall (mechanical) or syncopal. Pain at device site/left shoulder 3/0-10 since fall. CXR ordered and patient will obtain locally, tormorrow. Changes: Decreased RA pacing output to adaptive, 2.5 V @ 0.4m and RV pacing output to adaptive 3.0 V @ 0.4ms. Comments: Patient presents to Cardiac Device Office today for 3 month follow up device/ wound check. left upper quadrant chest incision noted intact and well approximated. Area noted well healed per Dr. Valverde's protocol. Suture line intact without redness, swelling, or drainage. Patient denies fever or chills. Normal dual chamber pacemaker function with stable thresholds and impedances. Battery reserve is 11.7 years. Presenting - Atrial Pacing, with Capture and Ventricular Sensing, intact AV conduction noted. Occasional PACs noted. Underlying - sinus rhythm. Instructed patient re: incision care, arm restrictions and recommended follow up. Patient verbalized understanding of all instructions. Follow-up EP Provider and Device check 06-30-2025, in clinic. [facility] remote transmission form home 3 month. See attached report for details. Procedure Note Provider, Historical - 02/13/2025 Office Device Check Report Date of Procedure: February 13, 2025 Events: Atrial: 0 (0.1%) Ventricular: 6 NSVT episodes, longest 2 seconds, fastest rate 192 BPM. 1 Fast AV episode, 5 seconds, 194 BPM, noted as SVT Other Episodes: Patient noted fall on 02-12-2025 @ approx 0100 am. Patientunsure if fall was trip and fall (mechanical) or syncopal. Pain at devicesite/left shoulder 3/0-10 since fall. CXR ordered and patient will obtainlocally, tormorrow. Changes: Decreased RA pacing output to adaptive, 2.5 V @ 0.4m and RVpacing output to adaptive 3.0 V @ 0.4ms. Comments: Patient presents to Cardiac Device Office today for 3 month follow updevice/ wound check. left upper quadrant chest incision noted intact andwell approximated. Area noted well healed per Dr. Valverde's protocol.Suture line intact without redness, swelling, or drainage. Patient denies fever or chills. Normal dual chamber pacemaker function with stable thresholds andimpedances. Battery reserve is 11.7 years. Presenting - Atrial Pacing, with Capture and Ventricular Sensing, intactAV conduction noted. Occasional PACs noted. Underlying - sinus rhythm. Instructed patient re: incision care, arm restrictions and recommendedfollow up. Patient verbalized understanding of all instructions. Follow-up EP Provider and Device check 06-30-2025, in clinic. [facility]linkremote transmission form home 3 month. See attached report for details. us Sally Valverde MD CARDIAC SERVICES ORDERABLES E dited Result - Final INTERFACE SYSTEM Refer to clinic/hospital department * (ABNORMAL) HEMOGLOBIN A1C (02/22/2024 3:08 PM CDT) ABSTRACTED HGB A1C 6.2 % [facility] Blood us Abstract Provider CHEMISTRY ORDERABLES Edited Re sult - Final [facility] * COLONOSCOPY REPORT (02/11/2024 11:42 AM CDT) Narrative Procedure Note Darin Seymour MD - 02/11/2024 11:42 AM CDT [facility] Patient Name: Alpa Barrera Procedure Date: 02/11/2024 Date of : 1955 Admit Type: Outpatient Age: 68 Attending MD: Darin Seymour MD, Procedure: Colonoscopy Indications: Diarrhea Providers: Darin Seymour MD Referring MD: Medicines: Monitored Anesthesia Care Complications: No immediate complications. Estimated blood loss: Minimal. Procedure: Pre-Anesthesia Assessment: - [place] Protocol: - Pre-procedure Verification: Prior to the procedure, the patient's identity was verified by full name and date of . The patient's identity was verified on all pertinent medical records, including History and Physical. Also prior to the procedure, a History and Physical was performed, and patient medications, allergies and sensitivities were reviewed. The patient's tolerance of previous anesthesia was reviewed. The patient is competent. The risks and benefits of the procedure and the sedation options and risks were discussed with the patient. All questions were answered and informed consent was obtained. - Marking: The endoscopic procedure was visually marked on a patient wrist band delineating the patient name, proposed procedure and endoscopist's initials. - Time-Out: Prior to the start of the procedure, the patient's identification, proposed procedure, accurate signed consent, correctly labeled images and records, and need for prophylactic antibiotics were verified by the physician, the nurse, the statement clerks manager and the prototype technician in the endoscopy suite. - Prior to the procedure, a History and Physical was performed, and patient medications, allergies and sensitivities were reviewed. The patient's tolerance of previous anesthesia was reviewed. - The risks and benefits of the procedure and the sedation options and risks were discussed with the patient. All questions were answered and informed consent was obtained. - ASA Grade Assessment: III - A patient with severe systemic disease. After I obtained informed consent, the scope was passed under direct vision. Throughout the procedure, the patient's blood pressure, pulse, and oxygen saturations were monitored continuously. The Colonoscope was introduced through the anus and advanced to the cecum, identified by appendiceal orifice and ileocecal valve. The colonoscopy was performed without difficulty. The patient tolerated the procedure well. The quality of the bowel preparation was good. The ileocecal valve, appendiceal orifice, and rectum were photographed. Estimated Blood Loss: Estimated blood loss was minimal. Findings: The perianal and digital rectal examinations were normal. Non-bleeding internal hemorrhoids were found during retroflexion. Biopsies for histology were taken with a cold forceps from the entire colon for evaluation of microscopic colitis. Verification of patient identification for the specimen was done. Estimated blood loss was minimal. Impression: - Non-bleeding internal hemorrhoids. - Biopsies were taken with a cold forceps from the entire colon for evaluation of microscopic colitis. Recommendation: - Discharge patient to home. - Patient has a contact number available for emergencies. The signs and symptoms of potential delayed complications were discussed with the patient. Return to normal activities tomorrow. Written discharge instructions were provided to the patient. - Resume previous diet. - Continue present medications. - Await pathology results. - Repeat colonoscopy for surveillance based on pathology results. - Return to GI clinic as previously scheduled. - Return to primary care physician after studies are complete. - Resume DOAC tomorrow per managing provider Darin Seymour MD 02/11/2024 11:30:59 AM This report has been signed electronically. Number of Addenda: 0 Note Initiated On: 02/11/2024 10:53 AM Scope Withdrawal Time 0 hours 6 minutes 48 seconds Scope In: 11:06:58 AM Scope Out: 11:26:57 AM [address] [place], [place] Darin Seymour MD GI PROCEDURE ORDERABLES Shauna nurys Result from Last 3 Months or Most Recently Relevant to Health Maintenance Insurance MEDICAID [place] [facility] Advance Directives For more information, please contact: [phone] * Full Code (Latest Code Status on File) Date Activated Date Inactivated Comments 11/03/2024 5:23 PM 11/03/2024 9:10 PM * Full Code Date Activated Date Inactivated Comments 11/03/2024 10:48 AM 11/03/2024 5:23 PM * Full Code Date Activated Date Inactivated Comments 06/10/2024 9:06 AM 06/10/2024 12:37 PM * Full Code Date Activated Date Inactivated Comments 02/11/2024 10:13 AM 02/11/2024 2:17 PM * Full Code Date Activated Date Inactivated Comments 03/07/2021 11:35 AM 03/07/2021 3:48 PM Care Teams Political Science Professor Relationship Specialty Start Date End Date Rafal Kwok MD [address] [facility] [place] [id number] PCP - General 12/05/20
--- OUTSIDE RECORDS SUMMARY | 2025-03-29 13:07 | XMS_ITS ---
Author Organization Unknown Medications Date Medication Dosage DosageUnit StartDate StopDate StopReason Active DoseQuantity DoseUnit Dispense DispenseUnit Refills NdcCode DrugCode PharmacyId IsPrescription MappedMedication Srcstatus Custom 2023 12:00 :00 AM contour test strips 300.000 000 1 300.32841 0 3 [id number] P ACTIVE 2024 12:00 :00 AM olmesartan 20 mg-hydrochl orothiazide 12.5 mg tablet 30.0000 00 09/14/2024 12:00:00 AM 1 30.081131 0 355508 36 615 [id number] [facility] P ACTIVE 07/17 12:00 :00 AM topiramate 50 mg tablet 30.0000 00 1 30.210316 1 [id number] P ACTIVE 2024 12:00 :00 AM true metrix glucose test strip 100.000 000 10/13/2024 12:00:00 AM 1 100.99909 0 2 [id number] [phone] [facility] P ACTIVE 2024 12:00 :00 AM sotalol 80 mg tablet 180.000 000 10/14/2024 12:00:00 AM 1 180.51832 0 0 [id number] 151 [id number] [facility] M ACTIVE 2023 12:00 :00 AM cyanocobala min (vit b-12) 1,000 mcg/ml injection solution 1 0 [id number] P ACTI VE 2024 12:00 :00 AM topiramate 100 mg tablet 90.0000 00 09/17/2024 12:00:00 AM 10/20/2024 12:00:00 AM 0 90.801138 2 [id number] 705 [id number] [facility] P HISTORICAL 2024 12:00 :00 AM emgality pen 120 mg/ml subcutaneou s pen injector 1.58804 0 10/06/2024 12:00:00 AM 1 1.377091 3 [id number] 3 805 [id number] [facility] P ACTIVE 2024 12:00 :00 AM amlodipine 10 mg tablet 90.0000 00 09/23/2024 12:00:00 AM 1 90.427393 0 [id number] 16 810 [id number] [facility] P ACTIVE 2023 12:00 :00 AM topiramate 50 mg tablet 30.0000 00 06/22/2024 12:00:00 AM 1 30.036437 0 917235 11 605 [id number] [facility] P ACTIVE 2023 12:00 :00 AM vitamin b12 1,000 mcg-folic acid 400 mcg sublingual lozenge 180.000 000 1 180.17187 0 3 [id number] P ACTIVE 2024 12:00 :00 AM eliquis 5 mg tablet 180.000 000 09/23/2024 12:00:00 AM 1 180.46385 0 0 [id number] 882 [id number] [facility] P ACTIVE 2024 12:00 :00 AM tresiba flextouch u-200 insulin 200 unit/ml (3 ml) subcutaneou s pen 9.76812 0 08/12/2024 12:00:00 AM 1 9.910682 1 9701758 5 403 [id number] [facility] P ACTIVE 2024 12:00 :00 AM folic acid 1 mg tablet 90.0000 00 09/05/2024 12:00:00 AM 1 90.688081 2 [id number] 18 201 [id number] [facility] P ACTIVE 2023 12:00 :00 AM alpha lipoic acid 600 mg capsule 90.0000 00 1 90.182556 3 [id number] P ACTIVE 2023 12:00 :00 AM tresiba flextouch u-200 insulin 200 unit/ml (3 ml) subcutaneou s pen 15.0000 00 1 15.882500 1 [id number] P ACTIVE 2023 12:00 :00 AM amlodipine 5 mg tablet 90.0000 00 1 90.132335 1 [id number] P ACTIVE 06/12 12:00 :00 AM cromolyn 100 mg/5 ml oral concentrate 480.000 000 06/06/2024 12:00:00 AM 06/30/2024 12:00:00 AM 0 480.95576 0 5 [id number] 096 [id number] [facility] P HISTORICAL 2024 12:00 :00 AM colestipol 1 gram tablet 60.0000 00 09/14/2024 12:00:00 AM 1 60.403004 3 [id number] 21 282 [id number] [facility] P ACTIVE 2024 12:00 :00 AM olmesartan 20 mg-hydrochl orothiazide 12.5 mg tablet 90.0000 00 1 90.740696 1 [id number] P ACTIVE
--- OUTSIDE RECORDS SUMMARY | 2025-03-29 13:07 | XMS_ITS | Encounter Summary ---
Author Organization [facility] Address [address] [place] [address] Care Team Providers Care Loss Prevention Officer Name Role Phone Rafal Kwok MD Primary Care Provider [phone] Encounter Details Date Type Department Care Team (Latest Contact Info) Description 07/07/2001 Outpatient Historical [facility] BryceaMrk MD [address] [address] MASTODYNIA (Primary Dx) Social History Tobacco Use Types Packs/Day Years Used Date Smoking Tobacco: Never Assessed Comments Unknown Sex and Gender Information Value Date Recorded Sex Assigned at Not on file Legal Sex Female 2:59 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
--- OUTSIDE RECORDS SUMMARY | 2025-03-29 13:07 | XMS_ITS | Encounter Summary ---
Author Organization [facility] Address [address] [place] [address] Care Team Providers Care Insemination Worker Name Role Phone Rafal Kwok MD Primary Care Provider [phone] Encounter Details Date Type Department Care Team (Latest Contact Info) Description 09/23/2001 Outpatient Historical [facility] Kevin Mabry MD [address] [place] [address] Sprain thoracic region (Primary Dx) Social History Tobacco Use Types Packs/Day Years Used Date Smoking Tobacco: Never Assessed Comments Unknown Sex and Gender Information Value Date Recorded Sex Assigned at Not on file 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
--- OUTSIDE RECORDS SUMMARY | 2025-03-29 13:07 | XMS_ITS | Encounter Summary ---
Author Organization [facility] Address [address] [place] [address] Care Team Providers Care Woodwind Reeds Cutter Name Role Phone Rafal Kwok MD Primary Care Provider [phone] Encounter Details Date Type Department Care Team (Latest Contact Info) Description 04/22/1999 Outpatient Historical HIS [facility] Kevin Mabry MD [address] [place] [address] Nonallopathic lesion of abdomen and other sites, not elsewhere classified (Primary Dx) Social History Tobacco Use Types Packs/Day Years Used Date Smoking Tobacco: Never Assessed Comments Unknown Sex and Gender Information Value Date Recorded Sex Assigned at Not on file 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
--- OUTSIDE RECORDS SUMMARY | 2025-03-29 13:07 | XMS_ITS | Encounter Summary ---
Author Organization [facility] Address [address] [place] [address] Care Team Providers Care Direct Of Real Estate Name Role Phone Rafal Kwok MD Primary Care Provider [phone] Encounter Details Date Type Department Care Team (Late st Contact Info) Description 12/25/1998 Outpatient Historical HIS [facility] Wendy Mederos MD [address] [place] [address] Hypertrophy of breast (Primary Dx) Social History Tobacco Use Types Packs/Day Years Used Date Smoking Tobacco: Never Assessed Comments Unknown Sex and Gender Information Value Date Recorded Sex Assigned at Not on file 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
--- OUTSIDE RECORDS SUMMARY | 2025-03-29 13:07 | XMS_ITS | Encounter Summary ---
Author Organization [facility] Address [address] [place] [address] Care Team Providers Care Freezer Operator Name Role Phone Rafal Kwok MD Primary Care Provider [phone] Encounter Details Date Type Department Care Team (Latest Contact Info) Description 06/11/2001 Outpatient Historical HIS [facility] Kevin Mabry MD [address] [place] [address] Mastodynia (Primary Dx); Other specified disorder of breast Social History Tobacco Use Types Packs/Day Years Used Date Smoking Tobacco: Never Assessed Comments Unknown Sex and Gender Information Value Date Recorded Sex Assigned at Not on file 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
--- OUTSIDE RECORDS SUMMARY | 2025-03-29 13:07 | XMS_ITS | Clinical Summary ---
Author Organization [facility] Address [address] [place] [address] Phone Care Team Providers Care Oven Equipment Repairer Name Role Phone Rafal Kwok MD Primary Care Provider [phone] Allergies Active Allergy Reactions Criticality Noted Date Comments Penicillins Other (See Comments) 11/12/2009 Medications gabapentin (NEURONTIN) 300 mg Oral capsule Take 3 Caps by mouth 3 times daily. Active amlodipine (NORVASC) 10 mg Oral tablet Take 10 mg by mouth daily. Active ropinirole (REQUIP) 0.5 mg Oral tablet Take 0.5 mg by mouth daily. Active hydrochlorothia zide (HYDRODIURIL) 12.5 mg Oral tablet Take 12.5 mg by mouth daily. Active aspirin (TIMOTHY) 81 mg Oral Tab Take by mouth daily. Active FLUoxetine (PROZAC) 20 mg Oral tablet Take 20 mg by mouth daily. Active temazepam (RESTORIL) 15 mg Oral capsule Take 15 mg by mouth daily at bedtime. Active desvenlafaxine SR 24 hour (PRISTIQ) 100 mg Oral Tb24 Take by mouth daily with breakfast. Active OTHER PREDNISOLONE 1%/ GATIFLOXACIN 0.5%/ BROMFENAC 0.07%. 1 drop to operative eye(s) 3 times daily for 24 days. 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 Gender Identity Not on file Sexual Orientation Not on file Last Filed Vital Signs Vital Sign Reading Time Taken Comments Blood Pressure 130/78 03/08/2012 1:46 PM CDT Pulse 67 03/08/2012 1:46 PM CDT Temperature 36.3 C (97.3 F) 11/28/2009 4:20 AM CDT Respiratory Rate 20 11/28/2009 4:20 AM CDT Oxygen Saturation 94% 11/28/2009 4:20 AM CDT Inhaled Oxygen Concentration - - Weight 109.3 kg (241 lb) 03/08/2012 1:46 PM CDT Height 154.9 cm (5' 1 ) 03/08/2012 1:46 PM CDT Body Mass Index 45.54 03/08/2012 1:46 PM CDT Plan of Treatment Health Maintenance Due Date Last Done Comments DTAP/TDAP/TD VACCINES (1 - Tdap) 1972 BREAST CANCER SCREENING 1993 COLORECTAL SCREENING 1998 Colorectal Cancer Screening 1998 FIT-DNA Q 3 years 1998 FIT/FOBT Q 1 year 1998 Flex Sig/CT Colonography Q 5 years 1998 PNEUMOCOCCAL VACCINE 50+ YEARS (1 of 1 - PCV) 11/25/19 04 ZOSTER VACCINE (1 of 2) 11/25/2003 OSTEOPOROSIS SCREENING 2018 INFLUENZA VACCINE (#1) 2025 RSV VACCINE (60+ or ) (1 - 1-dose 75+ series) 2028 Insurance MEDICAID [place] [facility] [id number] HMO Advance Directives For more information, please contact: [phone] * Full Code (Latest Code Status on File) Date Activated Date Inactivated Comments 11/27/2009 5:08 PM 11/28/2009 2:04 PM * Full Code Date Activated Date Inactivated Comments 11/27/2009 11:02 AM 11/27/2009 5:08 PM Care Teams Oven Equipment Repairer Relationship Specialty Start Date End Date Rafal Kwok MD [address] [place] [phone] PCP - General 11/27/09
--- OUTSIDE RECORDS SUMMARY | 2025-03-29 13:07 | XMS_ITS | Encounter Summary ---
Author Organization [facility] Address [address] [place] [address] Care Team Providers Care Pre Sales Architect Name Role Phone Rafal Kwok MD Primary Care Provider [phone] Encounter Details Date Type Department Care Team (Late st Contact Info) Description 04/19/2008 Outpatient Historical HIS [facility], Physician NO ADDRESS ON FILE Manisha Nino MD [address] [place] [address] Jett Hinson MD NO ADDRESS ON FILE Sukhdev Poe, DO [address] [place] [phone] Leonel Niño MD NO ADDRESS ON FILE Hemiplegia Affecting Side NOS (CMS/HCC); Unspecified Essential Hypertension; Other and Unspecified Hyperlipidemia; Pure Hypercholesterolemia; Anxiety State, Unspecified; Depressive Disorder, not Elsewhere Classified; Obesity, Unspecified Social History Tobacco Use Types Packs/Day Years Used Date Smoking Tobacco: Never Assessed Comments Unknown Sex and Gender Information Value Date Recorded Sex Assigned at Not on file 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 Gender Identity Not on file Sexual Orientation Not on file documented as of this encounter Plan of Treatment Not on file documented as of this encounter Procedures Procedure Name Priority Date/Time Associated Diagnosis Comments TSH Routine 04/20/2008 2:56 AM CDT MAGNESIUM LEVEL Routine 04/20/2008 2:56 AM CDT BASIC METABOLIC PANEL Routine 04/20/2008 2:56 AM CDT documented in this encounter Results * MAGNESIUM LEVEL (04/20/2008 2:56 AM CDT) MAGNESIUM 2.1 1.7 - 2.4 mg/dL [facility] Blood specimen (specimen) 04/20/2008 2:56 AM CDT 04/20/2008 3:23 AM CDT Jett Hinsno MD CHEMISTRY ORDERABLES Final Result Performing Organization Address [facility] Phone Number INTERFACE SYSTEM Refer to clinic/hospital department [facility] CLIA# [id number] [address] [place] [address] * TSH (04/20/2008 2:56 AM CDT) TSH 1.489 0.350 - 5.500 uIU/ml [facility] Blood specimen (specimen) 04/20/2008 2:56 AM CDT 04/20/2008 3:23 AM CDT Jett Hinson MD CHEMISTRY ORDERABLES Final Result Performing Organization Address [facility] Phone Number INTERFACE SYSTEM Refer to clinic/hospital department [facility] CLIA# [id number] [address] [place] [address] * BASIC METABOLIC PANEL (04/20/2008 2:56 AM CDT) BUN 16 7 - 17 mg/dL [facility] CO2 31 22 - 32 mmol/l [facility] OSMOLALITY, CALCULATED 292 275 - 295 mOsm/Kg [facility] POTASSIUM 4.0 3.5 - 5.0 mEq/L [facility] CREATININE 0.7 0.7 - 1.2 mg/dL [facility] CALCIUM 9.1 8.4 - 10.5 mg/dL [facility] GLUCOSE 94 70 - 110 mg/dL [facility] CHLORIDE 106 95 - 110 mEq/L [facility] SODIUM 142 136 - 145 mEq/L [facility] ANION GAP 9 9 - 20 mEq/L [facility] Blood specimen (specimen) 04/20/2008 2:56 AM CDT 04/20/2008 3:23 AM CDT us Jett Hinson MD CHEMISTRY ORDERABLES Final Result INTERFACE SYSTEM Refer to clinic/hospital department [facility] CLIA# [id number] [address] [place] [address] documented in this encounter Visit Diagnoses Diagnosis Hemiplegia affecting unspecified side, late effect of cerebrovascular disease (CMS/HCC) Hemiplegia affecting unspecified side, late effect of cerebrovascular disease Unspecified essential hypertension Other and unspecified hyperlipidemia Pure hypercholesterolemia Anxiety state, unspecified Depressive disorder, not elsewhere classified Obesity, unspecified documented in this encounter Care Teams Pre Sales Architect Relationship Specialty Start Date End Date Rafal Kwok MD [address] [phone] PCP - General 11/27/09 documented as of this encounter
--- OUTSIDE RECORDS SUMMARY | 2025-03-29 13:07 | XMS_ITS | Encounter Summary ---
Author Organization [facility] Address [address] [place] [address] Care Team Providers Care Plant Protection Guard Name Role Phone Rafal Kwok MD Primary Care Provider [phone] Encounter Details Date Type Department Care Team (Latest Contact Info) Description 12/03/1998 Outpatient Historical HIS [facility] Kevin Mabry MD [address] [place] [address] Chest pain, unspecified (Primary Dx); Backache, unspecified; Nonallopathic lesion of cervical region, not elsewhere classified; Nonallopathic lesion of thoracic region, not elsewhere classified Social History Tobacco Use Types Packs/Day Years Used Date Smoking Tobacco: Never Assessed Comments Unknown Sex and Gender Information Value Date Recorded Sex Assigned at Not on file 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 Gender Identity Not on file Sexual Orientation Not on file documented as of this encounter Plan of Treatment Not on file documented as of this encounter Visit Diagnoses Diagnosis Chest pain, unspecified- Primary Backache, unspecified Nonallopathic lesion of cervical region, not elsewhere classified Nonallopathic lesion of thoracic region, not elsewhere classified documented in this encounter Care Teams Plant Protection Guard Relationship Specialty Start Date End Date Rafal Kwok MD [address] [facility] 1 [place] [phone] PCP - General 11/27/09 documented as of this encounter
--- OUTSIDE RECORDS SUMMARY | 2025-03-29 13:07 | XMS_ITS | Encounter Summary ---
Author Organization [facility] Address [address] [place] [address] Care Team Providers Care Liquor Commissioner Name Role Phone Rafal Kwok MD Primary Care Provider [phone] Encounter Details Date Type Department Care Team (Latest Contact Info) Description 07/20/2001 Outpatient Historical HIS [facility] Lloyd Gonzalez MD NO ADDRESS ON FILE HYPERTROPHY OF BREAST (Primary Dx); MASTODYNIA; JOINT PAIN-SHLDER; BACKACHE NOS Social History Tobacco Use Types Packs/Day Years Used Date Smoking Tobacco: Never Assessed Comments Unknown Sex and Gender Information Value Date Recorded Sex Assigned at Not on file 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
--- NOTE | 2025-03-29 13:38 | PM.HP ---
Providers/Chief Complaint Admitting Physician: Selwyn Cook MD Primary Care Provider: Rafal Kwok MD Chief Complaint: Hypoglycemia History of Present Illness Alpa Barrera is a 69 year old female with past medical history of atrial fibrillation/flutter, post pacemaker implantation, dyslipidemia, sleep apnea, CVA with mild carotid artery stenosis with chronic anticoagulation with Eliquis, pacemaker implantation was sent in for direct admission from endocrinology office today because of persistent recurrent symptomatic hypoglycemia. As per medical reconciliation patient takes Tresiba 22 units q. nightly and sliding scale insulin at home. She has not taken her insulin over a week. Blood sugar at the endocrine clinic was 40 with patient being symptomatic due to confusion. Dexcom data from 03/26 showed blood glucose under 70 the whole day with numbers dropping to 40 and 50 multiple times. Endocrinology office requested patient to be admitted for further evaluation and management. Examination patient lying comfortably in bed, had just come back from the bathroom back to her bed. Seems weak tired and out of breath. Patient states her weakness and tiredness has been getting worse for last 1 to 2 weeks worsening over last 1 week with concerns for difficulty in breathing which has been getting worse for last few months. She states she is never able to lie down flat for many years. She was diagnosed with sleep apnea but does not like to use BiPAP/CPAP as she feels claustrophobic. Denies any chest pain or palpitations. 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 States diarrhea has same for over 2 years. Review of Systems General: Reports: 10 or more systems reviewed and unremarkable except in HPI and below Const: Denies: fever(s), chills, body aches, change in appetite, change in weight, malaise, night sweats, diaphoresis, change in sleep pattern, daytime sleepiness or snoring Eyes: Denies: change in vision, blurry vision, photophobia, eye discomfort or eye discharge ENMT: Denies: throat pain, enlarged tonsils, hoarseness, mouth pain, oral sores, dry mouth, tinnitus, nasal congestion or post nasal drip Card: Denies: chest pain, palpitations, irregular heart rhythm, edema, swelling of feet/ankles, lightheadedness, syncope, pre-syncope, dyspnea on exertion, orthopnea, leg pain with exertion or acrocyanosis Resp: Denies: dyspnea, productive cough, non-productive cough, wheezing, stridor, pain on inspiration, change in phlegm color, hemoptysis or chest congestion GI: Denies: abdominal pain, nausea, vomiting, hematemesis, coffee ground emesis, dysphagia, heartburn, diarrhea, constipation, bloating, GI cramping, change in bowel habits, pain on defecation, hematochezia or melena : Denies: flank pain, dysuria, urinary frequency, urinary urgency, urinary hesitancy, nocturia or hematuria Musc: Denies: neck pain, back pain, extremity pain, joint pain, joint swelling, joint redness, joint stiffness or limited range of motion Neuro: Denies: headache(s), numbness in extremities, weakness in extremities, sensory changes, lack of coordination, difficulty walking, frequent falls, dizziness, vertigo, confusion, Slurred speech present, difficulty communicating thoughts or seizure-like activity Psych: Denies: anxiety, depression, mood swings, panic attacks, hopelessness or irritability Endo: Denies: polyuria, polydipsia, tired all the time, cold intolerance, excessive sweating, flushing or heat intolerance Rahat/Lymph: Denies: easy bruising or easy bleeding All/Imm: Denies: tongue swelling, facial swelling or acute wheezing Medications/Allergies Home Medications ?Medication ?Instructions ?Recorded ?Confirmed ?Last Taken ?Type insulin aspart U-100 100 unit/mL See Rx Instructions .Route .COMPLEX 06/24/23 03/29/25 Unknown History (3 mL) subcutaneous pen (Novolog FlexPen U-100 Insulin aspart) insulin degludec 100 unit/mL (3 22 unit SUBCUT BEDTIME 06/24/23 03/29/25 11/21/24 History mL) subcutaneous pen (Tresiba FlexTouch U-100 insulin) nitroglycerin 0.4 mg sublingual 0.4 mg sublingual Q5M PRN Chest 06/24/23 03/29/25 Unknown History tablet (Nitrostat) Pain olmesartan 20 1 tab PO QAM 06/24/23 03/29/25 1 Day Ago History mg-hydrochlorothiazide 12.5 mg ~03/28/25 tablet amitriptyline 75 mg tablet 75 mg PO DAILY 07/06/24 03/29/25 1 Day Ago History ~03/28/25 colestipol 1 gram tablet 1 g PO BID 11/22/24 03/29/25 1 Day Ago History ~03/28/25 folic acid 1 mg tablet 1 mg PO DAILY 11/22/24 03/29/25 1 Day Ago History ~03/28/25 hydrocodone 5 mg-acetaminophen 325 1 tab PO Q8H PRN pain #5 tabs 11/22/24 03/29/25 1 Month Ago Rx mg tablet ~02/26/25 topiramate 100 mg tablet 100 mg PO DAILY 11/22/24 03/29/25 1 Day Ago History ~03/28/25 amlodipine 10 mg tablet 10 mg PO DAILY #90 tabs 12/19/24 03/29/25 1 Day Ago Rx ~03/28/25 Diabetic shoes and Inserts #1 ea 12/27/24 03/29/25 Unknown Rx galcanezumab-gnlm 120 mg/mL See Rx Instructions .Route 01/03/25 03/29/25 1 Month Ago Rx subcutaneous pen injector .COMPLEX #1 mL ~02/26/25 (Emgality Pen) apixaban 5 mg tablet (Eliquis) 5 mg PO BID 03/29/25 03/29/25 1 Day Ago History ~03/28/25 blood-glucose sensor (Dexcom G7 #3 ea 03/29/25 03/29/25 Unknown Rx Sensor device) isosorbide mononitrate 30 mg 30 mg PO DAILY 03/29/25 03/29/25 1 Day Ago History tablet,extended release 24 hr ~03/28/25 sotalol 80 mg tablet 80 mg PO BID 03/29/25 03/29/25 1 Day Ago History ~03/28/25 Allergies Allergy/AdvReac Type Severity Reaction Status Date / Time Alpha-Gal Allergy Severe ALGY-Hives Verified 10/04/24 13:21 (Xtiofazsk-Fnjuf-8,3-Gala Penicillins Allergy Intermediate hives Verified 10/04/24 13:21 tramadol AdvReac possibly Verified 10/04/24 13:21 lowered seizure threshold PFSH Acute PFSH: Medical History (Updated 03/29/25 @ 16:43 by Selwyn Cook MD) Pacemaker Hypertension Immunization counseling High risk medication use IDDM (insulin dependent diabetes mellitus) Seropositive rheumatoid arthritis of multiple sites Numbness and tingling of both feet Anticoagulation adequate with anticoagulant therapy Sleep apnea Conversion disorder Carotid stenosis Dyslipidemia Diabetes Atrial fibrillation Surgical History (Updated 03/29/25 @ 15:22 by Selwyn Cook MD) History of knee surgery Dr. Adorno- Bilateral History of hysterectomy History of appendectomy History of cholecystectomy Family History Mother Diabetes Hypertension Father Diabetes CAD (coronary artery disease) Hypertension Sister Hypertension Diabetes Brother Diabetes Social History Smoking and tobacco/nicotine status: never used tobacco/nicotine Alcohol intake: former Substance/Drug Use: never Household members: spouse Marital status: Current occupational status: disabled Vitals/I&O/Wt Last Vital Signs O2 Del Method Room Air 03/29/25 13:13 Weight last 48 hrs Weight 93.894 kg Physical Exam Narrative: General: In mild distress because shortness of breath, AO x 3, weak appearing HEENT: PERRLA, pupils bilaterally equal and reactive Chest: Normal vesicular breath sounds, no added sounds, equal good air entry bilaterally CVS: S1-S2 regular, no murmurs, no tachycardia, no gallops, no rubs Abdomen: Soft, nontender, no organomegaly, bowel sounds present Neuro: No focal deficits, no facial deformity, AO x3, power 5/5 in all limbs Data 03/30/25 03:14 03/30/25 03:14 A&P Assessment and plan 1. Hypoglycemia associated with diabetes: Persistent symptomatic recurrent hypoglycemia. Dexcom data for last 3 days shows persistently blood sugar below 70 with sometimes dropping to 40s and 50s. Supposed to be on Tresiba 22 units nightly and sliding scale. Not taking insulin for a week. Hold off on insulin. Hypoglycemia protocol. Monitor blood sugars every 1 hour. Start on D5 at 50 cc/h. Target blood glucose at 100 and above. Check TSH levels, ACTH, cortisol level, ACTH stimulation test. Depending on the result can plan for steroids. CT abdomen pelvis without contrast from 12/16 did not show any pancreatic lesions. Depending on the results can plan for CT abdomen pelvis with contrast. Check blood culture, urinalysis to rule out infectious cause. Check alcohol level, urine drug screen. Check renal functions. No concerns for malnourishment with a BMI of more than 39. Check IGF 2. IDDM (insulin dependent diabetes mellitus): Check A1c. Hold off on insulin as above. 3. Atrial fibrillation: Follows up with cardiology as an outpatient. Continue with home dose of sotalol. Telemetry. Continue with home dose of Eliquis. 4. Dyslipidemia: Check lipid panel. 5. Exocrine pancreatic insufficiency: 6. Pacemaker: 7. Hypertension: Goal blood pressure less than 140/90 mmHg. Continue with home dose of amlodipine, Imdur, ARB. Hold off on home dose of hydrochlorothiazide. Depending on blood pressures will uptitrate with goal blood pressure as above. Blood pressure is elevated on admission. IV hydralazine 10 mg every 4 hours as needed for systolic of more than 160 mmHg. 8. Chronic diarrhea: Most likely in setting of alpha gal. Check stool studies to rule out infectious cause. 9. Exertional shortness of breath: Could be in setting of congestive heart failure or worsening sleep apnea. Check echocardiogram. Check D-dimer. Can plan for CTA chest to rule out PE. But patient is already on Eliquis. Continue IV fluids for now. Watch for fluid overload. Plan: Full code Regular diet Eliquis was sufficient for DVT prophylaxis Famotidine for PUD prophylaxis PDMP PDMP Reviewed: Not Reviewed Attestations Medical Necessity Statement*: Admission for more than 2 midnights for further evaluation and management of persistent recurrent symptomatic hypoglycemia requiring dextrose fluid, frequent blood sugar checks Critical Care Time: The high probability of a clinically significant, sudden or life threatening deterioration of the patient's [endocrinology, cardiac] system(s) required my full and direct attention, intervention and personal management. The critical care time is as shown. This time is in addition to time spent performing any reported procedures but includes the following: [x] Data and vital sign review and interpretation [x] Patient assessment, examination and intervention [x] Documentation [x] Medication orders and management Critical Care Time (min): 65 Coding Level of Care Code Critical Care >/= 30 minutes Critical care time (in minutes): 65 The high probability of a clinically significant, sudden or life threatening deterioration, as referenced in this documentation, required my full and direct attention, intervention and personal management. The critical care time shown is in addition to time spent performing any reported separately billable procedures and includes the following: [x] Data and vital sign review and interpretation [x] Patient assessment, examination and intervention [x] Medication orders and management [x] Patient/Family updates as able [x] Care Coordination and Documentation. Diagnoses Hypoglycemia associated with diabetes E11.649 IDDM (insulin dependent diabetes mellitus) Atrial fibrillation I48.91 Dyslipidemia E78.5 Exocrine pancreatic insufficiency K86.81 Pacemaker Z95.0 Hypertension I10 Chronic diarrhea K52.9 Exertional shortness of breath R06.02
--- NOTE | 2025-03-29 13:44 | XRR_ITS ---
PROCEDURE INFORMATION: Exam: XR Chest Exam date and time: 03/29/2025 1:46 PM Age: 69 years old Clinical indication: Cough TECHNIQUE: Imaging protocol: Radiologic exam of the chest. Views: 1 view. COMPARISON: CR XR chest 1V portable [id number] 11/11/2023 10:34 PM FINDINGS: Tubes, catheters and devices: A left chest pacer with [address] is in place. Lungs: The lungs are clear. Pleural spaces: The pleural spaces are clear. No pneumothorax. Heart/Mediastinum: Mild cardiac enlargement is unchanged. Mediastinal size is normal. Bones/joints: There has been previous cervical spine fusion surgery. No suspicious osseous lesions. XR/XR chest 1V portable [id number] IMPRESSION: 1. Cardiomegaly. 2. No acute disease in the chest.
--- NOTE | 2025-03-29 13:44 | ECG_ITS ---
[facility] Date: 2025-03-29 Pat Name: Alpa Barrera Department: Room: [facility] Gender: Female Book Reviewer: : 1955 Requested By: Selwyn Cook Order Number: [id number] Laurie MD: Toñito Becerra M.D. Measurements Intervals [place] Rate: 60 P: 112 CA: 187 QRS: -1 QRSD: 79 T: 33 QT: 434 QTc: 436 Interpretive Statements ELECTRONIC ATRIAL PACEMAKER POSSIBLE ANTERIOR MYOCARDIAL INFARCTION , PROBABLY OLD [30 ms Q WAVE IN V3/V4, OR R < 0.2 mV IN V4] ABNORMAL RHYTHM ECG Compared to ECG 11/22/2024 15:07:43 No significant changes Electronically Signed On 03-29-2025 22:47:38 CDT by Toñito Becerra M.D. [email or web address]
[2025-03-29] MEDS: heparin 5,000 unit/mL INJ 1 mL 5000 UNIT SUBCUT (13:56)
[2025-03-29 14:39] LABS: Hematocrit 39.9 % (36-47); Hemoglobin 13.30 g/dL (11.27-16.99); Mean Corpuscular HGB Conc 33.3 g/dL (30-55); Mean Corpuscular Hemoglobin 29.8 pg (27-33); Mean Corpuscular Volume 89.3 fl (85-98); Nucleated Red Blood Cells % 0 %; Platelet Count 136 10^3/cmm (157-399); Red Blood Count 4.47 10^6/uL (3.85-5.65); White Blood Count 5.29 10^3/uL (3.29-11.43)
[2025-03-29 14:50] LABS: Estmated Average Glucose 117; Hemoglobin A1C 5.7 % (4.0-6.0)
[2025-03-29 14:57] LABS: Lactic Sepsis W/Reflex 0.9 mmol/L (0.5-2.2)
[2025-03-29] MEDS: hyDRALAzine 20 mg/mL INJ 1 mL 10 MG IVP (15:04)
[2025-03-29 15:07] LABS: Cosyntropin Baseline 4.04 mcg/dL
[2025-03-29 15:15] LABS: Procalcitonin 0.03 ng/mL (0-0.5); Thyroid Stimulating Hormone 2.71 uIU/mL (0.27-4.20); Vitamin B12 308 pg/mL (232-1245)
[2025-03-29 15:26] LABS: Alanine Aminotransferase 14 U/L (0-33); Albumin Level 3.9 g/dL (3.5-5.2); Alkaline Phosphatase 59 U/L (35-105); Anion Gap 13.9 (5-19); Aspartate Amino Transferase 19 U/L (0-32); Blood Urea Nitrogen 17 mg/dL (8-23); Calcium 9.1 mg/dL (8.5-10.5); Carbon Dioxide 26 mmol/L (22-29); Chloride 108 mmol/L (98-107); Creatinine Clr Calc Pharmacy 67.4451; Globulin 3.0 g/dL (1.3-4.6); Glucose 73 mg/dL (65-115); Iron 74 ug/dL (37-145); Osmolality Calculated 298 mOsm/kg (285-295); Potassium 3.9 mmol/L (3.5-5.1); Sodium 144 mmol/L (136-145); Total Iron Binding Capacity 317 mcg/dl; Total Protein 6.9 g/dL (6.6-8.7); Unsaturated Iron Binding 243 ug/dL (112-347)
[2025-03-29 15:57] LABS: Alcohol Level < 10 mg/dL (0-10)
--- NOTE | 2025-03-29 16:02 | USCV_ITS ---
Apla Barrera Age: 69 Gender: F : 1955 Exam Date: 03/29/2025 19:54 Ordering Phys: Selwyn Cook MD Technologist: RJ [place] [facility] [place]: chf, history of Afib, pacer, dyslipidemia, CVA, DM BP: 169 / 86 HR: 59 Rhythm: Paced Technical Quality: Adequate MEASUREMENTS (Male / Female) Normal Values 2D ECHO LV Diastolic Diameter PLAX 4.3 cm 4.2 - 5.9 / 3.9 - 5.3 cm IVS Diastolic Thickness 1.6 cm 0.6 - 1.0 / 0.6 - 0.9 cm IVS Systolic Thickness 1.9 cm LVPW Diastolic Thickness 1.4 cm 0.6 - 1.0 / 0.6 - 0.9 cm LVPW Systolic Thickness 1.7 cm LVOT Diameter 2.0 cm LV Ejection Fraction 2D Teich 63.0 % LV Ejection Fraction MOD 4C 66.3 % LV Ejection Fraction MOD 2C 64.6 % LV Ejection Fraction 2C AL 64.7 % LA Diameter 3.6 cm Aorta at Sinotubular Diameter 2.5 cm IVC Diameter 1.1 cm M-MODE LA Ao Ratio MM 1.6 AV Cusp Separation MM 1.8 cm DOPPLER AV Peak Velocity 158.0 cm/s LVOT Peak Velocity 96.0 cm/s AV Area Cont Eq vti 1.7 cm squared AV Area Cont Eq pk 1.8 cm squared MV Peak Velocity 141.0 cm/s MV Area PHT 2.7 cm squared Mitral E to A Ratio 0.6 TR Peak Velocity 255.0 cm/s TR Peak Gradient 26.0 mmHg TV Peak E Velocity 40.0 cm/s PV Peak Velocity 97.0 cm/s FINDINGS Left Ventricle Normal left ventricular size, systolic function and wall thickness, with no regional wall motion abnormalities. Left ventricular ejection fraction is estimated at 60 %. Grade I/IV diastolic dysfunction (abnormal relaxation filling pattern), normal to mildly elevated filling pressures. Right Ventricle The right ventricle is normal in size and function. Right Atrium The right atrium is normal in size. Left Atrium Moderately increased left atrial size. Mitral Valve Structurally normal mitral valve without significant stenosis or prolapse. There is no mitral regurgitation. Aortic Valve Structurally normal aortic valve without significant sclerosis or stenosis. There is no aortic regurgitation. Tricuspid Valve Structurally normal tricuspid valve without significant stenosis or regurgitation. Pulmonary artery systolic pressure is normal. Pulmonic Valve Structurally normal pulmonic valve without significant stenosis. There is no pulmonic regurgitation. Pericardium Normal pericardium without effusion. Aorta Normal ascending aorta dimension. IVC The inferior vena cava appears normal. CONCLUSIONS Normal left ventricular size, systolic function and wall thickness, with no regional wall motion abnormalities. Left ventricular ejection fraction is estimated at 60 %. Grade I/IV diastolic dysfunction (abnormal relaxation filling pattern), normal to mildly elevated filling pressures. No significant valve abnormalities. There is no pericardial effusion. Right atrial pressure is around 5 mm of mercury. Fatou Valentino MD (Electronically Signed) Final Date: 30 March 2025 13:18 S
[2025-03-29] MEDS: cosyntropin 0.25 mg SDV IVP (16:53)
[2025-03-29 17:17] LABS: Cosyntropin Baseline 4.26 mcg/dL
[2025-03-29 20:07] LABS: Cosyntropin 30 Minute 20.12 mcg/dL
[2025-03-29 20:08] LABS: Cosyntropin 1 Hour 24.97 mcg/dL
[2025-03-30] VITALS (48 sets, daily range): BP systolic 108–177; BP diastolic 54–109; PULSE 60–92; RESP 15–26; TEMP 36.3–36.9; O2SAT 93–100
[2025-03-30 03:34] LABS: Hematocrit 38.2 % (36-47); Hemoglobin 12.70 g/dL (11.27-16.99); Mean Corpuscular HGB Conc 33.2 g/dL (30-55); Mean Corpuscular Hemoglobin 29.5 pg (27-33); Mean Corpuscular Volume 88.8 fl (85-98); Nucleated Red Blood Cells % 0 %; Platelet Count 143 10^3/cmm (157-399); Red Blood Count 4.30 10^6/uL (3.85-5.65); White Blood Count 5.28 10^3/uL (3.29-11.43)
[2025-03-30 04:00] LABS: Alanine Aminotransferase 12 U/L (0-33); Albumin Level 3.6 g/dL (3.5-5.2); Alkaline Phosphatase 57 U/L (35-105); Anion Gap 12.7 (5-19); Aspartate Amino Transferase 16 U/L (0-32); Blood Urea Nitrogen 12 mg/dL (8-23); Calcium 9.1 mg/dL (8.5-10.5); Carbon Dioxide 26 mmol/L (22-29); Chloride 106 mmol/L (98-107); Creatinine Clr Calc Pharmacy 67.4451; Globulin 2.9 g/dL (1.3-4.6); Glucose 110 mg/dL (65-115); Magnesium 2.1 mg/dL (1.7-2.3); Osmolality Calculated 292 mOsm/kg (285-295); Potassium 3.7 mmol/L (3.5-5.1); Procalcitonin 0.02 ng/mL (0-0.5); Sodium 141 mmol/L (136-145); Total Protein 6.5 g/dL (6.6-8.7)
[2025-03-30 04:12] LABS: Cholesterol 162 mg/dL (0-200); HDL Cholesterol 53 mg/dL (60-100); Triglycerides 70 mg/dL (0-150)
--- OUTSIDE RECORDS SUMMARY | 2025-03-30 06:26 | XMS_ITS | Clinical Summary ---
Author Organization [facility] Address [address] [place] [address] Phone Care Team Providers Care Independent Insurance Adjuster Name Role Phone Rafal Kwok MD Primary Care Provider [phone] Allergies Active Allergy Reactions Criticality Noted Date Comments Alpha-Gal (Opgstsvld-Hoymk-9,3-Galactose) Diarrhea,Itching Low 11/02/2024 Cromolyn Hives High 12/05/2024 [...] daily. 4 Active cyanocobalamin/ folic acid (vitamin J21-qnryz acid) 1,000-400 mcg Lozenge dissolve 2 lozenges [...] Abstract 02/13/2025 2:15 PM CDT Procedure visit [facility] [address] [place] [phone] Sally Valverde MD SSS (sick sinus syndrome) (CMS/HCC) (Primary Dx); Bradycardia; Paroxysmal atrial fibrillation (CMS/HCC); Cardiac pacemaker in situ 01/20/2025 Refill [facility] Gastroenterology[address] [place] [id number] Gunjan Singleton PA-C Allergy to alpha-gal; Bile salt-induced diarrhea 01/12/2025 External Device Data [facility] ABSTRACTION Provider, Abstract 01/12/2025 External Device Data [facility] ABSTRACTION Provider, Abstract 01/11/2025 External Device Data [facility] ABSTRACTION Provider, Abstract 01/03/2025 External Device Data [facility] ABSTRACTION Provider, Abstract 12/30/2024 Results Follow-Up [facility] Gastroenterology[address] [place] [phone] Gunjan Singleton PA-C C. DIFFICILE DETECTION, STOOL CULTURE W/SHIGA TOXIN, C. 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 [place] [address] Gunjan Singleton PA-C [address] [place] [address] 06/30/2025 11:00 AM DISTRICT CUSTOMS DIRECTOR Office Visit [facility] [address] [place] [address] Sally Valverde MD [address] [place] [address] Sterling Ott CRNP [address] [place] [address] 06/30/2025 2:00 PM DISTRICT CUSTOMS DIRECTOR Office Visit [facility] [address] [place] [address] 06/30/2025 2:15 PM DISTRICT CUSTOMS DIRECTOR Office Visit [facility] [address] [place] [address] Waldo Singleton, OD [address] [place] [address] Health Maintenance Due Date Last [...] 2 - PCV) 06/28/2020 06/28/2019 COVID-19 Vaccine (2023-2 5 season) 2024 05/24/2021, 04/24/2021, 03/27/2021 INFLUENZA VACCINE (#1) 2025 , 06/28/2019, 05/24/2017 DIABETES HBA1C Q 6 MONTHS 04/19/2025 10/20/2024, 08/2023 DIABETES ANNUAL RETINAL EXAM 06/29/202501/2024, 06/29/2024, 06/29/2024, Additional history exists DTAP/TDAP/TD VACCINES (2 - T d or Tdap) 05/24/2027 05/24/2017 COLORECTAL SCREENING 02/10/2034 02/11/2024, 02/11/2024, 02/11/2024 Colorectal Cancer Screening 02/10/2034 Medical Devices Implanted Type Area Storm Sash Maker Device Identifier Shelf Expiration Date Model / Serial / Lot Lens Io Tecnis 1pc 25.0 [id number] - [id number] Implanted:Qty: 1 on 02/21/2021 by Samir Turner MD at [facility] Left: Eye [employer] 10/28/2024 [id number] / [id number] / N/A Lens Iol Tecnis Eyhance 24.5 [id number] - [id number] Implanted:Qty: 1 on 03/07/2021 by Samir Turner MD at [facility] Right: Eye [employer] 12/31/2023 [id number] / [id number] / Lead Capsurefix Novus Mri 52cm Endocardial Pacing 5076-52 - [id number] Implanted:Qty: 1 on 11/03/2024 by Sally Valverde MD at [facility] Lead Left: Chest Wall [employer] - BULK [employer]Y [id number] 08/10/2026 5076-52 / [id number] 6V / Lead Capsurefix Novus Mri 58cm Endocardial Pacing 5077 5076-58 - [id number] Implanted:Qty: 1 on 11/03/2024 by Sally Valverde MD at [facility] Lead Left: Chest Wall [employer] CRM - BULK BUY [id number] 07/28/2026 5076-58 / [id number] 2V / Pacemaker Benkelman Xt Dr Mri Ip Dual Chmbr Surescan [id number] - [id number] Implanted:Qty: 1 on 11/03/2024 by Sally Valverde MD at [facility] Pacemaker Left: Chest Wall [employer] CRM - BULK BUY [id number] 03/06/2026 [id number] / [id number] / Procedures Procedure Name Priority Date/Time Associated Diagnosis Comments DC PROGRAM EVAL IMPLANTABLE IN PERSN DUAL LD PACER Routine 02/13/2025 2:18 PM CDT SSS (sick sinus syndrome) (CMS/HCC) Bradycardia Paroxysmal atrial fibrillation (CMS/HCC) Cardiac pacemaker in situ HEMOGLOBIN A1C Routine 02/22/2024 3:08 PM CDT COLONOSCOPY REPORT 02/11/2024 11 :42 AM CDT from Last 3 Months or Most Recently Relevant to Health Maintenance Results * DC PROGRAM EVAL IMPLANTABLE IN PERSN DUAL LD [...] Provider and Device check 06-30-2025, in clinic. [employer] remote transmission form home 3 month. See [...] Seymour MD - 02/11/2024 11:42 AM CDT [facility] Patient Name: Alpa Barrera Procedure Date: 02/11/2024 Date of : 1955 Admit Type: Outpatient Age: 68 Attending MD: Darin Seymour MD, Procedure: Colonoscopy Indications: Diarrhea Providers: Darin Seymour MD Referring MD: Medicines: Monitored Anesthesia Care Complications: No immediate complications. Estimated blood loss: Minimal. Procedure: Pre-Anesthesia Assessment: - [place] Protocol: - Pre-procedure Verification: Prior to the [...] verified by the physician, the nurse, the repairer recreational vehicle and the mri technician in the endoscopy suite. - Prior [...] Out: 11:26:57 AM [address] [place], [place] Darin Seymour MD GI PROCEDURE ORDERABLES Shauna l Result from Last 3 Months or Most Recently Relevant to Health Maintenance Insurance MEDICAID [facility] Advance Directives For more information, please contact: [phone] * Full Code (Latest Code Status on [...] 11:35 AM 03/07/2021 3:48 PM Care Teams Independent Insurance Adjuster Relationship Specialty Start Date End Date Rafal Kwok MD [address] [place] [address] PCP - General 12/05/20
--- OUTSIDE RECORDS SUMMARY | 2025-03-30 06:27 | XMS_ITS | Encounter Summary ---
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 EXTENSION AGENT Gender Identity Not on file Sexual Orientation [...] CDT) MAGNESIUM 2.1 1.7 - 2.4 mg/dL [facility] Blood specimen (specimen) 04/20/2008 2:56 AM CDT 04/20/2008 3:23 AM CDT Jett Hinson MD CHEMISTRY ORDERABLES Final Result Performing Organization Address [facility] Phone Number INTERFACE SYSTEM Refer to clinic/hospital department [facility] CLIA# [id number] [address] [place] [address] * TSH (04/20/2008 2:56 AM CDT) TSH 1.489 0.350 - 5.500 uIU/ml [facility] Blood specimen (specimen) 04/20/2008 2:56 AM CDT 04/20/2008 3:23 AM CDT Jett Hinson MD CHEMISTRY ORDERABLES Final Result Performing Organization Address [facility] Phone Number INTERFACE SYSTEM Refer to clinic/hospital department [facility] CLIA# [id number] [address] [place] [address] * BASIC METABOLIC PANEL (04/20/2008 2:56 AM CDT) BUN 16 7 - 17 mg/dL [facility] CO2 31 22 - 32 mmol/l [facility] OSMOLALITY, CALCULATED 292 275 - 295 mOsm/Kg [facility] POTASSIUM 4.0 3.5 - 5.0 mEq/L [facility] CREATININE 0.7 0.7 - 1.2 mg/dL [facility] CALCIUM 9.1 8.4 - 10.5 mg/dL [facility] GLUCOSE 94 70 - 110 mg/dL [facility] CHLORIDE 106 95 - 110 mEq/L [facility] SODIUM 142 136 - 145 mEq/L [facility] ANION GAP 9 9 - 20 mEq/L [facility] Blood specimen (specimen) 04/20/2008 2:56 AM CDT 04/20/2008 3:23 AM CDT us Jett Hinson MD CHEMISTRY ORDERABLES Final Result INTERFACE SYSTEM Refer to clinic/hospital department [facility] CLIA# [id number] [address] [place] [address] documented in this encounter Visit Diagnoses Diagnosis Hemiplegia affecting unspecified side, late effect of cerebrovascular disease (CMS/HCC) Hemiplegia affecting unspecified side, late effect of cerebrovascular disease Unspecified essential hypertension Other and unspecified hyperlipidemia Pure hypercholesterolemia Anxiety state, unspecified Depressive disorder, not elsewhere classified Obesity, unspecified documented in this encounter Care Teams Mortar Carrier Relationship Specialty Start Date End Date Rafal Kwok MD [address] [phone] PCP - General 11/27/09 documented as of this encounter
--- OUTSIDE RECORDS SUMMARY | 2025-03-30 06:27 | XMS_ITS | Encounter Summary ---
Author Organization [facility] Address [address] [place] [address] Care Team Providers Care Rack Production Worker Name Role Phone Rafal Kwok MD Primary Care Provider [phone] Encounter Details Date Type Department Care Team (Latest Contact Info) Description 06/11/2001 Outpatient Historical HIS [facility] Kevin Mabry MD [address] [place] [address] Mastodynia (Primary Dx); Other specified disorder of breast Social History Tobacco Use Types Packs/Day Years Used Date Smoking Tobacco: Never Assessed Comments Unknown Sex and Gender Information Value Date Recorded Sex Assigned at Not on file Legal Sex Female 2:59 AM 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
--- OUTSIDE RECORDS SUMMARY | 2025-03-30 06:27 | XMS_ITS | Patient Health Record ---
Author Organization [facility] Address [address] [place], [place] [id number] Care Team Providers Care Mail Order Biller Name Role Phone Deep Gant DO Primary Care Provider Unavail able Kimberly RODRIGUEZ, Willie Unavailable [phone] Jose Adorno DO Unavailable Unavailable Allergies Allergen (clinical drug ingredient) Drug/Non Drug Allergy documented on EMR Reaction Allergy Type Onset Date Status penicillin severe rash Drug Allergy Acti ve Reason For Referral No Information Medications Medication SIG (Take, Route, Frequency, Duration) Notes Start Date End Date Status isosorbide mononitrate 30 mg 1 tab(s) orally once a day (in the morning); Duration: 30 day(s) Active aspirin 81 mg 1 tab(s) orally once a day; Duration: 30 day(s) Active gabapentin 300 mg 3 cap(s) orally 3 ti mes a day; Duration: 30 day(s) Active hydrochlorothiazide-lisino pril 12.5 mg-10 mg 1 tab(s) orally once a day; Duration: 7 day(s) Active simvastatin 40 mg 1 tab(s) orally once a day (at bedtime); Duration: 30 day(s) Active Vicodin 500 mg-5 mg 1 tab(s) orally Q6-8 H, prn; Duration: 5 day(s) Active traZODone 100 mg 1 tab(s) orally at h s; Duration: 30 day(s) Active clonazePAM 0.5 mg 1/2 tab in the AM 2 tabs at hs orally; Duration: 30 day(s) Active amantadine 100 mg 1 tab(s) orally BID; Duration: 30 day(s) Active Effexor XR 150 mg 1 cap(s) orally orion y; Duration: 30 day(s) Active Plan Of Treatment No Information Insurance Providers Payer Name Payer Address Payer Phone Subscriber Number Group Number Insured Name Patient Relationship to Insured Coverage Start Date Coverage End Date [place] [address] [place] [id number] Alpa Barrera Self - patient is the insured Medical (General) History Medical History History ICD Code Low back pain History of cerebrovascular accident / [facility] Hypertension Irregular heart beats Surgical History Surgery Date(Month/Year) Cholecystectomy Carpal tunnel-left Hysterectomy-complete Appendectomy Hospitalization History Reason Date(Month/Year) Stroke 02/2008
--- OUTSIDE RECORDS SUMMARY | 2025-03-30 06:27 | XMS_ITS | Encounter Summary ---
Author Organization [facility] Address [address] [place] [address] Care Team Providers Care Second Language Tutor Name Role Phone Rafal Kwok MD Primary Care Provider [phone] Encounter Details Date Type Department Care Team (Latest Contact Info) Description 09/23/2001 Outpatient Historical HIS [facility] Kevin Mabry MD [address] [place] [address] Sprain thoracic region (Primary Dx) Social History Tobacco Use Types Packs/Day Years Used Date Smoking Tobacco: Never Assessed Comments Unknown Sex and Gender Information Value Date Recorded Sex Assigned at Not on file Legal Sex Female 2:59 AM 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
--- OUTSIDE RECORDS SUMMARY | 2025-03-30 06:27 | XMS_ITS | Clinical Summary ---
Author Organization [facility] Address [address] [place] [address] Phone Care Team Providers Care Cnc Operator Programmer Name Role Phone Rafal Kwok MD Primary Care Provider [phone] Allergies Active Allergy Reactions Criticality Noted Date [...] on file Legal Sex Female 2:59 AM BINDERY MANAGER Gender Identity Not on file Sexual Orientation [...] series) 2028 Insurance [place]ID [place] [facility]AY[facility] [id number] HMO Advance Directives For more information, please contact: [phone] * Full Code (Latest Code Status on File) Date Activated Date Inactivated Comments 11/27/2009 5:08 PM 11/28/2009 2:04 PM * Full Code Date Activated Date Inactivated Comments 11/27/2009 11:02 AM 11/27/2009 5:08 PM Care Teams Cnc Operator Programmer Relationship Specialty Start Date End Date Rafal Kwok MD [address] [place] [phone] PCP - General 11/27/09
--- OUTSIDE RECORDS SUMMARY | 2025-03-30 06:27 | XMS_ITS | Encounter Summary ---
Author Organization [facility] Address [address] [place] [address] Care Team Providers Care Child And Adolescent Psychologist Name Role Phone Rafal Kwok MD Primary Care Provider [phone] Encounter Details Date Type Department Care Team (Latest Contact Info) Description 12/03/1998 Outpatient Historical HIS [facility] Kevin Mabry MD [address] [place] [address] Chest pain, unspecified (Primary Dx); Backache, unspecified; Nonallopathic lesion of cervical region, not elsewhere classified; Nonallopathic lesion of thoracic region, not elsewhere classified Social History Tobacco Use Types Packs/Day Years Used Date Smoking Tobacco: Never Assessed Comments Unknown Sex and Gender Information Value Date Recorded Sex Assigned at Not on file Legal Sex Female 2:59 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 Gender Identity Not on file Sexual Orientation Not on file documented as of this encounter Plan of Treatment Not on file documented as of this encounter Visit Diagnoses Diagnosis Chest pain, unspecified- Primary Backache, unspecified Nonallopathic lesion of cervical region, not elsewhere classified Nonallopathic lesion of thoracic region, not elsewhere classified documented in this encounter Care Teams Child And Adolescent Psychologist Relationship Specialty Start Date End Date Rafal Kwok MD [address] [facility] 1 [place] [phone] PCP - General 11/27/09 documented as of this encounter
--- OUTSIDE RECORDS SUMMARY | 2025-03-30 06:27 | XMS_ITS | Encounter Summary ---
Author Organization [facility] Address [address] [place] [address] Care Team Providers Care Goggles Assembler Name Role Phone Rafal Kwok MD Primary Care Provider [phone] Encounter Details Date Type Department Care Team (Latest Contact Info) Description 07/07/2001 Outpatient Historical HIS [facility] BryceMark MD [address] [address] MASTODYNIA (Primary Dx) Social History Tobacco Use Types Packs/Day Years Used Date Smoking Tobacco: Never Assessed Comments Unknown Sex and Gender Information Value Date Recorded Sex Assigned at Not on file Legal Sex Female 2:59 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
--- OUTSIDE RECORDS SUMMARY | 2025-03-30 06:27 | XMS_ITS | Encounter Summary ---
Author Organization [facility] Address [address] [place] [address] Care Team Providers Care Principal Quality Engineer Name Role Phone Rafal Kwok MD Primary Care Provider [phone] Encounter Details Date Type Department Care Team (Latest Contact Info) Description 04/22/1999 Outpatient Historical HIS [facility] Kevin Mabry MD [address] [place] [address] Nonallopathic lesion of abdomen and other sites, not elsewhere classified (Primary Dx) Social History Tobacco Use Types Packs/Day Years Used Date Smoking Tobacco: Never Assessed Comments Unknown Sex and Gender Information Value Date Recorded Sex Assigned at Not on file Legal Sex Female 2:59 AM ADMIN DIR Gender Identity Not on file Sexual Orientation Not on file documented as of this encounter Plan of Treatment Not on file documented as of this encounter Visit Diagnoses Diagnosis Nonallopathic lesion of abdomen and other sites, not elsewhere classified- Primary documented in this encounter Care Teams Principal Quality Engineer Relationship Specialty Start Date End Date Rafal Kwok MD [address] [facility] 1 [place] [phone] PCP - General 11/27/09 documented as of this encounter
--- OUTSIDE RECORDS SUMMARY | 2025-03-30 06:27 | XMS_ITS | Encounter Summary ---
Author Organization [facility] Address [address] [place] [address] Care Team Providers Care Nutrition Specialist Name Role Phone Rafal Kwok MD Primary Care Provider [phone] Encounter Details Date Type Department Care Team (Late st Contact Info) Description 12/25/1998 Outpatient Historical HIS [facility] Wendy Mederos MD [address] [place] [address] Hypertrophy of breast (Primary Dx) Social History Tobacco Use Types Packs/Day Years Used Date Smoking Tobacco: Never Assessed Comments Unknown Sex and Gender Information Value Date Recorded Sex Assigned at Not on file Legal Sex Female 2:59 AM MANDARIN SPEAKING NANNY Gender Identity Not on file Sexual Orientation Not on file documented as of this encounter Plan of Treatment Not on file documented as of this encounter Visit Diagnoses Diagnosis Hypertrophy of breast- Primary documented in this encounter Care Teams Nutrition Specialist Relationship Specialty Start Date End Date Rafal Kwok MD [address] [facility] 1 [place] [address] PCP - General 11/27/09 documented as of this encounter
--- OUTSIDE RECORDS SUMMARY | 2025-03-30 06:27 | XMS_ITS | Encounter Summary ---
Author Organization [facility] Address [address] [place] [address] Care Team Providers Care Aerodynamicist Name Role Phone Rafal Kwok MD Primary Care Provider [phone] Encounter Details Date Type Department Care Team (Late st Contact Info) Description 11/12/2009 Ancillary Orders [facility] [place] [address] [place] [address] Sally Valverde MD [address] [facility] [address] [place] [address] PVCs (Premature Ventricular Contractions) Social History Tobacco Use Types Packs/Day Years Used Date Smoking Tobacco: Never Assessed Comments No Sex and Gender Information Value Date Recorded Sex Assigned at Not on file 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 MATERIALS USED: 5, 6, 5 Montenegrin sheaths to the left femoral vein for quadruple, octapolar and quadruple electrode catheter to electrically map HRA, HIS bundle and RV apex. 7 Montenegrin sheath to the right internal jugular for the Orbitor electrode catheter to map coronary sinus. 7 Montenegrin sheath to the right femoral vein, later [...] areas. Baseline measurements as follows: QTC 417, RI 165, QRS 95, QT 430, AH 105, [...] ablation, the patient's baseline was as follows: RI 156, QRS 104, QT 395, AH 100 [...] seconds. Final baseline on isoproterenol as follows: RI 160, QRS 78, QT 374, AH 80, HV 55, with cycle length of 900 at 5 milliseconds. FINAL SUMMARY: 1. RV outflow tract premature ventricular contractions likely in the anteroseptal area, status post radiofrequency ablation. 2. Normal electric conduction system. 3. Moderate sinus bradycardia. klb/ / D [id number] V [id number] Procedure Note Sally Valverde MD - 11/28/2009 [...] conduction system. MATERIALS USED: 5, 6, 5 Montenegrin sheaths to the left femoral vein forquadruple, octapolar and quadruple electrode catheter to electrically mapHRA, HIS bundle and RV apex. 7 Montenegrin sheath to the right internal jugularfor the Orbitor electrode catheter to map coronary sinus. 7 Montenegrin sheathto the right femoral vein, later on [...] sinusareas. Baseline measurements as follows: QTC 417, RI 165, QRS 95, QT 430,AH 105, HV [...] Post ablation, the patient's baseline was asfollows: RI 156, QRS 104, QT 395, AH 100 [...] seconds. Final baseline on isoproterenol as follows: RI 160, QRS78, QT 374, AH 80, HV 55, with cycle length of 900 at 5 milliseconds. FINAL SUMMARY: 1. RV outflow tract premature ventricular contractions likely in theanteroseptal area, status post radiofrequency ablation. 2. Normal electric conduction system. 3. Moderate sinus bradycardia. klb/ / D [id number] V [id number] Sally Valverde MD FLUOROSCOPY ORDERABLES Final Result documented in this encounter Visit Diagnoses Diagnosis PVCs (premature ventricular contractions) Other premature beats PVC's Other premature beats PVCs (premature ventricular contractions) Other premature beats documented in this encounter Care Teams Aerodynamicist Relationship Specialty Start Date End Date Rafal Kwok MD [address] [phone] PCP - General 11/27/09 documented as of this encounter
--- OUTSIDE RECORDS SUMMARY | 2025-03-30 06:27 | XMS_ITS | Encounter Summary ---
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 1 [place] [address] PCP - General 11/27/09 documented as of this encounter
[2025-03-30 06:41] LABS: Glucose Urine UA Negative (Normal); Nitrate Urine Negative (Negative); Specific Gravity, Urine 1.008 (1.005-1.030)
[2025-03-30 06:46] LABS: Add Urine Microscopic? YES
[2025-03-30 07:01] LABS: PCP Screen Urine Negative (Negative)
[2025-03-30] MEDS: HYDROcodone-acetaminophen 5-325 mg Tablet 1 TAB PO ×3 (07:36→23:53)
--- NOTE | 2025-03-30 08:46 | CT_ITS ---
WS: [id number] CTA CHEST WITH CT ABDOMEN AND PELVIS. HISTORY: Persistent hypoglycemia. Short of breath. TECHNIQUE: CT angiogram is performed through the chest. Additional imaging is performed through the abdomen and pelvis with IV contrast. Sagittal and coronal reformats have been submitted. MIP imaging also reviewed. All CT scans at [facility] use at least one of these dose optimization techniques: automated exposure control; mA and/or kV adjustment per patient size (includes targeted exams where dose is matched to clinical indication); or iterative reconstruction. Contrast: Omnipaque 350; 95 cc IV. DLP: 1292.60 mGy.cm COMPARISON: 11/22/2024 CT abdomen and pelvis Chest CTA: No pulmonary embolism. No RIGHT heart strain. Normal size pulmonary artery. Mild atherosclerosis aorta. Aorta is mildly ectatic. No adenopathy. No pericardial or pleural effusions. No pneumonia. No pulmonary mass or nodule. LEFT subclavian cardiac pacer. Prior cervical fusion. Mild hypertrophic vertebral body osteophytes. Abdomen CT: Small hiatal hernia. Prior cholecystectomy. Normal liver and spleen. Splenic granulomata. Normal pancreas and adrenal glands. No renal obstruction. Posterior 12 mm RIGHT renal cysts. Mild atherosclerosis aorta. Normally distended stomach. No small bowel obstruction. Prior appendectomy. No colitis. No ascites or adenopathy. Pelvic CT: No free fluid. Urinary bladder is normally distended. Prior hysterectomy. Degenerative disc disease at L5-S1. CT/CT angio chest w abd pel w con IMPRESSION: 1. No pulmonary embolism. 2. No pneumonia or mediastinal/hilar adenopathy. 3. No GI tract obstruction. 4. Prior appendectomy. 5. Prior cholecystectomy. 6. No ascites or adenopathy in the abdomen or pelvis.
[2025-03-30] MEDS: iohexol 350 mg/mL 500 mL Btl (per mL) IV (09:41)
--- NOTE | 2025-03-30 13:30 | P.PN_ITS ---
Subjective 2 Subjective: No acute events overnight. Seen with multiple family members at bedside. Patient is awake and alert. States she was not able to have a good night sleep. Blood sugars have maintained over 100 overnight on D10 infusion. Has remained afebrile. Blood pressure is better but still elevated. Vitals/I&O/Wt Last Vital Signs Temp 98.5 F 03/30/25 08:00 Pulse 61 03/30/25 13:28 Resp 16 03/30/25 13:28 BP 142/72 03/30/25 11:30 Pulse Ox 94 03/30/25 13:28 O2 Del Method Room Air 03/30/25 13:28 03/29/25 03/30/25 03/30/25 22:59 06:59 14:59 Intake Total 133.333 / 133.333 240 / 373.333 350 / 350 Balance 133.333 / 133.333 240 / 373.333 350 / 350 Weight last 48 hrs Weight 94.166 kg Weight 93.894 kg Physical Exam 2 Narrative: General: In mild distress because shortness of breath, AO x 3, weak appearing HEENT: PERRLA, pupils bilaterally equal and reactive Chest: Normal vesicular breath sounds, no added sounds, equal good air entry bilaterally CVS: S1-S2 regular, no murmurs, no tachycardia, no gallops, no rubs Abdomen: Soft, nontender, no organomegaly, bowel sounds present Neuro: No focal deficits, no facial deformity, AO x3, power 5/5 in all limbs Data 03/30/25 03:14 03/30/25 03:14 Micro: Microbiology 03/29/25 17:25 Blood Culture - Preliminary Blood SPECIMEN COLLECTED 03/29/25 16:40 Blood Culture - Preliminary Blood SPECIMEN COLLECTED A&P Assessment and plan 1. Hypoglycemia associated with diabetes: Persistent symptomatic recurrent hypoglycemia. Dexcom data for last 3 days shows persistently blood sugar below 70 with sometimes dropping to 40s and 50s. Supposed to be on Tresiba 22 units nightly and sliding scale. Not taking insulin for a week. Hold off on insulin. Hypoglycemia protocol. Monitor blood sugars every 2-4 hour. Switch to D5 at 75 cc/h. Will wean down fluid rate keeping blood sugars over 100. Appreciate morning cortisol level to be low. Stimulation test appreciated. Discussed in detail with outpatient supply and distribution manager. Given concerns of persistent hypoglycemia for now we will start on hydrocortisone 20 mg oral twice daily. Normal TSH. Check CT and pelvis with contrast for further evaluation. Follow-up blood culture, urinalysis to rule out infectious cause. Negative alcohol level, urine drug screen. Normal renal functions. No concerns for malnourishment with a BMI of more than 39. Follow-up IGF Discussed in detail with the patient and family was at bedside that for now there is a concern for possible adrenal insufficiency for which she started on steroids but will need to follow-up as an outpatient at a tertiary center for further evaluation and management as unfortunately we do not have those resources in the hospital and patient has not been accepted as an outpatient transfer given patient requiring outpatient workup. Family verbalizes understanding. 2. IDDM (insulin dependent diabetes mellitus): A1c 5.7. Hold off on insulin as above. 3. Paroxysmal atrial fibrillation: Follows up with cardiology as an outpatient. Continue with home dose of sotalol. Telemetry. Continue with home dose of Eliquis. 4. Dyslipidemia: Appreciate lipid panel. 5. Exocrine pancreatic insufficiency: 6. Pacemaker: 7. Hypertension: Goal blood pressure less than 140/90 mmHg. Continue with home dose of amlodipine. Start on hydralazine 25 mg 3 times daily. Increase dose of losartan to 100 mg daily. Imdur changed to twice daily. Blood pressure is elevated on admission. IV hydralazine 10 mg every 4 hours as needed for systolic of more than 160 mmHg. 8. Chronic diarrhea: Most likely in setting of alpha gal. Check stool studies to rule out infectious cause. 9. Exertional shortness of breath: Appreciate echocardiogram for normal EF with grade 1 diastolic dysfunction. No l valvular disorder. CT chest with contrast for further evaluation. Overnight pulse oximetry study. Oral Lasix 40 mg daily. Continue with home dose of Eliquis. Continue IV fluids for now. Watch for fluid overload. Plan: Full code Regular diet Eliquis was sufficient for DVT prophylaxis Famotidine for PUD prophylaxis Care discussed in detail with multiple family members at bedside. All the questions were answered. PDMP PDMP Reviewed: Not Reviewed Attestations 2 Medical Necessity Statement*: Requires further hospitalization for management of persistent recurrent symptomatic hypoglycemia as patient is on D5 fluid infusion and requires further workup Diagnoses Hypoglycemia associated with diabetes E11.649 IDDM (insulin dependent diabetes mellitus) Paroxysmal atrial fibrillation I48.0 Atrial fibrillation type: paroxysmal Dyslipidemia E78.5 Exocrine pancreatic insufficiency K86.81 Pacemaker Z95.0 Hypertension I10 Chronic diarrhea K52.9 Exertional shortness of breath R06.02
--- NOTE | 2025-03-30 15:48 | PC.NURSE ---
Discussed with Dr Green pt's blood glucose and D%W infusing. Verbal orders to decreased D5W to 30ml/hr received.
--- NOTE | 2025-03-30 18:19 | PC.NURSE ---
Shift summary: Pt hypoglycemia resolving. Her blood sugars have been greater than 112 this shift. She has been transitioned from D10 to D5. The rate has been decreased down to 30ml/hr. She received Lasix PO this afternoon. She has been up to bathroom several times this shift. Pt does has some unsteadiness with her gait. Let it be noted she usually wears a brace on one ankle (it was noted in patient's belonging closet) She has had some dizziness per pt, when she gets out of bed but it resolves after a few minutes. She has reported a migraine on and off this shift. Hydrocodone administered twice this shift.
--- NOTE | 2025-03-30 20:00 | PC.NURSE ---
Left sided Weakness Patient's left hand secured entrance monitor is mildly weaker than right. Patient states this is normal for her after her past strokes. She also states she has unsteadiness when ambulating as well as difficulty with finding certain words. Education on fall risk prevention provided. Patient verbalizes understanding.
--- NOTE | 2025-03-30 20:44 | XRR_ITS ---
PROCEDURE INFORMATION: Exam: XR Chest Exam date and time: 03/30/2025 10:13 PM Age: 69 years old Clinical indication: Shortness of breath; Additional info: Increased shortness of breath TECHNIQUE: Imaging protocol: Radiologic exam of the chest. Views: 1 view. COMPARISON: CT angio chest w abd pel w con 03/30/2025 9:28 AM FINDINGS: Tubes, catheters and devices: Left chest ICD. Lungs: Unremarkable. No consolidation. Pleural spaces: Unremarkable. No pleural effusion. No pneumothorax. Heart/Mediastinum: Unremarkable. No cardiomegaly. Bones/joints: Mild degenerative changes of AC joint. Postsurgical changes of lower cervical spine. XR/XR chest 1V portable [id number] IMPRESSION: No definite acute abnormality.
--- NOTE | 2025-03-30 20:46 | PC.NURSE ---
Addendum entered by Myriam Hansen RN 03/30/25 21:10: Amitriptyline order clarified; medication to be administered 75 mg PO at bedtime scheduled. Original Note: Lasix When rounding on patient, patient holding her hand to her chest with labored respirations. Patient stating she is short of breath. Upon inquiry, patient states that this shortness of breath feels like it is getting worse. Lungs clear to auscultation, pulse ox displaying 98% on room air. All other vitals stable. Dr. Washington notified; orders received for BNP, chest xray, 40 mg lasix IVP once, and 40 mg PO KCL once. Prior to shortness of breath, patient also asking for home dose of amitriptyline. Order received from Dr. Washington to administer 75 mg amitriptilyne PO this evening.
[2025-03-30] MEDS: FUROsemide 10 mg/mL SDV 4mL 40 MG IVP (20:55)
[2025-03-30] MEDS: potassium chloride oral liq 20 mEq/15 mL UDC 40 MEQ PO (20:55)
--- NOTE | 2025-03-30 21:57 | PC.RESP ---
pox overnight pox placed on pt at this time, pt 99% on ra
[2025-03-30 22:32] LABS: NT Pro B Type Natriuretic Pept 277 pg/mL (0-125)
[2025-03-31] VITALS (40 sets, daily range): BP systolic 89–158; BP diastolic 49–94; PULSE 60–66; RESP 12–26; TEMP 36.2–36.6; O2SAT 91–99
--- NOTE | 2025-03-31 02:32 | PC.NURSE ---
Blood sugar Dr. Washington notified of trending blood sugars this shift; order received to hold dextrose fluids.
[2025-03-31 04:45] LABS: Hematocrit 39.9 % (36-47); Hemoglobin 13.50 g/dL (11.27-16.99); Mean Corpuscular HGB Conc 33.8 g/dL (30-55); Mean Corpuscular Hemoglobin 30.3 pg (27-33); Mean Corpuscular Volume 89.5 fl (85-98); Nucleated Red Blood Cells % 0 %; Platelet Count 149 10^3/cmm (157-399); Red Blood Count 4.46 10^6/uL (3.85-5.65); White Blood Count 5.94 10^3/uL (3.29-11.43)
--- NOTE | 2025-03-31 04:49 | PC.NURSE ---
Glucose Patient's glucose 60. [place] juice administered per protocol. Dr. Washington notified; order received to resume D5 at 30 ml/hr.
[2025-03-31 05:09] LABS: Alanine Aminotransferase 12 U/L (0-33); Albumin Level 3.8 g/dL (3.5-5.2); Alkaline Phosphatase 65 U/L (35-105); Anion Gap 12.8 (5-19); Aspartate Amino Transferase 17 U/L (0-32); Blood Urea Nitrogen 12 mg/dL (8-23); Calcium 9.5 mg/dL (8.5-10.5); Carbon Dioxide 28 mmol/L (22-29); Chloride 105 mmol/L (98-107); Creatinine Clr Calc Pharmacy 60.0496; Globulin 3.3 g/dL (1.3-4.6); Glucose 78 mg/dL (65-115); Magnesium 2.3 mg/dL (1.7-2.3); Osmolality Calculated 293 mOsm/kg (285-295); Potassium 3.8 mmol/L (3.5-5.1); Sodium 142 mmol/L (136-145); Total Protein 7.1 g/dL (6.6-8.7)
--- NOTE | 2025-03-31 06:30 | PC.NURSE ---
Glucose Patient's glucose 59 despite juice and d5 administration at 30 ml/hr. More orange juice administered, patient stated she would like oreos. Oreos gave to patient. Dr. Washington notified and order received to increase D5 administration to 50 ml/hr.
[2025-03-31] MEDS: HYDROcodone-acetaminophen 5-325 mg Tablet 1 TAB PO ×2 (08:39→15:24)
[2025-03-31] MEDS: glucagon 1 mg/mL KIT 1 mL IM (09:41)
[2025-03-31] MEDS: saliva stimulant spray 30 mL Btl 1 SPRAY MUCOUS MEM (10:33)
[2025-03-31] MEDS: lipase-protease-amylase Capsule 1 EACH PO ×3 (10:33→17:12)
--- NOTE | 2025-03-31 15:09 | PC.SOCIAL ---
IMM UPDATED IMM dated and initialed, copy given to patient and copy placed in chart.
--- NOTE | 2025-03-31 16:09 | PM.TDS ---
Transfer Summary Providers Date of Admission: 03/29/25 12:56 Date of Discharge/Transfer: 03/31/25 Attending Provider at Admission: Selwyn Cook MD Attending Provider at Transfer: Selwyn Cook MD Primary Care Provider: Rafal Kwok MD Transfer Plans: Anticipated date of transfer: 03/31/25. Receiving Facility: [facility]. Receiving Provider: Dr. Conklin. Diagnoses at Discharge Discharge Diagnosis 1. Hypoglycemia associated with diabetes: 2. IDDM (insulin dependent diabetes mellitus): 3. Paroxysmal atrial fibrillation: 4. Dyslipidemia: 5. Exocrine pancreatic insufficiency: 6. Pacemaker: 7. Hypertension: 8. Chronic diarrhea: 9. Exertional shortness of breath: Reason for Visit Reason for Visit Hypoglycemia Hospital Course Hospital Course Alpa Barrera is a 69 year old female with past medical history of atrial fibrillation/flutter, post pacemaker implantation, dyslipidemia, sleep apnea, CVA with mild carotid artery stenosis with chronic anticoagulation with Eliquis, pacemaker implantation was sent in for direct admission from endocrinology office today because of persistent recurrent symptomatic hypoglycemia. As per medical reconciliation patient takes Tresiba 22 units q. nightly and sliding scale insulin at home. She has not taken her insulin over a week. Blood sugar at the endocrine clinic was 40 with patient being symptomatic due to confusion. Dexcom data from 03/26 showed blood glucose under 70 the whole day with numbers dropping to 40 and 50 multiple times. Endocrinology office requested patient to be admitted for further evaluation and management. Examination patient lying comfortably in bed, had just come back from the bathroom back to her bed. Seems weak tired and out of breath. Patient states her weakness and tiredness has been getting worse for last 1 to 2 weeks worsening over last 1 week with concerns for difficulty in breathing which has been getting worse for last few months. She states she is never able to lie down flat for many years. She was diagnosed with sleep apnea but does not like to use BiPAP/CPAP as she feels claustrophobic. Denies any chest pain or palpitations. 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 States diarrhea has same for over 2 years. Patient was admitted to the hospital for evaluation and management of persistent recurrent symptomatic hypoglycemia. She was started on D5 infusion. Multiple blood work was done which showed low morning cortisol level of 2.4 with a normal cosyntropin stimulation test. As per discussion today with outpatient assistant media planner to recommend patient to be started on steroids. She was initially started on hydrocortisone 20 mg twice daily along with D5 infusion. She continued to have episodes of hypoglycemia after which dose of hydrocortisone was changed to 20 mg 3 times daily. 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 She was found to have elevated blood pressures for which her home dose of antihypertensives have been adjusted and currently she is on Imdur 30 mg twice daily, hydralazine 25 mg 3 times daily, losartan 100 mg daily along with amlodipine 10 mg daily. She did have episode of shortness of breath on exertion on admission which has been ongoing for last 1 to 2 months as per patient. Multiple etiologies including pneumonia, PE, CHF were ruled out. Echocardiogram was done which showed a normal EF with grade 1 diastolic function. She was started on nebulization treatment. It is believed symptoms of shortness of breath is most likely in setting of hypoglycemia leading to generalized weakness and decompensation. Given persistent recurrent hypoglycemia given being on steroids and IV infusion transfer to a tertiary center where inpatient endocrinology is available was sought. Patient has been accepted for further care admitted and transferred to hemodynamically stable condition. Physical Exam Narrative: General: In mild distress because shortness of breath, AO x 3, weak appearing HEENT: PERRLA, pupils bilaterally equal and reactive Chest: Normal vesicular breath sounds, no added sounds, equal good air entry bilaterally CVS: S1-S2 regular, no murmurs, no tachycardia, no gallops, no rubs Abdomen: Soft, nontender, no organomegaly, bowel sounds present Neuro: No focal deficits, no facial deformity, AO x3, power 5/5 in all limbs TS Data Studies Completed and Pending Pending at discharge Category Date Time Status Adrenocorticotropic Hormone Routine Lab 03/29/25 14:27 Received Blood Culture Stat Lab 03/29/25 17:25 Results C.Diff PCR (Lab) Routine Lab 03/30/25 13:34 Ordered Complete Blood Count w/Auto AM LABS Lab 04/01/25 04:00 Ordered Comprehensive Metabolic Panel AM LABS Lab 04/01/25 04:00 Ordered IGF1 [Insulin-Like Growth Factor 1] Routine Lab 03/29/25 16:40 Received Lactoferrin Routine Lab 03/30/25 13:34 Ordered Magnesium AM LABS Lab 04/01/25 04:00 Ordered OVA and Parasites, Conc and PE Routine Lab 03/30/25 13:34 Ordered Pancreatic Elastase-1 Stat Lab 03/31/25 09:37 Uncollected Phosphorus AM LABS Lab 04/01/25 04:00 Ordered Salmonella / Shigella / Campy Routine Lab 03/30/25 13:34 Ordered Completed Studies During Hospitalization Category Date Time Status CTA chest CT abdomen pelvis [CT Angio Chest + Abdomen Cat Scan 03/30/25 08:46 Completed Pelvis w/ contrast; 11913 + 38988] Routine XR chest 1V portable [id number] Routine Exams 03/29/25 13:44 Completed XR chest 1V portable [id number] Routine Exams 03/30/25 20:44 Completed CV. echo complete* [id number] Routine Ultrasound 03/29/25 16:02 Completed Laboratory Last Values WBC 5.94 10^3/uL (3.29-11.43) 03/31/25 04:20 RBC 4.46 10^6/uL (3.85-5.65) 03/31/25 04:20 Hgb 13.50 g/dL (11.27-16.99) 03/31/25 04:20 Hct 39.9 % (36-47) 03/31/25 04:20 MCV 89.5 fl (85-98) 03/31/25 04:20 MCH 30.3 pg (27-33) 03/31/25 04:20 MCHC 33.8 g/dL (30-55) 03/31/25 04:20 RDW 13.0 % (12.1-15.1) 03/31/25 04:20 Plt Count 149 10^3/cmm (157-399) L 03/31/25 04:20 MPV 11.7 fL (7.4-10.4) H 03/31/25 04:20 Neut % (Auto) 53.6 % 03/31/25 04:20 Lymph % (Auto) 36.7 % 03/31/25 04:20 Yates % (Auto) 5.4 % 03/31/25 04:20 Eos % (Auto) 3.5 % 03/31/25 04:20 Baso % (Auto) 0.5 % 03/31/25 04:20 Neut # (Auto) 3.18 10^3/uL (1.8-7.7) 03/31/25 04:20 Lymph # (Auto) 2.2 10^3/uL (0.8-4.8) 03/31/25 04:20 Yates # (Auto) 0.3 10^3/uL (0.2-0.9) 03/31/25 04:20 Eos # (Auto) 0.2 10^3/uL (0.0-0.8) 03/31/25 04:20 Baso # (Auto) 0.0 10^3/uL (0.0-0.1) 03/31/25 04:20 Nucleated RBC % (auto) 0 % 03/31/25 04:20 Nucleated RBCs # 0.0 /100WBC 03/31/25 04:20 D-Dimer 0.48 ug/mLFEU (0-0.59) 03/29/25 17:25 Sodium 142 mmol/L (136-145) 03/31/25 04:20 Potassium 3.8 mmol/L (3.5-5.1) 03/31/25 04:20 Chloride 105 mmol/L (98-107) 03/31/25 04:20 Carbon Dioxide 28 mmol/L (22-29) 03/31/25 04:20 Anion Gap 12.8 (5-19) 03/31/25 04:20 BUN 12 mg/dL (8-23) 03/31/25 04:20 Creatinine 0.9 mg/dL (0.5-0.9) 03/31/25 04:20 GFR Calculation Not Reportable 03/31/25 04:20 Glucose 78 mg/dL (65-115) 03/31/25 04:20 POC Glucose 101 mg/dL (70-110) 03/31/25 10:11 Estimat Average Glucose 117 03/29/25 14:27 Hemoglobin A1c 5.7 % (4.0-6.0) 03/29/25 14:27 Calculated Osmolality 293 mOsm/kg (285-295) 03/31/25 04:20 Lactic Acid 0.9 mmol/L (0.5-2.2) 03/29/25 14:27 Calcium 9.5 mg/dL (8.5-10.5) 03/31/25 04:20 Phosphorus 3.8 mg/dL (2.5-4.5) 03/31/25 04:20 Magnesium 2.3 mg/dL (1.7-2.3) 03/31/25 04:20 Iron 74 ug/dL (37-145) 03/29/25 14:27 TIBC 317 mcg/dl 03/29/25 14:27 % Saturation 23.3 % (20-50) 03/29/25 14:27 Unsat Iron Binding 243 ug/dL (112-347) 03/29/25 14:27 Total Bilirubin 0.5 mg/dL (0.15-1.2) 03/31/25 04:20 AST 17 U/L (0-32) 03/31/25 04:20 ALT 12 U/L (0-33) 03/31/25 04:20 Alkaline Phosphatase 65 U/L (35-105) 03/31/25 04:20 NT-Pro-B Natriuret Pep 277 pg/mL (0-125) H 03/30/25 21:30 Total Protein 7.1 g/dL (6.6-8.7) 03/31/25 04:20 Albumin 3.8 g/dL (3.5-5.2) 03/31/25 04:20 Globulin 3.3 g/dL (1.3-4.6) 03/31/25 04:20 Triglycerides 70 mg/dL (0-150) 03/30/25 03:14 Cholesterol 162 mg/dL (0-200) 03/30/25 03:14 LDL Cholesterol, Calc 95 mg/dL (50-129) 03/30/25 03:14 HDL Cholesterol 53 mg/dL (60-100) L 03/30/25 03:14 LDL/HDL Ratio 1.79 RATIO (0.00-3.22) 03/30/25 03:14 Cholesterol/HDL Ratio 3.06 mg/dL (0.0-4.40) 03/30/25 03:14 Vitamin B12 308 pg/mL (232-1245) 03/29/25 14:27 Folate 12.1 ng/mL (4.8-37.3) 03/30/25 03:14 Procalcitonin 0.02 ng/mL (0-0.5) 03/30/25 03:14 TSH 2.71 uIU/mL (0.27-4.20) 03/29/25 14:27 Random Cortisol 2.29 ug/dL (2.47-19.5) L 03/30/25 03:14 Cortisol Response 03/29/25 16:40 Urine Color Yellow (Yellow) 03/30/25 06:15 Urine Appearance Clear (CLEAR) 03/30/25 06:15 Urine pH 7.0 (5-7) 03/30/25 06:15 Ur Specific [place] 1.008 (1.005-1.030) 03/30/25 06:15 Urine Protein Negative (Negative) 03/30/25 06:15 Urine Glucose (UA) Negative (Normal) 03/30/25 06:15 Urine Ketones Negative (Negative) 03/30/25 06:15 Urine Blood Negative (Negative) 03/30/25 06:15 Urine Nitrate Negative (Negative) 03/30/25 06:15 Urine Bilirubin Negative (Negative) 03/30/25 06:15 Urine Urobilinogen 0.2 mg/dL (Negative) 03/30/25 06:15 Ur Leukocyte Esterase Trace (Negative) A 03/30/25 06:15 Urine RBC 0-2 /hpf (0-2) 03/30/25 06:15 Urine WBC 0-5 /hpf (0-5) 03/30/25 06:15 Ur Squamous Epith Cells 0-5 /hpf (0-5) 03/30/25 06:15 Amorphous Sediment Not Reportable 03/30/25 06:15 Urine Bacteria None seen /hpf (NONE) 03/30/25 06:15 Hyaline Casts 0.40 /lpf 03/30/25 06:15 Urine Opiates Screen Negative ng/mL (Negative) 03/30/25 06:15 Ur Barbiturates Screen Negative ng/mL (Negative) 03/30/25 06:15 Ur Phencyclidine Scrn Negative ng/mL (Negative) 03/30/25 06:15 Ur Amphetamines Screen Negative ng/mL (Negative) 03/30/25 06:15 U Benzodiazepines Scrn Negative ng/mL (Negative) 03/30/25 06:15 Urine Cocaine Screen Negative ng/mL (Negative) 03/30/25 06:15 U Marijuana (THC) Screen Negative ng/mL (Negative) 03/30/25 06:15 Ethyl Alcohol < 10 mg/dL (0-10) 03/29/25 14:27 Radiology Impressions Chest/Abdomen/Pelvis CT 03/30/25 08:46 IMPRESSION: 1. No pulmonary embolism. 2. No pneumonia or mediastinal/hilar adenopathy. 3. No GI tract obstruction. 4. Prior appendectomy. 5. Prior cholecystectomy. 6. No ascites or adenopathy in the abdomen or pelvis. Chest X-Ray 03/30/25 20:44 IMPRESSION: No definite acute abnormality. Recent Clincial Data Last Vital Signs Temp 97.8 F 03/31/25 13:00 Pulse 60 03/31/25 14:00 Resp 18 03/31/25 13:49 BP 133/76 03/31/25 13:00 Pulse Ox 94 03/31/25 13:49 O2 Del Method Room Air 03/31/25 13:49 Vital Signs Temp Pulse Resp BP Pulse Ox O2 Del Method O2 Del Method 03/31/25 14:00 60 03/31/25 13:49 61 18 94 Room Air 03/31/25 13:00 97.8 F 61 18 133/76 96 Room Air 03/31/25 12:30 61 19 H 132/73 93 Room Air 03/31/25 12:00 60 17 108/63 92 Room Air 03/31/25 11:30 60 14 108/60 93 Room Air 03/31/25 11:00 60 19 H 108/60 92 Room Air 03/31/25 10:30 60 26 H 89/60 92 Room Air 03/31/25 10:00 60 16 111/67 92 Room Air 03/31/25 09:30 61 13 111/67 95 Room Air 03/31/25 09:00 60 14 121/66 95 Room Air 03/31/25 08:30 60 17 118/71 95 Room Air 03/31/25 08:00 60 16 114/57 94 Room Air 03/31/25 07:37 61 18 95 Room Air 03/31/25 07:30 64 18 92/59 93 Room Air 03/31/25 07:00 60 17 112/66 92 03/31/25 06:30 60 18 118/71 94 03/31/25 06:00 61 20 H 117/85 96 03/31/25 05:57 117/85 03/31/25 05:50 61 03/31/25 05:30 66 17 123/79 96 03/31/25 05:00 65 14 95 03/31/25 04:41 63 94 Room Air 03/31/25 04:30 98 F 60 20 H 139/76 94 Room Air Intake & Output/Weight 03/29/25 03/30/25 03/31/25 04/01/25 06:59 06:59 06:59 06:59 Intake Total 373.333 / 446.094 7222.667 / 3205.667 1068.333 / 1068.333 Output Total 1300 / 1300 Balance 373.333 / 985.572 3251.667 / 3531.566 8939.333 / 1068.333 Weight 94.166 kg 89.993 kg Vitals Last Vital Signs Temp 97.8 F 03/31/25 13:00 Pulse 60 03/31/25 14:00 Resp 18 03/31/25 13:49 BP 133/76 03/31/25 13:00 Pulse Ox 94 03/31/25 13:49 O2 Del Method Room Air 03/31/25 13:49 TS Medications Medications Acetaminophen (Acetaminophen 325 Mg Tablet) 650 mg PO Q6H PRN PRN Reason: Mild/Mod Pain Or Temp >/= 101 Last Admin: 03/30/25 02:08 Dose: 650 mg Hydrocodone Bitart/Acetaminophen (Hydrocodone-Acetaminophen 5-325 Mg Tablet) 1 tab PO Q8H PRN PRN Reason: PAIN Last Admin: 03/31/25 15:24 Dose: 1 tab Amitriptyline HCl (Amitriptyline 25 Mg Tablet) 75 mg PO BEDTIME [facility] Last Admin: 03/30/25 21:55 Dose: 75 mg Amlodipine Besylate (Amlodipine 10 Mg Tablet) 10 mg PO DAILY [facility] Last Admin: 03/31/25 08:39 Dose: 10 mg Lipase/Protease/Amylase (Rljlsp-Jzvhbyhg-Umewlld Capsule) 1 each PO TIDWM [facility] Last Admin: 03/31/25 12:16 Dose: 1 each Apixaban (Apixaban 5 Mg Tablet) 5 mg PO BID [facility] Last Admin: 03/31/25 08:39 Dose: 5 mg Docusate Sodium (Docusate Sodium 100 Mg Capsule) 100 mg PO BID [facility] Last Admin: 03/31/25 08:39 Dose: 100 mg Famotidine (Famotidine 20 Mg Tablet) 20 mg PO BID [facility] Last Admin: 03/31/25 08:39 Dose: 20 mg Hydralazine HCl (Hydralazine 20 Mg/Ml Inj 1 Ml) 10 mg IVP Q4H PRN PRN Reason: SBP More than 160 mmhg Last Admin: 03/29/25 15:04 Dose: 10 mg Hydralazine HCl (Hydralazine 25 Mg Tablet) 25 mg PO TID [facility] Last Admin: 03/31/25 15:25 Dose: 25 mg Hydrocortisone (Hydrocortisone 10 Mg Tablet) 20 mg PO TID [facility] Last Admin: 03/31/25 15:25 Dose: 20 mg Dextrose (D5w) 500 mls @ 0 mls/hr IV ONCE PRN; Protocol PRN Reason: Adult Acute Hypoglycemia Prot Dextrose (D10w) 125 mls @ 750 mls/hr IV PRN PRN; Protocol PRN Reason: Adult Acute Hypoglycemia Nursing Protocol Dextrose (D10w) 250 mls @ 1,000 mls/hr IV PRN PRN; Protocol PRN Reason: Adult Acute Hypoglycemia Nursing Protocol Dextrose (D5w) 1,000 mls @ 50 mls/hr IV .Q20H [facility] Last Admin: 03/31/25 10:34 Dose: 50 mls/hr Ipratropium Tatum (Ipratropium 0.5 Mg/2.5 Ml Neb) 0.5 mg INHALATION Q6H.RESP [facility] Last Admin: 03/31/25 13:48 Dose: 0.5 mg Isosorbide Mononitrate (Isosorbide Mononitrate Er 30 Mg Tablet) 30 mg PO BID [facility] Last Admin: 03/31/25 08:39 Dose: 30 mg Lactulose (Lactulose Oral Liq 20 Gm/30 Ml Udc) 10 gm PO DAILY PRN; Protocol PRN Reason: Constipation (see protocol) Levalbuterol HCl (Levalbuterol 0.63 Mg/3 Ml Neb) 0.63 mg INHALATION Q6H.RESP [facility] Last Admin: 03/31/25 13:48 Dose: 0.63 mg Losartan Potassium (Losartan 50 Mg Tablet) 100 mg PO QAM [facility] Last Admin: 03/31/25 05:57 Dose: 100 mg Magnesium Hydroxide (Magnesium Hydroxide 30 Ml Udc) 30 ml PO DAILY PRN; Protocol PRN Reason: Constipation (see protocol) Morphine Sulfate (Morphine 4 Mg/Ml Sdv 1 Ml) 2 mg IVP Q4H PRN PRN Reason: SEVERE PAIN Ondansetron HCl (Ondansetron 2 Mg/Ml Sdv 2 Ml) 4 mg IVP Q6H PRN PRN Reason: vomiting, or N/V if npo Saliva Substitute (Saliva Stimulant [place] 30 Ml Btl) 1 spray MUCOUS MEM PRN PRN PRN Reason: DRY MOUTH Last Admin: 03/31/25 10:33 Dose: 1 spray Sotalol HCl (Sotalol 80 Mg Tablet) 80 mg PO BID MERRITT On Hold: 03/31/25 09:34 Last Admin: 03/31/25 08:39 Dose: 80 mg Topiramate (Topiramate 100 Mg Tablet) 100 mg PO DAILY [facility] Last Admin: 03/31/25 08:39 Dose: 100 mg Discontinued Medications Cosyntropin (Cosyntropin 0.25 Mg Sdv) 0.25 mg IVP ONCE ONE Stop: 03/29/25 16:01 Last Admin: 03/29/25 16:53 Dose: 0.25 mg Furosemide (Furosemide 40 Mg Tablet) 40 mg PO ONCE ONE Stop: 03/30/25 13:26 Last Admin: 03/30/25 15:11 Dose: 40 mg Furosemide (Furosemide 10 Mg/Ml Sdv 4ml) 40 mg IVP ONCE ONE Stop: 03/30/25 20:42 Last Admin: 03/30/25 20:55 Dose: 40 mg Glucagon (Glucagon 1 Mg/Ml Kit 1 Ml) 1 mg IM ONCE PRN; Protocol PRN Reason: Adult Acute Hypoglycemia Nursing Prot. Last Admin: 03/31/25 09:41 Dose: 1 mg Heparin Sodium (Porcine) (Heparin 5,000 Unit/Ml Inj 1 Ml) 5,000 unit SUBCUT Q12H [facility] Last Admin: 03/29/25 13:56 Dose: 5,000 unit Hydrochlorothiazide (Hydrochlorothiazide 25 Mg Tablet) 12.5 mg PO QAM MERRITT Hydrocortisone (Hydrocortisone 10 Mg Tablet) 20 mg PO BID [facility] Last Admin: 03/31/25 08:39 Dose: 20 mg Dextrose (D5w) 1,000 mls @ 50 mls/hr IV .Q20H [facility] Last Infusion: 03/29/25 19:10 Dose: Infused Dextrose (D10w) 1,000 mls @ 50 mls/hr IV .Q20H [facility] Last Admin: 03/29/25 16:52 Dose: 50 mls/hr Iohexol (Iohexol 350 Mg/Ml 500 Ml Btl (Per Ml)) 0 ml IV ONCE ONE Stop: 03/30/25 09:42 Last Admin: 03/30/25 09:41 Dose: 100 ml Isosorbide Mononitrate (Isosorbide Mononitrate Er 30 Mg Tablet) 30 mg PO DAILY MERRITT Isosorbide Mononitrate (Isosorbide Mononitrate Er 30 Mg Tablet) 30 mg PO 5XD MERRITT Isosorbide Mononitrate (Isosorbide Mononitrate Er 30 Mg Tablet) 30 mg PO DAILY MERRITT Losartan Potassium (Losartan 50 Mg Tablet) 50 mg PO QAM [facility]ERRITT Potassium Chloride (Potassium Chloride Oral Liq 20 Meq/15 Ml Udc) 40 meq PO ONCE ONE Stop: 03/30/25 20:43 Last Admin: 03/30/25 20:55 Dose: 40 meq Allergies Alpha-Gal ([place]qua-Qepec-0,3-Gala Allergy (Severe, Verified 10/04/24 13:21) ALGY-Hives Penicillins Allergy (Intermediate, Verified 10/04/24 13:21) hives tramadol Adverse Reaction (Verified 10/04/24 13:21) possibly lowered seizure threshold Home Medications insulin aspart U-100 100 unit/mL (3 mL) subcutaneous pen (Novolog FlexPen U-100 Insulin aspart) See Rx Instructions .Route .COMPLEX 06/24/23 [History Confirmed 03/29/25] insulin degludec 100 unit/mL (3 mL) subcutaneous pen (Tresiba FlexTouch U-100 insulin) 22 unit SUBCUT BEDTIME 06/24/23 [History Confirmed 03/29/25] nitroglycerin 0.4 mg sublingual tablet (Nitrostat) 0.4 mg sublingual Q5M PRN Chest Pain 06/24/23 [History Confirmed 03/29/25] olmesartan 20 mg-hydrochlorothiazide 12.5 mg tablet 1 tab PO QAM 06/24/23 [History Confirmed 03/29/25] amitriptyline 75 mg tablet 75 mg PO DAILY 07/06/24 [History Confirmed 03/29/25] colestipol 1 gram tablet 1 g PO BID 11/22/24 [History Confirmed 03/29/25] folic acid 1 mg tablet 1 mg PO DAILY 11/22/24 [History Confirmed 03/29/25] hydrocodone 5 mg-acetaminophen 325 mg tablet 1 tab PO Q8H PRN pain #5 tabs 11/22/24 [Rx Confirmed 03/29/25] topiramate 100 mg tablet 100 mg PO DAILY 11/22/24 [History Confirmed 03/29/25] amlodipine 10 mg tablet 10 mg PO DAILY #90 tabs 12/19/24 [Rx Confirmed 03/29/25] Diabetic shoes and Inserts #1 ea 12/27/24 [Rx Confirmed 03/29/25] galcanezumab-gnlm 120 mg/mL subcutaneous pen injector (Emgality Pen) See Rx Instructions .Route .COMPLEX #1 mL 01/03/25 [Rx Confirmed 03/29/25] apixaban 5 mg tablet (Eliquis) 5 mg PO BID 03/29/25 [History Confirmed 03/29/25] blood-glucose sensor (Dexcom G7 Sensor device) #3 ea 03/29/25 [Rx Confirmed 03/29/25] isosorbide mononitrate 30 mg tablet,extended release 24 hr 30 mg PO DAILY 03/29/25 [History Confirmed 03/29/25] sotalol 80 mg tablet 80 mg PO BID 03/29/25 [History Confirmed 03/29/25] Discharge Plan Discharge Patient Disposition: Home Condition: Stable Prescriptions: No Action amitriptyline 75 mg tablet 75 mg PO DAILY isosorbide mononitrate 30 mg tablet extended release 24 hr 30 mg PO DAILY (DME) Dexcom G7 Sensor Device See Rx Instructions .Route Qty: 3 0RF Rx Instructions: As directed amlodipine 10 mg tablet 10 mg PO DAILY Qty: 90 3RF (DME) Diabetic shoes and Inserts See Rx Instructions .Route .MEDSUPPLY Qty: 1 0RF Rx Instructions: As directed [place]oe [place] Emgality Pen 120 mg/mL pen injector See Rx Instructions .ROUTE .COMPLEX Qty: 1 6RF Dose Instruction: Inject 120mg subcutaneously ONCE monthly Rx Instructions: Inject 120mg subcutaneously ONCE monthly olmesartan-hydrochlorothiazide 20-12.5 mg tablet 1 tab PO QAM nitroglycerin [Nitrostat] 0.4 mg Tablet, Sublingual 0.4 mg SUBLINGUAL Q5M PRN (Reason: Chest Pain) Rx Instructions: do not exceed 3 doses per episode insulin aspart U-100 [Novolog FlexPen U-100 Insulin] 100 unit/mL (3 mL) insulin pen See Rx Instructions .ROUTE .COMPLEX Rx Instructions: sliding scale subcutaneously up to qid as directed as needed insulin degludec [Tresiba FlexTouch U-100] 100 unit/mL (3 mL) insulin pen 22 unit SUBCUT BEDTIME topiramate 100 mg tablet 100 mg PO DAILY Rx Instructions: TAKE 1 TABLET BY MOUTH EVERY DAY folic acid 1 mg tablet 1 mg PO DAILY colestipol 1 gram tablet 1 g PO BID hydrocodone-acetaminophen 5-325 mg tablet 1 tab PO Q8H PRN (Reason: pain) Qty: 5 0RF sotalol 80 mg tablet 80 mg PO BID Rx Instructions: TAKE 1 TABLET BY MOUTH TWICE DAILY Eliquis 5 mg tablet 5 mg PO BID Rx Instructions: TAKE 1 TABLET BY MOUTH TWICE DAILY Patient Instructions: Opioid Safety, Patient Portal & Annabelle Instructions Transfer Attestations Time Spent in Transfer Care: greater than 30 min Specific Discharge Activities: educating patient, educating and/or supporting family/caregiver, discussing with pcp/other providers, discussing with renal case manager/social workers/dc planners, documenting/other paperwork and evaluating patient/reviewing data Status at Transfer: Cognitive status at transfer: cognitively intact; Behavioral status at transfer: cooperative; Functional status at transfer: uses cane/walker; Overall status at transfer: patient is not back to baseline Quality Metrics Clinical Quality Measures [ No reported AMI, CVA or VTE this stay] Coding Level of Care Code 94031 Total time (in minutes) for Discharge: 70 Diagnoses Hypoglycemia associated with diabetes E11.649 IDDM (insulin dependent diabetes mellitus) Paroxysmal atrial fibrillation I48.0 Atrial fibrillation type: paroxysmal Dyslipidemia E78.5 Exocrine pancreatic insufficiency K86.81 Pacemaker Z95.0 Hypertension I10 Chronic diarrhea K52.9 Exertional shortness of breath R06.02
--- NOTE | 2025-03-31 18:10 | PC.NURSE ---
Report called to [facility]tran in [place], [place]. Report given to Morales Grayson RN. All questions answered.
--- NOTE | 2025-03-31 18:12 | PC.NURSE ---
Called [facility] for transport. Unknown ETA.
--- NOTE | 2025-03-31 18:14 | PC.NURSE ---
Shift summary: Pt has rested in the bed throughout the shift. She is more fatigued today. She states she doesn't feel the best. VSS. Afebrile. She had an hypoglycemic episode an hour after consuming 755 of her breakfast. Blood sugar of 56. One mg of Glucagon admin. Her blood sugar has been 100-110mg/dl the rest of the shift. Accu checks were changed to q 4 hr. While pt has been resting with her eyes closed, this nurse has checked her levels on her [place], which is at bedside. She has ate at least 75% of her meals. NO BM noted today. She has nly urianted one this shift, 400 ml of dark yellow urine noted. She has reported a headache again today, Hydrocodone admin twice this shift, it gives her some relief but headache remains.
--- NOTE | 2025-03-31 19:13 | PC.NURSE ---
Mr Dann Barrera and [facility], both called and notified pt is exiting this facility and on her way. Further update provided to [facility].
== END 2025-03-31 19:15 | disposition short-term general hospital (02) | DRG 639 ==
PROVIDERS: Family Medicine; Admitting Provider Student in an Organized Health Care Education/Training Program; PCP Family Medicine; Visit Provider Student in an Organized Health Care Education/Training Program
DX: E11.649 Type 2 diabetes mellitus with hypoglycemia without coma (principal); I48.0 Paroxysmal atrial fibrillation; E78.5 Hyperlipidemia, unspecified; K86.81 Exocrine pancreatic insufficiency; I11.0 Hypertensive heart disease with heart failure; K52.9 Noninfective gastroenteritis and colitis, unspecified; R06.02 Shortness of breath; I65.29 Occlusion and stenosis of unspecified carotid artery; R06.81 Apnea, not elsewhere classified; Z79.4 Long term (current) use of insulin; Z79.01 Long term (current) use of anticoagulants; Z95.0 Presence of cardiac pacemaker; Z86.73 Personal history of transient ischemic attack (TIA), and cerebral infarction without residual deficits
CPT/HCPCS: 36415; 36416; 71045; 71275; 74177; 80053; 80061; 80306; 80307; 81001; 82024; 82533; 82607; 82746; 82962; 83036; 83540; 83550; 83605; 83735; 83880; 84100; 84145; 84305; 84443; 85025; 85378; 87040; 93005; 93306; 94640; 94664; 96372; 99205; G0379; J0360; J0834; J1610; J1644; J1938; J7070; J7614; J7644; J8499; J9999

== ENCOUNTER → 2025-04-17 14:42 | Outpatient (BNVA) | payer MEDICARE, SELFPAY | PROVIDERS: PCP Family Medicine; Visit Provider Internal Medicine Cardiovascular Disease | DX: I48.0 Paroxysmal atrial fibrillation (principal); Z79.01 Long term (current) use of anticoagulants; E11.9 Type 2 diabetes mellitus without complications; Z79.4 Long term (current) use of insulin; E78.5 Hyperlipidemia, unspecified; I65.29 Occlusion and stenosis of unspecified carotid artery; I10 Essential (primary) hypertension; Z45.018 Encounter for adjustment and management of other part of cardiac pacemaker | CPT/HCPCS: 99214 ==

== ENCOUNTER → 2025-04-21 09:37 | Outpatient (BNVA) | payer MEDICARE, SELFPAY | PROVIDERS: PCP Family Medicine; Visit Provider Internal Medicine | DX: E11.9 Type 2 diabetes mellitus without complications (principal); E16.2 Hypoglycemia, unspecified | CPT/HCPCS: 99214 ==

== ENCOUNTER → 2025-05-31 10:34 | Outpatient (BNVA) | payer MEDICARE, SELFPAY | PROVIDERS: PCP Family Medicine; Visit Provider Internal Medicine | DX: E11.649 Type 2 diabetes mellitus with hypoglycemia without coma (principal) | CPT/HCPCS: 99214 ==

== ENCOUNTER 2025-06-03 14:57 | Emergency (ER) | payer MEDICARE, SELFPAY ==
[2025-06-03 14:59] VITALS: BP 124/75; PULSE 101; RESP 18; TEMP 36.7; O2SAT 97
--- OUTSIDE RECORDS SUMMARY | 2025-06-03 15:03 | XMS_ITS | Encounter Summary ---
Author Organization [facility] Address [address] [place] [address] Care Team Providers Care Tenoner Operator Name Role Phone Rafal Kwok MD Primary Care Provider [phone] Encounter Details Date Type Department Care Team (Latest Contact Info) Description 12/03/1998 Outpatient Historical HIS [facility] Kevin Mabry MD [address] [place] [address] Chest pain, unspecified (Primary Dx); Backache, unspecified; Nonallopathic lesion of cervical region, not elsewhere classified; Nonallopathic lesion of thoracic region, not elsewhere classified Social History Tobacco Use Types Packs/Day Years Used Date Smoking Tobacco: Never Assessed Comments Unknown Sex and Gender Information Value Date Recorded Sex Assigned at Not on file 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
--- OUTSIDE RECORDS SUMMARY | 2025-06-03 15:03 | XMS_ITS | Encounter Summary ---
Author Organization [facility] Address [address] [place] [address] Care Team Providers Care Warehouser Name Role Phone Rafal Kwok MD Primary Care Provider [phone] Encounter Details Date Type Department Care Team (Latest Contact Info) Description 09/23/2001 Outpatient Historical HIS [facility] eKvin Mabry MD [address] [place] [address] Sprain thoracic region (Primary Dx) Social History Tobacco Use Types Packs/Day Years Used Date Smoking Tobacco: Never Assessed Comments Unknown Sex and Gender Information Value Date Recorded Sex Assigned at Not on file 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
--- OUTSIDE RECORDS SUMMARY | 2025-06-03 15:03 | XMS_ITS | Clinical Summary ---
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
--- OUTSIDE RECORDS SUMMARY | 2025-06-03 15:03 | XMS_ITS | Encounter Summary ---
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
--- OUTSIDE RECORDS SUMMARY | 2025-06-03 15:03 | XMS_ITS | Encounter Summary ---
Author Organization [facility] Address [address] [place] [address] Care Team Providers Care Tray Filler Name Role Phone Rafal Kwok MD Primary Care Provider [phone] Encounter Details Date Type Department Care Team (Latest Contact Info) Description 07/07/2001 Outpatient Historical HIS [facility] BryceMark MD [address] [address] MASTODYNIA (Primary Dx) Social History Tobacco Use Types Packs/Day Years Used Date Smoking Tobacco: Never Assessed Comments Unknown Sex and Gender Information Value Date Recorded Sex Assigned at Not on file 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
--- OUTSIDE RECORDS SUMMARY | 2025-06-03 15:03 | XMS_ITS | Encounter Summary ---
Author Organization [facility] Address [address] [place] [address] Care Team Providers Care Sponge Hooker Name Role Phone Rafal Kwok MD Primary Care Provider [phone] Encounter Details Date Type Department Care Team (Late st Contact Info) Description 12/25/1998 Outpatient Historical HIS [facility] Wendy Mederos MD [address] [place] [address] Hypertrophy of breast (Primary Dx) Social History Tobacco Use Types Packs/Day Years Used Date Smoking Tobacco: Never Assessed Comments Unknown Sex and Gender Information Value Date Recorded Sex Assigned at Not on file 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
--- OUTSIDE RECORDS SUMMARY | 2025-06-03 15:03 | XMS_ITS | Clinical Summary ---
Author Organization [facility] Address [address] [place] [address] Phone Care Team Providers Care Foam Dispenser Name Role Phone Rafal Kwok MD Primary Care Provider [phone] Allergies Active Allergy Reactions Criticality Noted Date Comments Alpha-Gal (Wdelpkapk-Eeyas-9,3-Galactose) Diarrhea,Itching Low 11/02/2024 Cromolyn Hives High 12/05/2024 [...] daily. 4 Active cyanocobalamin/ folic acid (vitamin J78-afauj acid) 1,000-400 mcg Lozenge dissolve 2 lozenges under the tongue once daily 4 Active topiramate (TOPAMAX) 50 mg tablet Take 50 mg by mouth daily. Active True Metrix Glucose Test Strip Strip USE ONE strip THREE TIMES DAILY 5 Active colestipoL (COLESTID) 1 gram tabletIndicatio ns:Allergy to alpha-gal,Bile salt-induced diarrhea TAKE 1 TABLET BY MOUTH TWICE DAILY 60 Tablet 6 5 Active Dexcom G7 Sensor Device by See Admin Instructions route. 5 Active acarbose (PRECOSE) 25 mg tablet Take 1 Tablet by mouth 3 times daily. 5 Active Hospital, Clinic, or Other Facility [...] Encounters Date Type Department Care Team Description 05/16/2025 11:30 AM CDT Office Visit [facility] G[facility]- [place] 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 [address] [facility] [facility] [address] [place] [address] Sally Valverde MD SSS (sick sinus syndrome) (CMS/HCC) (Primary Dx) 05/02/2025 External Device Data STL ABSTRACTION Provider, Abstract 04/25/2025 External Device Data STL ABSTRACTION Provider, Abstract 04/12/2025 External Device Data STL ABSTRACTION Provider, Abstract [...] drink = 0.6 oz pur e alcohol) Feeling Safe Answer Date Recorded Are you in a relationship wi th someone who hurts you emotionally and/or physically? No 11/02/2024 Food Insecurity Answer Date Recorded Patient needs follow up regardin 12/20/2024 Transportation Needs Answer Date Record ed Patient needs follow up regardin 12/20/2024 Housing Stability Answer Date Recorded Social/Environmental Concerns No concerns Utility Needs Answer Date Recorded Patient needs follow up regardin 12/20/2024 Comments No Sex and Gender Information Value Date Recorded Sex Assigned at Not on file Legal Sex Female 11:35 AM CELLAR PUMPER Gender Identity Not on file Sexual Orientation Not on file Last Filed Vital Signs Vital Sign Reading Time Taken Comments Blood Pressure 144/74 05/16/2025 11:12 AM CDT Pulse 89 05/16/2025 11:12 AM CDT Temperature 36.1 C (97 F) 11/03/2024 5:01 PM CDT Respiratory Rate 20 11/03/2024 6:00 PM CDT Oxygen Saturation 93% 11/03/2024 6:00 PM CDT Inhaled Oxygen Concentration - - Weight 93 kg (205 lb) 05/16/2025 11:12 AM CDT Height 154.9 cm (5' 1 ) 05/16/2025 11:12 AM CDT Body Mass Index 38.73 05/16/2025 11:12 AM CDT Plan of Treatment Upcoming Encounters Date Type Department Care Team (Late st Contact Info) Description 06/30/2025 11:00 AM CELLAR PUMPER Office Visit [facility] [address] [place] [address] Sally Valverde MD [address] [place] [address] Sterling Ott CRNP [address] [facility] [address], [address] [place] [address] 06/30/2025 2:00 PM CELLAR PUMPER Office Visit [facility] Opt[facility] [address] [place] [address] 06/30/2025 2:15 PM CELLAR PUMPER Office Visit [facility] [address] [place] [address] Waldo Singleton, CK [address] [place] [address] 05/17/2026 11:00 AM CDT Office Visit [facility] Gastroenterology- [place] [address] [place] [address] Gunjan Singleton PA-C [address] [place] [address] Health Maintenance Due Date Last Done Comments [...] (2 of 2 - PCV) 06/28/2020 06/28/2019 INFLUENZA VACCINE (#1) 2025 , 06/28/2019, 05/24/2017 DIABETES HBA1C Q 6 MONTHS 04/19/2025 10/20/2024, 08/2023 COVID-19 Vaccine ( - 2024-2 6 season) 2025 05/24/2021, 04/24/2021, 03/27/2021 DIABETES ANNUAL RETINAL EXAM 06/29/202501/2024, 06/29/2024, 06/29/2024, Additional history exists DTAP/TDAP/TD VACCINES (2 - T d or Tdap) 05/24/2027 05/24/2017 COLORECTAL SCREENING 02/10/2034 02/11/2024, 02/11/2024, 02/11/2024 Colorectal Cancer Screening 02/10/2034 Medical Devices Implanted Type Area Outpatient Physical Therapist Device Identifier Shelf Expiration Date Model / Serial / Lot Lens Io Kimberly 1pc 25.0 [id number] - [id number] Implanted:Qty: 1 on 02/21/2021 by Samir Turner MD at [facility] Left: Eye [employer] 10/28/2024 [id number] / [id number] / N/A Lens Iol Kimberly Lanza 24.5 [id number] - [id number] Implanted:Qty: 1 on 03/07/2021 by Samir Turner MD at [facility] Right: Eye [employer] 12/31/2023 [id number] / [id number] / Lead Capsurefix Novus Mri 52cm Endocardial Pacing 5076-52 - [id number] Implanted:Qty: 1 on 11/03/2024 by Sally Valverde MD at [facility] Lead Left: Chest Wall [employer] BULK [employer]Y [id number] 08/10/2026 5076-52 / [id number] 6V / Lead Capsurefix Novus Mri 58cm Endocardial Pacing 5077 5076-58 - [id number] Implanted:Qty: 1 on 11/03/2024 by Sally Valverde MD at [facility] Lead Left: Chest Wall [employer] BULK [employer] [id number] 07/28/2026 5076-58 / [id number] 2V / Pacemaker Howell Xt Dr Mri Ip Dual Chmbr Surescan [id number] - [id number] Implanted:Qty: 1 on 11/03/2024 by Sally Valverde MD at [facility] Pacemaker Left: Chest Wall [employer] - BULK [employer]Y [id number] 03/06/2026 [id number] / [id number] / Procedures Procedure Name Priority Date/Time Associated Diagnosis Comments MA REM INTERROG PM/LDLS PM/IDS <90 D TECH REVIEW Routine 05/16/2025 5:27 AM CDT SSS (sick sinus syndrome) (CMS/HCC) MA REM INTERROG PM/LDLS PM <90 D PHYS/QHP Routine 05/16/2025 5:27 AM CDT SSS (sick sinus syndrome) (CMS/HCC) HEMOGLOBIN A1C Routine 02/22/2024 3:08 PM CDT COLONOSCOPY REPORT 02/11/2024 11 :42 AM CDT from Last 3 Months or Most Recently Relevant to Health Maintenance Results * MA REM INTERROG PM/LDLS PM <90 D PHYS/QHP, MA REM INTERROG PM/LDLS PM/IDS <90 D TECH REVIEW (05/16/2025 5:27 AM CDT) 05/16/2025 5:27 AM CDT Narrative INTERFACE SYSTEM - 05/16/2025 4:10 PM CDT Remote Transmission Report Date of Procedure: May 16, 2025 Events: Since 04/17/2025 3 nonsustained high ventricular rate episodes Comments: Carelink remote transmission reveals normal dual chamber pacemaker function with stable available threshold and impedance trends. Presenting EGM indicates atrial pacing with intact AV conduction 60 bpm. Follow-up with the Cardiology - EP Office on 06/30/2025. See attached report for details. Procedure Note Provider, Historical - 05/16/2025 Remote Transmission Report Date of Procedure: May 16, 2025 Events: Since 04/17/2025 3 nonsustained high ventricular rate episodes Comments: Carelink remote transmission reveals normal dual chamber pacemakerfunction with stable available threshold and impedance trends. Presenting EGM indicates atrial pacing with intact AV conduction 60 bpm. Follow-up with the Cardiology - EP Office on 06/30/2025. See attached report for details. us Sally [...] Seymour MD - 02/11/2024 11:42 AM CDT [facility] Patient Name: Alpa Barrera Procedure Date: 02/11/2024 Date of : 1955 Admit Type: Outpatient Age: 68 Attending MD: Darin Seymour MD, Procedure: Colonoscopy Indications: Diarrhea Providers: Darin Seymour MD Referring MD: Medicines: Monitored Anesthesia Care Complications: No immediate complications. Estimated blood loss: Minimal. Procedure: Pre-Anesthesia Assessment: - [place] Protocol: - Pre-procedure Verification: Prior to the [...] verified by the physician, the nurse, the regional program manager and the fire protection engineering technician in the endoscopy suite. - Prior [...] Out: 11:26:57 AM [address] [place], [place] Darin Seymour MD GI PROCEDURE ORDERABLES Shauna l Result from Last 3 Months or Most Recently Relevant to Health Maintenance Insurance MEDICAID [place] [facility] Advance Directives For more information, please contact: [phone] * Full Code (Latest Code Status on [...] 11:35 AM 03/07/2021 3:48 PM Care Teams Foam Dispenser Relationship Specialty Start Date End Date Rafal Kwok MD 5 [facility] 1 [place] [address] PCP - General 12/05/20
--- OUTSIDE RECORDS SUMMARY | 2025-06-03 15:03 | XMS_ITS | Encounter Summary ---
Author Organization [facility] Address [address] [place] [address] Care Team Providers Care Staff Rn Name Role Phone Rafal Kwok MD Primary Care Provider [phone] Encounter Details Date Type Department Care Team (Late st Contact Info) Description 11/12/2009 Ancillary Orders 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 MATERIALS USED: 5, 6, 5 Omani sheaths to the left femoral vein for quadruple, octapolar and quadruple electrode catheter to electrically map HRA, HIS bundle and RV apex. 7 Omani sheath to the right internal jugular for the Orbitor electrode catheter to map coronary sinus. 7 Omani sheath to the right femoral vein, later [...] areas. Baseline measurements as follows: QTC 417, KS 165, QRS 95, QT 430, AH 105, [...] ablation, the patient's baseline was as follows: KS 156, QRS 104, QT 395, AH 100 [...] seconds. Final baseline on isoproterenol as follows: KS 160, QRS 78, QT 374, AH 80, HV 55, with cycle length of 900 at 5 milliseconds. FINAL SUMMARY: 1. RV outflow tract premature ventricular contractions likely in the anteroseptal area, status post radiofrequency ablation. 2. Normal electric conduction system. 3. Moderate sinus bradycardia. klb/ / D [id number] V [id number] Procedure Note Sally Valverde MD - 11/28/2009 [...] conduction system. MATERIALS USED: 5, 6, 5 Omani sheaths to the left femoral vein forquadruple, octapolar and quadruple electrode catheter to electrically mapHRA, HIS bundle and RV apex. 7 Omani sheath to the right internal jugularfor the Orbitor electrode catheter to map coronary sinus. 7 Omani sheathto the right femoral vein, later on [...] sinusareas. Baseline measurements as follows: QTC 417, KS 165, QRS 95, QT 430,AH 105, HV [...] Post ablation, the patient's baseline was asfollows: KS 156, QRS 104, QT 395, AH 100 [...] seconds. Final baseline on isoproterenol as follows: KS 160, QRS78, QT 374, AH 80, HV 55, with cycle length of 900 at 5 milliseconds. FINAL SUMMARY: 1. RV outflow tract premature ventricular contractions likely in theanteroseptal area, status post radiofrequency ablation. 2. Normal electric conduction system. 3. Moderate sinus bradycardia. klb/ / D [id number] V [id number] Sally Valverde MD FLUOROSCOPY ORDERABLES Final Result documented in this encounter Visit Diagnoses Diagnosis PVCs (premature ventricular contractions) Other premature beats PVC's Other premature beats PVCs (premature ventricular contractions) Other premature beats documented in this encounter Care Teams Staff Rn Relationship Specialty Start Date End Date Rafal Kwok MD [address] [address] PCP - General 11/27/09 documented as of this encounter
--- OUTSIDE RECORDS SUMMARY | 2025-06-03 15:03 | XMS_ITS | Encounter Summary ---
Author Organization [facility] Address [address] [place] [address] Care Team Providers Care Supervisor Education Name Role Phone Rafal Kowk MD Primary Care Provider [phone] Encounter Details Date Type Department Care Team (Latest Contact Info) Description 06/11/2001 Outpatient Historical HIS [facility] Kevin Mabry MD [address] [place] [address] Mastodynia (Primary Dx); Other specified disorder of breast Social History Tobacco Use Types Packs/Day Years Used Date Smoking Tobacco: Never Assessed Comments Unknown Sex and Gender Information Value Date Recorded Sex Assigned at Not on file 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
--- OUTSIDE RECORDS SUMMARY | 2025-06-03 15:03 | XMS_ITS | Encounter Summary ---
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 Gender Identity Not on file Sexual Orientation [...] CDT) MAGNESIUM 2.1 1.7 - 2.4 mg/dL [facility] Blood specimen (specimen) 04/20/2008 2:56 AM CDT 04/20/2008 3:23 AM CDT Jett Hinson MD CHEMISTRY ORDERABLES Final Result Performing Organization Address [facility] Phone Number INTERFACE SYSTEM Refer to clinic/hospital department [facility] CLIA# [id number] [address] [place] [address] * TSH (04/20/2008 2:56 AM CDT) TSH 1.489 0.350 - 5.500 uIU/ml [facility] Blood specimen (specimen) 04/20/2008 2:56 AM CDT 04/20/2008 3:23 AM CDT Jett Hinson MD CHEMISTRY ORDERABLES Final Result Performing Organization Address [facility] Phone Number INTERFACE SYSTEM Refer to clinic/hospital department [facility] CLIA# [id number] [address] [place] [address] * BASIC METABOLIC PANEL (04/20/2008 2:56 AM CDT) BUN 16 7 - 17 mg/dL [facility] CO2 31 22 - 32 mmol/l [facility] OSMOLALITY, CALCULATED 292 275 - 295 mOsm/Kg [facility] POTASSIUM 4.0 3.5 - 5.0 mEq/L [facility] CREATININE 0.7 0.7 - 1.2 mg/dL [facility] CALCIUM 9.1 8.4 - 10.5 mg/dL [facility] GLUCOSE 94 70 - 110 mg/dL [facility] CHLORIDE 106 95 - 110 mEq/L [facility] SODIUM 142 136 - 145 mEq/L [facility] ANION GAP 9 9 - 20 mEq/L [facility] Blood specimen (specimen) 04/20/2008 2:56 AM CDT 04/20/2008 3:23 AM CDT us Jett Hinson MD CHEMISTRY ORDERABLES Final Result INTERFACE SYSTEM Refer to clinic/hospital department [facility] CLIA# [id number] [address] [place] [address] documented in this encounter Visit Diagnoses Diagnosis Hemiplegia affecting unspecified side, 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
--- OUTSIDE RECORDS SUMMARY | 2025-06-03 15:03 | XMS_ITS | Encounter Summary ---
Author Organization [facility] Address [address] [place] [address] Care Team Providers Care Clinical Nurse Occupational Medicine Name Role Phone Rafal Kwok MD Primary Care Provider [phone] Encounter Details Date Type Department Care Team (Latest Contact Info) Description 04/22/1999 Outpatient Historical [facility] Kevin Mabry MD [address] [place] [address] Nonallopathic lesion of abdomen and other sites, not elsewhere classified (Primary Dx) Social History Tobacco Use Types Packs/Day Years Used Date Smoking Tobacco: Never Assessed Comments Unknown Sex and Gender Information Value Date Recorded Sex Assigned at Not on file 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
--- NOTE | 2025-06-03 15:12 | XRR_ITS ---
PROCEDURE INFORMATION: Exam: XR Chest Exam date and time: 06/03/2025 3:14 PM Age: 69 years old Clinical indication: Cough and dyspnea; Prior surgery; Surgery date: 6+ months; Surgery type: Pacer; Additional info: Dyspnea/cough TECHNIQUE: Imaging protocol: Radiologic exam of the chest. Views: 1 view. COMPARISON: CR XR chest 1V portable [id number] 03/30/2025 10:13 PM FINDINGS: Tubes, catheters and devices: Dual lead cardiac pacer again seen. Lungs: Unremarkable. No consolidation. Pleural spaces: Unremarkable. No pleural effusion. No pneumothorax. Heart/Mediastinum: Unremarkable. No cardiomegaly. Bones/joints: Unremarkable. XR/XR chest 1V portable [id number] IMPRESSION: No acute findings.
--- NOTE | 2025-06-03 15:12 | ECG_ITS ---
[facility] Date: 2025-06-03 Pat Name: Alpa Barrera Department: Room: Gender: Female Dance Entertainer: : 1955 Requested By: Rakesh Jansen Order Number: [id number] Reading MD: DANUTA STONE Measurements Intervals [place] Rate: 94 P: 22 [place]: 153 QRS: 10 QRSD: 70 T: 74 QT: 337 QTc: 422 Interpretive Statements SINUS RHYTHM WITH OCCASIONAL ECTOPIC PREMATURE COMPLEXES NONSPECIFIC ST & T-WAVE ABNORMALITY Compared to ECG 03/29/2025 14:14:02 T-wave abnormality now present Atrial-paced complex(es) or rhythm no longer present Myocardial infarct finding no longer present Electronically Signed On 06-04-2025 23:17:49 CDT by DANUTA STONE [id number]
--- NOTE | 2025-06-03 15:15 | W.ED.CHESTPA ---
HPI - Chest Pain General: Chief Complaint: Chest Pain Stated Complaint: high bp Time Seen by Provider: 06/03/25 15:11 History of Present Illness: 69-year-old female presents emergency room complaints of high blood pressure. She had episode of chest pain last night was some shortness of breath respiratory illness with cough. She had some diarrhea and nausea as well. Not having any chest pain at this time. Pain is worse when she takes a deep breath. She also has has a mild abdominal discomfort from cramping and having some diarrhea. Associated symptoms: Reports dyspnea; Deny abdominal pain, fever(s), nausea or vomiting Related Data Home Medications ?Medication ?Instructions ?Recorded ?Confirmed insulin aspart U-100 100 unit/mL See Rx Instructions .Route .COMPLEX 06/24/23 05/31/25 (3 mL) subcutaneous pen (Novolog FlexPen U-100 Insulin aspart) insulin degludec 100 unit/mL (3 22 unit SUBCUT BEDTIME 06/24/23 05/31/25 mL) subcutaneous pen (Tresiba FlexTouch U-100 insulin) nitroglycerin 0.4 mg sublingual 0.4 mg sublingual Q5M PRN Chest 06/24/23 05/31/25 tablet (Nitrostat) Pain olmesartan 20 1 tab PO QAM 06/24/23 05/31/25 mg-hydrochlorothiazide 12.5 mg tablet amitriptyline 75 mg tablet 75 mg PO DAILY 07/06/24 05/31/25 colestipol 1 gram tablet 1 g PO BID 11/22/24 05/31/25 folic acid 1 mg tablet 1 mg PO DAILY 11/22/24 05/31/25 topiramate 100 mg tablet 100 mg PO DAILY 11/22/24 05/31/25 apixaban 5 mg tablet (Eliquis) 5 mg PO BID 03/29/25 05/31/25 isosorbide mononitrate 30 mg 30 mg PO DAILY 03/29/25 05/31/25 tablet,extended release 24 hr sotalol 80 mg tablet 80 mg PO BID 03/29/25 05/31/25 Previous Rx's ?Medication ?Instructions ?Recorded hydrocodone 5 mg-acetaminophen 325 1 tab PO Q8H PRN pain #5 tabs 11/22/24 mg tablet Diabetic shoes and Inserts #1 ea 12/27/24 galcanezumab-gnlm 120 mg/mL See Rx Instructions .Route 01/03/25 subcutaneous pen injector .COMPLEX #1 mL (Emgality Pen) blood-glucose sensor (Dexcom G7 #3 ea 03/29/25 Sensor device) acarbose 100 mg tablet 100 mg PO TID #270 tabs 04/21/25 acarbose 25 mg tablet 25 mg PO TID #90 tabs 04/21/25 acarbose 50 mg tablet 50 mg PO TID #90 tabs 04/21/25 prednisone 5 mg tablet 5 mg PO DAILY #90 tabs 05/31/25 aspirin 81 mg tablet,delayed 81 mg PO DAILY #30 tabs 06/03/25 release ondansetron HCl 4 mg tablet 4 mg PO Q6H PRN nausea and 06/03/25 vomiting #20 tabs Allergies Allergy/AdvReac Type Severity Reaction Status Date / Time Alpha-Gal Allergy Severe ALGY-Hives Verified 04/17/25 15:02 (Zububeymh-Xhhvr-7,3-Gala Penicillins Allergy Intermediate hives Verified 04/17/25 15:02 tramadol AdvReac possibly Verified 04/17/25 15:02 lowered seizure threshold Review of Systems Const: Denies: fever(s) or chills Card: Denies: chest pain Resp: Reports: dyspnea, non-productive cough and chest congestion GI: Reports: diarrhea; Denies: abdominal pain, nausea or vomiting : Denies: dysuria, urinary frequency or urinary urgency Musc: Denies: neck pain or back pain Skin/Breast: Denies: rash PFSH ED PFSH: Medical History Pacemaker Primary hypertension Immunization counseling High risk medication use IDDM (insulin dependent diabetes mellitus) Seropositive rheumatoid arthritis of multiple sites Numbness and tingling of both feet Anticoagulation adequate with anticoagulant therapy Sleep apnea Conversion disorder Stenosis of carotid artery, unspecified laterality Dyslipidemia Type 2 diabetes mellitus without complication, with long-term current use of insulin Paroxysmal atrial fibrillation Surgical History History of knee surgery Dr. Adorno- Bilateral History of hysterectomy History of appendectomy History of cholecystectomy Family History Mother Diabetes Hypertension Father Diabetes CAD (coronary artery disease) Hypertension Sister Hypertension Diabetes Brother Diabetes Social History Smoking and tobacco/nicotine status: former use of tobacco/nicotine Alcohol intake: former Substance/Drug Use: never Household members: spouse Marital status: Current occupational status: disabled Physical Exam Const: GENERAL APPEARANCE: cooperative ORIENTATION/CONSCIOUSNESS: Yes awake, Yes oriented to person, Yes oriented to place and Yes oriented to time HENMT: COMMON NORMALS: normocephalic, atraumatic and hearing grossly normal bilaterally HEAD & SCALP: normocephalic and atraumatic Resp: COMMON NORMALS: normal respiratory effort, No retractions, No use of accessory muscles and clear to auscultation bilaterally AUSCULTATION: clear to auscultation bilaterally Cardio: COMMON NORMALS: regular rate, regular rhythm and No murmurs present (Cardio) RATE: regular rate RHYTHM: regular rhythm GI: COMMON NORMALS: Soft to palpation and No hepatosplenomegaly present AUSCULTATION: Yes normoactive bowel sounds PALPATION: Yes Soft to palpation, No Tenderness to palpation present (GI), No Guarding due to palpation present (GI) and Yes No hepatosplenomegaly present Extremity: COMMON NORMALS: normal to inspection, capillary refill normal, no clubbing, cyanosis or edema, no calf tenderness and no pedal edema Neuro: SENSORIUM/ORIENTATION: Yes oriented to person, Yes oriented to place and Yes oriented to time Skin: COMMON NORMALS: no rashes or lesions noted GENERAL SKIN EXAM: no rashes or lesions noted Course Vital Signs: Vital signs: Vital Signs Temperature 98.0 F 06/03/25 14:59 Pulse Rate 63 06/03/25 17:00 Respiratory Rate 31 H 06/03/25 15:22 Blood Pressure 144/72 06/03/25 17:00 Pulse Oximetry 93 06/03/25 17:00 Oxygen Delivery Me thod Room Air 06/03/25 17:00 MDM - Chest Pain Medical Decision Making Believe some of her chest and abdominal pain may be related to vomiting. she has viral upper respiratory infection. Troponins and EKGs trending negative will discharge patient home. Ondansetron to use as needed. Recommend aspirin daily and follow-up with your primary care doctor. Medical Records I reviewed the patient's medical records. Lab Data I reviewed the patient's lab results. 06/03/25 15:20 06/03/25 15:20 Radiology Impressions Chest X-Ray 06/03/25 15:12 IMPRESSION: No acute findings. Laboratory Results WBC 5.44 10^3/uL (3.29-11.43) 06/03/25 15:20 RBC 4.72 10^6/uL (3.85-5.65) 06/03/25 15:20 Hgb 14.20 g/dL (11.27-16.99) 06/03/25 15:20 Hct 41.9 % (36-47) 06/03/25 15:20 MCV 88.8 fl (85-98) 06/03/25 15:20 MCH 30.1 pg (27-33) 06/03/25 15:20 MCHC 33.9 g/dL (30-55) 06/03/25 15:20 RDW 13.2 % (12.1-15.1) 06/03/25 15:20 Plt Count 154 10^3/cmm (157-399) L 06/03/25 15:20 MPV 11.4 fL (7.4-10.4) H 06/03/25 15:20 Neut % (Auto) 77.4 % 06/03/25 15:20 Lymph % (Auto) 15.8 % 06/03/25 15:20 [place] % (Auto) 5.5 % 06/03/25 15:20 Eos % (Auto) 0.9 % 06/03/25 15:20 Baso % (Auto) 0.2 % 06/03/25 15:20 Neut # (Auto) 4.21 10^3/uL (1.8-7.7) 06/03/25 15:20 Lymph # (Auto) 0.9 10^3/uL (0.8-4.8) 06/03/25 15:20 [place] # (Auto) 0.3 10^3/uL (0.2-0.9) 06/03/25 15:20 Eos # (Auto) 0.1 10^3/uL (0.0-0.8) 06/03/25 15:20 Baso # (Auto) 0.0 10^3/uL (0.0-0.1) 06/03/25 15:20 Nucleated RBC % (auto) 0 % 06/03/25 15:20 Nucleated RBCs # 0.0 /100WBC 06/03/25 15:20 Sodium 140 mmol/L (136-145) 06/03/25 15:20 Potassium 3.8 mmol/L (3.5-5.1) 06/03/25 15:20 Chloride 103 mmol/L (98-107) 06/03/25 15:20 Carbon Dioxide 23 mmol/L (22-29) 06/03/25 15:20 Anion Gap 17.8 (5-19) 06/03/25 15:20 BUN 17 mg/dL (8-23) 06/03/25 15:20 Creatinine 0.7 mg/dL (0.5-0.9) 06/03/25 15:20 GFR Calculation Not Reportable 06/03/25 15:20 Glucose 126 mg/dL (65-115) H 06/03/25 15:20 Calculated Osmolality 293 mOsm/kg (285-295) 06/03/25 15:20 Calcium 9.1 mg/dL (8.5-10.5) 06/03/25 15:20 Total Bilirubin 0.8 mg/dL (0.15-1.2) 06/03/25 15:20 AST 19 U/L (0-32) 06/03/25 15:20 ALT 13 U/L (0-33) 06/03/25 15:20 Alkaline Phosphatase 70 U/L (35-105) 06/03/25 15:20 Troponin T Baseline 23 ng/L (0-10) H 06/03/25 15:20 Troponin T 120 Minute 19.01 ng/L (0-10) H 06/03/25 17:28 Delta Troponin T -3.99 ABS# (0-10) L 06/03/25 17:28 Total Protein 6.8 g/dL (6.6-8.7) 06/03/25 15:20 Albumin 4.1 g/dL (3.5-5.2) 06/03/25 15:20 Globulin 2.7 g/dL (1.3-4.6) 06/03/25 15:20 All radiology interpretation(s) finalized by discharge Discharge Plan Discharge Patient Disposition: Home Clinical Impression: Atypical chest pain, Viral URI Condition: Stable Prescriptions: New ondansetron HCl 4 mg tablet 4 mg PO Q6H PRN (Reason: nausea and vomiting) Qty: 20 0RF aspirin 81 mg tablet,delayed release (DR/EC) 81 mg PO DAILY Qty: 30 0RF No Action prednisone 5 mg tablet 5 mg PO DAILY Qty: 90 0RF amitriptyline 75 mg tablet 75 mg PO DAILY isosorbide mononitrate 30 mg tablet extended release 24 hr 30 mg PO DAILY (DME) Dexcom G7 Sensor Device See Rx Instructions .Route Qty: 3 0RF Rx Instructions: As directed acarbose 50 mg tablet 50 mg PO TID Qty: 90 0RF acarbose 25 mg tablet 25 mg PO TID Qty: 90 0RF acarbose 100 mg tablet 100 mg PO TID Qty: 270 0RF (DME) Diabetic shoes and Inserts See Rx Instructions .Route .MEDSUPPLY Qty: 1 0RF Rx Instructions: As directed Shoe [place] Emgality Pen 120 mg/mL pen injector See Rx Instructions .ROUTE .COMPLEX Qty: 1 6RF Dose Instruction: Inject 120mg subcutaneously ONCE monthly Rx Instructions: Inject 120mg subcutaneously ONCE monthly olmesartan-hydrochlorothiazide 20-12.5 mg tablet 1 tab PO QAM nitroglycerin [Nitrostat] 0.4 mg Tablet, Sublingual 0.4 mg SUBLINGUAL Q5M PRN (Reason: Chest Pain) Rx Instructions: do not exceed 3 doses per episode insulin aspart U-100 [Novolog FlexPen U-100 Insulin] 100 unit/mL (3 mL) insulin pen See Rx Instructions .ROUTE .COMPLEX Rx Instructions: sliding scale subcutaneously up to qid as directed as needed insulin degludec [Tresiba FlexTouch U-100] 100 unit/mL (3 mL) insulin pen 22 unit SUBCUT BEDTIME topiramate 100 mg tablet 100 mg PO DAILY Rx Instructions: TAKE 1 TABLET BY MOUTH EVERY DAY folic acid 1 mg tablet 1 mg PO DAILY colestipol 1 gram tablet 1 g PO BID hydrocodone-acetaminophen 5-325 mg tablet 1 tab PO Q8H PRN (Reason: pain) Qty: 5 0RF sotalol 80 mg tablet 80 mg PO BID Rx Instructions: TAKE 1 TABLET BY MOUTH TWICE DAILY Eliquis 5 mg tablet 5 mg PO BID Rx Instructions: TAKE 1 TABLET BY MOUTH TWICE DAILY Discharge Orders: Discharge ED (Routine); Ordered 06/03/25 Ordered By: Rakesh Tobias Referrals: Rafal Kwok MD [Primary Care Provider, Family Practice] Discharge Diet: Clear Liquid Discharge Activity: Increase activity as tolerated Patient Instructions: Opioid Safety, Pain Management, Patient Portal & Annabelle Instructions Activity Restrictions/Additional Instructions: [facility]. It is very important that you follow up as instructed or that you return to the Emergency Department should you have concerns or if your condition changes or worsens in any way. Emergency department visits are focused on emergent conditions, in some cases you may require further evaluation on an outpatient basis. You were seen in the emergency room with complaints of nausea vomiting and diarrhea accompanied by some chest pain your cardiac enzymes and EKG were unremarkable. White count was normal. Chest x-ray did not show any acute infections or abnormalities. Suspect chest comfort is caused by viral upper respiratory infection. Do recommend he take aspirin daily follow-up with your primary care doctor return if you have further problems. (Please note that included in your discharge packet is information concerning opioid safety and pain management. This information is given to all patients were discharged from the ER regardless of their discharge diagnosis or the medicines they usually take or are prescribed.) Print Language: Armenian Coding Level of Care Code ED Ripening Room Hand for Chg Fwd Heart Score HEART Score Components History: Slightly Suspicous EKG: Normal Age: 65 or more yrs Risk Factors: 1 or 2 Risk Factors Troponin: Baseline Trop 16-45 ng/L HEART Score RESULT HEART Score: 4
[2025-06-03 15:22] VITALS: BP 144/73; PULSE 92; RESP 31; O2SAT 92
[2025-06-03 15:27] LABS: Hematocrit 41.9 % (36-47); Hemoglobin 14.20 g/dL (11.27-16.99); Mean Corpuscular HGB Conc 33.9 g/dL (30-55); Mean Corpuscular Hemoglobin 30.1 pg (27-33); Mean Corpuscular Volume 88.8 fl (85-98); Nucleated Red Blood Cells % 0 %; Platelet Count 154 10^3/cmm (157-399); Red Blood Count 4.72 10^6/uL (3.85-5.65); White Blood Count 5.44 10^3/uL (3.29-11.43)
[2025-06-03 15:43] LABS: Alanine Aminotransferase 13 U/L (0-33); Albumin Level 4.1 g/dL (3.5-5.2); Alkaline Phosphatase 70 U/L (35-105); Anion Gap 17.8 (5-19); Aspartate Amino Transferase 19 U/L (0-32); Blood Urea Nitrogen 17 mg/dL (8-23); Calcium 9.1 mg/dL (8.5-10.5); Carbon Dioxide 23 mmol/L (22-29); Chloride 103 mmol/L (98-107); Creatinine Clr Calc Pharmacy 65.7821; Globulin 2.7 g/dL (1.3-4.6); Glucose 126 mg/dL (65-115); Osmolality Calculated 293 mOsm/kg (285-295); Potassium 3.8 mmol/L (3.5-5.1); Sodium 140 mmol/L (136-145); Total Protein 6.8 g/dL (6.6-8.7)
[2025-06-03 15:44] LABS: Troponin(5th) Baseline 23 ng/L (0-10)
[2025-06-03 17:00] VITALS: BP 144/72; PULSE 63; O2SAT 93
--- NOTE | 2025-06-03 17:20 | ECG_ITS ---
[facility] Date: 2025-[facility]03 Pat Name: Alpa Barrera Department: Room: Gender: Female Manager Lean: : 1955 Requested By: Rakesh Jansen Order Number: [id number] Reading MD: DANUTA STONE Measurements Intervals [place] Rate: 64 P: 20 RI: 167 QRS: -3 QRSD: 75 T: 67 QT: 396 QTc: 411 Interpretive Statements SINUS RHYTHM POSSIBLE ANTERIOR MYOCARDIAL INFARCTION , PROBABLY OLD [30 ms Q WAVE IN V3/V4, OR R < 0.2 mV IN V4] Compared to ECG 06/03/2025 15:03:51 Myocardial infarct finding now present T-wave abnormality no longer present Electronically Signed On 06-04-2025 23:29:58 CDT by DANUTA STONE [id number]
[2025-06-03 17:59] LABS: Troponin 5 2HR 19.01 ng/L (0-10)
[2025-06-03 18:03] LABS: Troponin 5 2HR Delta -3.99 ABS# (0-10)
[2025-06-03 18:27] VITALS: BP 142/62; PULSE 63; O2SAT 94
== END 2025-06-03 18:28 | disposition home or self-care (01) ==
PROVIDERS: Emergency Provider Family Medicine; PCP Family Medicine
DX: R07.89 Other chest pain (principal); J06.9 Acute upper respiratory infection, unspecified; Z79.4 Long term (current) use of insulin; Z79.01 Long term (current) use of anticoagulants; Z87.891 Personal history of nicotine dependence; E11.9 Type 2 diabetes mellitus without complications; E78.5 Hyperlipidemia, unspecified; I10 Essential (primary) hypertension; Z95.0 Presence of cardiac pacemaker
CPT/HCPCS: 36415; 71045; 80053; 84484; 85025; 93005; 99285

== ENCOUNTER → 2025-07-05 12:05 | Outpatient (BNVA) | payer MEDICARE, SELFPAY | PROVIDERS: PCP Family Medicine; Visit Provider Specialist | DX: G43.711 Chronic migraine without aura, intractable, with status migrainosus (principal); G31.84 Mild cognitive impairment of uncertain or unknown etiology; R03.0 Elevated blood-pressure reading, without diagnosis of hypertension | CPT/HCPCS: 99214 ==